=== PATIENT | male | born 1935 | race Caucasian/White ===

== ENCOUNTER → 2016-04-26 | Outpatient (CLI) | payer OTHER | LOC: BHFA 14:00 | PROVIDERS: ATTEND Internal Medicine Cardiovascular Disease | DX: I48.91 Unspecified atrial fibrillation (principal) ==

== ENCOUNTER → 2016-05-03 | Outpatient (CLI) | payer OTHER | LOC: FIMAGING 10:16 | PROVIDERS: ATTEND Physical Medicine & Rehabilitation | DX: G91.9 Hydrocephalus, unspecified (principal) | CPT/HCPCS: 82607-90; 84481-90 ==

== ENCOUNTER → 2016-06-03 | Outpatient (CLI) | payer OTHER ==
[~2016-06-03] MED LIST: IOPAMIDOL (ISOVUE-M 300) 15 ML VIAL IV ONE; LIDOCAINE 1% 30 ML SDV ONE; NA BICARBONATE 50 MEQ/50 ML VIAL ONE
== END ==
LOC: FIMAGING 08:18
PROVIDERS: ATTEND Neurological Surgery
PROC: 3E0R3KZ Introduction of Other Diagnostic Substance into Spinal Canal, Percutaneous Approach (ICD-10-PCS; principal; 2016-06-03)
DX: R26.81 Unsteadiness on feet (principal); G31.9 Degenerative disease of nervous system, unspecified
CPT/HCPCS: 62270; 78630; A9548; Q9967

== ENCOUNTER → 2016-08-12 | Outpatient (CLI) | payer OTHER | LOC: BHFA 15:30 | PROVIDERS: ATTEND Internal Medicine Interventional Cardiology | DX: I65.23 Occlusion and stenosis of bilateral carotid arteries (principal); I48.91 Unspecified atrial fibrillation; I35.2 Nonrheumatic aortic (valve) stenosis with insufficiency ==

== ENCOUNTER → 2017-01-03 | Outpatient (CLI) | payer OTHER ==
[~2017-01-03] MED LIST changes: +IOPAMIDOL (ISOVUE-M 200) 20 ML VIAL ONE; -IOPAMIDOL (ISOVUE-M 300) 15 ML VIAL IV ONE; -LIDOCAINE 1% 30 ML SDV ONE; +LIDOCAINE 1% 300 MG/30 ML SDV ONE; -NA BICARBONATE 50 MEQ/50 ML VIAL ONE
== END ==
LOC: FIMAGING 08:52
PROVIDERS: ATTEND Radiology Diagnostic Radiology
PROC: BR291ZZ Computerized Tomography (CT Scan) of Lumbar Spine using Low Osmolar Contrast (ICD-10-PCS; principal; 2017-01-03)
PROC: B01B1ZZ Fluoroscopy of Spinal Cord using Low Osmolar Contrast (ICD-10-PCS; principal; 2017-01-03)
DX: M48.061 Spinal stenosis, lumbar region without neurogenic claudication (principal)
CPT/HCPCS: 62304; 72132; 72265; Q9966

== ENCOUNTER → 2017-03-04 | Outpatient (CLI) | payer OTHER ==
[~2017-03-04] MED LIST changes: +IOPAMIDOL (ISOVUE-300) 150 ML BTL ONE; -IOPAMIDOL (ISOVUE-M 200) 20 ML VIAL ONE; +IOPAMIDOL (ISOVUE-M 300) 15 ML VIAL ONE
== END ==
LOC: FIMAGING 08:41
PROVIDERS: ATTEND Physician Assistant
DX: M46.49 Discitis, unspecified, multiple sites in spine (principal); M89.39 Hypertrophy of bone, multiple sites; M48.54XA Collapsed vertebra, not elsewhere classified, thoracic region, initial encounter for fracture
CPT/HCPCS: 72126; 72129; 72270; Q9967

== ENCOUNTER → 2017-05-23 | Outpatient (CLI) | payer OTHER | LOC: BMCIMAGING 13:44 | PROVIDERS: ATTEND Physician Assistant | DX: M23.8X1 Other internal derangements of right knee (principal); M22.41 Chondromalacia patellae, right knee ==

== ENCOUNTER 2017-06-28 14:27 | Inpatient (IN) | payer OTHER ==
[2017-06-28] MEDS ORDERED: NS 250 ML IV ONE (14:31)
[2017-06-28 14:38] LABS: PLATELET COUNT 185 10^3/uL (150-400)
--- NOTE | 2017-06-28 14:39 | EDPHY ---
H & P Time Seen by Provider: 06/28/17 14:31 HPI/ROS: CHIEF COMPLAINT: Altered mental status HISTORY OF PRESENT ILLNESS: Patient is a 81-year-old male with a history of diabetes, chronic renal disease and atrial fibrillation who presents to the emergency department after being found slumped on a fence post. When EMS arrived the patient was a and O x2. Per report, his symptoms had slightly improved. He was noted to have a right upper extremity weakness and left lower extremity weakness. EMS reports that glucose was normal. In route, the patient 's symptoms improved. His weakness resolved. Patient has no complaints at this time. He does not recall what happened. He does not know why he was lying on the fence post. Patient has no headache or neck pain. No chest pain or shortness of breath. No abdominal pain. No nausea or vomiting. The patient does not feel weak or numb. He has no visual change. Patient states that the only thing bothering him is us. REVIEW OF SYSTEMS: My complete review of systems is negative except as mentioned in the HPI. Past Medical/Surgical History: Includes diabetes, chronic renal disease, skin cancer, AFib Past surgical history: Noncontributory Social history: The patient does not smoke. Smoking Status: Never smoked Physical Exam: Vitals noted. Afebrile at 38 GENERAL: Well-appearing, in no acute distress, alert. HEENT: Eyes normal to inspection, normal pharynx, no signs of dehydration. NECK: No thyromegaly, no lymphadenopathy, supple. RESPIRATORY: Clear to auscultation bilaterally, no rales, rhonchi or wheezing. CVS: Regular rate and rhythm, no rubs, murmurs, or gallops. ABDOMEN: Soft, nontender, nondistended, no organomegaly. BACK: Normal to inspection, no CVA tenderness. SKIN: Normal color, no rash, warm, dry. No pallor. EXTREMITIES: No pedal edema, no calf tenderness, no Homans sign or cords, no joint swelling. NEURO/PSYCH: Higher functions: Alert and Oriented x3. Normal speech and cognition. Normal mood and affect. Cranial nerves: Normal as tested. Cerebellar: Normal as tested. Good finger to nose. Peripheral exam: Normal motor exam. Normal sensation. NIHSS = 0 Constitutional: Initial Vital Signs Temperature (C) 38.4 C H 06/28/17 14:27 Heart Rate 70 04/28/18 14:27 Respiratory Rate 16 06/28/17 14:27 Blood Pressure 126/76 H 06/28/17 14:27 O2 Sat (%) 93 06/28/17 14:27 O2 Delivery Mode Room Air Allergies/Adverse Reactions: CHICKEN FEATHERS Allergy (Mild, Uncoded 12/31/16 10:26) TESTED POSITIVE DUST Allergy (Mild, Uncoded 12/31/16 10:26) TESTED POSITIVE Home Medications: Medication Instructions Recorded Herbals/Supplements -Info Only 1 each PO AD 05/08/13 Metoprolol Succinate Xr [Toprol Xl 25 mg PO DAILY 05/08/13 50 mg (RX)] Naproxen [Naprosyn] 500 mg PO BID PRN 05/08/13 Furosemide [Lasix 20 MG (RX)] 10 mg PO 12/09/13 Warfarin Sodium 2.5 mg PO 12/09/13 GABAPENTIN 600 mg PO BID 02/27/17 Metformin HCl 500 mg PO DAILY 02/27/17 Medical Decision Making - Diagnostics Imaging Results: Imaging Impressions Chest X-Ray 06/28/17 14:31 Impression: No evidence for acute cardiopulmonary abnormality. Stable cardiomegaly. Other chronic findings as above. Head CT 06/28/17 14:31 Impression: No evidence for acute intracranial abnormality. Mild periventricular and deep hemispheric white matter change that can be seen with small vessel ischemic disease. Mild generalized cerebral atrophy. Results called and discussed with Dr. Carolyn Ceja on June 28, 2017 at 1511 hours. ED Course/Re-evaluation: In the emergency department I met EMS on arrival. I took report from the group product manager. On the patient's arrival he had no complaints. He did not recall the event. Laboratory studies, EKG, head CT and chest x-ray were ordered. Because the patient was noted to have a fever, blood cultures were ordered. Reviewed the patient's laboratory studies. White count was elevated at 12. Chemistry panel is unremarkable. INR was 1.2. His troponin was negative. Lactic acid is pending. EKG: Atrial fib at 70. Ventricular paced rhythm Chest x-ray: No acute disease I rechecked the patient while here. He had no notable focal deficits on repeat exam. He did not recall the event against a fence post. I am still waiting urine. The consider lumbar puncture but at this time he has no headache, photophobia, neck stiffness or other signs of meningitis or encephalitis. I discussed the case with Dr. Jones. She will admit the patient. 1638: Repeat temperature was 37.4 degrees. Differential Diagnosis: My differential includes but not limited to ischemic CVA, hemorrhagic CVA, dissection, aneurysm, TIA, ACS, acute IN, electrolyte abnormality, sugar abnormality, bacteremia, sepsis, pneumonia, urinary tract infection, meningitis , encephalitis - Data Points Laboratory Results: Laboratory Results 06/28/17 14:35 06/28/17 14:35 06/28/17 06/28/17 06/28/17 15:40 14:35 14:35 WBC RBC Hgb Hct MCV MCH MCHC RDW Plt Count MPV Neut % (Auto) Lymph % (Auto) [place] % (Auto) Eos % (Auto) Baso % (Auto) Nucleat RBC Rel Count Absolute Neuts (auto) Absolute Lymphs (auto) Absolute Monos (auto) Absolute Eos (auto) Absolute Basos (auto) Absolute Nucleated RBC Immature Gran % Immature Gran # PT 15.4 SEC H SEC (12.0-15.0) INR 1.20 H (0.83-1.16) APTT 32.2 SEC SEC (23.0-38.0) VBG Lactic Acid 1.1 mmol/L mmol/L (0.7-2.1) Sodium 141 mEq/L mEq/L (135-145) Potassium 4.9 mEq/L mEq/L (3.5-5.2) Chloride 103 mEq/L mEq/L (97-110) Carbon Dioxide 24 mEq/l mEq/l (22-31) Anion Gap 14 mEq/L mEq/L (8-16) BUN 27 mg/dL H mg/dL (7-23) Creatinine 0.8 mg/dL mg/dL (0.7-1.3) Estimated GFR > 60 Glucose 110 mg/dL H mg/dL (70-100) Calcium 9.2 mg/dL mg/dL (8.5-10.4) Troponin I < 0.012 ng/mL ng/mL (0.000-0.034) 06/28/17 14:35 WBC 12.02 10^3/uL H 10^3/uL (3.80-9.50) RBC 4.94 10^6/uL 10^6/uL (4.40-6.38) Hgb 15.5 g/dL g/dL (13.7-17.5) Hct 43.5 % % (40.0-51.0) MCV 88.1 fL fL (81.5-99.8) MCH 31.4 pg pg (27.9-34.1) MCHC 35.6 g/dL g/dL (32.4-36.7) RDW 13.2 % % (11.5-15.2) Plt Count 185 10^3/uL 10^3/uL (150-400) MPV 10.8 fL fL (8.7-11.7) Neut % (Auto) 85.2 % H % (39.3-74.2) Lymph % (Auto) 7.3 % L % (15.0-45.0) [place] % (Auto) 6.7 % % (4.5-13.0) Eos % (Auto) 0.2 % L % (0.6-7.6) Baso % (Auto) 0.2 % L % (0.3-1.7) Nucleat RBC Rel Count 0.0 % % (0.0-0.2) Absolute Neuts (auto) 10.25 10^3/uL H 10^3/uL (1.70-6.50) Absolute Lymphs (auto) 0.88 10^3/uL L 10^3/uL (1.00-3.00) Absolute Monos (auto) 0.80 10^3/uL 10^3/uL (0.30-0.80) Absolute Eos (auto) 0.02 10^3/uL L 10^3/uL (0.03-0.40) Absolute Basos (auto) 0.02 10^3/uL 10^3/uL (0.02-0.10) Absolute Nucleated RBC 0.00 10^3/uL 10^3/uL (0-0.01) Immature Gran % 0.4 % % (0.0-1.1) Immature Gran # 0.05 10^3/uL 10^3/uL (0.00-0.10) PT INR APTT VBG Lactic Acid Sodium Potassium Chloride Carbon Dioxide Anion Gap BUN Creatinine Estimated GFR Glucose Calcium Troponin I Medications Given: Discontinued Medications Sodium Chloride (Ns) 250 mls @ 500 mls/hr IV EDNOW ONE PRN Reason: Protocol Stop: 06/28/17 15:00 Last Admin: 06/28/17 15:11 Dose: 250 mls Departure - Departure Disposition: [facility] Acute Clinical Impression: Altered mental status Qualifiers: Altered mental status type: unspecified Qualified Code(s): R41.82 - Altered mental status, unspecified Condition: Good
[2017-06-28 14:49] LABS: INR 1.2 (0.83-1.16); PROTIME(PATIENT) 15.4 SEC (12.0-15.0)
--- NOTE | 2017-06-28 14:53 | CPEKG ---
Heart Rate: 70 RR Interval: 857 QRSD Interval: 154 QT Interval: 436 QTC Interval: 471 QRS [place]: 262 T Wave [place]: 93 EKG Severity - ABNORMAL ECG - EKG Impression: AFIB/FLUTTER AND VENTRICULAR-PACED RHYTHM Electronically Signed By: Neal Abdi 28-Jun-2017 22:19:22
[2017-06-28] MEDS ORDERED: NS 1,000 ML IV SCH (17:00)
[2017-06-28] MEDS ORDERED: ONDANSETRON DISINTEGRATING 4 MG TAB PO PRN (17:00)
[2017-06-28] MEDS ORDERED: ONDANSETRON 4 MG/2 ML VIAL IVP PRN (17:00)
[2017-06-28] MEDS ORDERED: ACETAMINOPHEN 325 MG TAB PO PRN (17:00)
[2017-06-28] MEDS ORDERED: D50W 25 GM/50 ML SYR IVP PRN (17:17)
[2017-06-28] MEDS ORDERED: WARFARIN SODIUM 2.5 MG TAB PO ONE (17:45)
--- NOTE | 2017-06-28 18:04 | GHP ---
[f rep st] HISTORY AND PHYSICAL DATE OF ADMISSION: 06/28/2017 CHIEF COMPLAINT: Found down. HISTORY OF PRESENT ILLNESS: The patient is a 81-year-old male with a history of diabetes, chronic kidney disease, diastolic heart failure and atrial fibrillation who presented to the emergency department via EMS after he was found slumped against a fence. He actually has no recollection of the events that occurred today. Per chart review, he has a history of dementia and has had previous workups by both Neurosurgery and [facility] Neurology for possible normal-pressure hydrocephalus. Lumbar puncture and cisternogram performed last year were not suggestive of NPH. His neurology consult at [facility] felt his symptoms were consistent with dementia either from Alzheimer's or vascular etiology. He has had chronic ataxia and has been followed by the neurosurgery service and is noted to have degenerative disk disease and spinal stenosis. Upon arrival to the emergency department, he had a temperature of 38.4. He was otherwise hemodynamically stable. He was initially reported by EMS to have right upper extremity and left lower extremity weakness. However, he moved all 4 extremities with no focal neuro deficits in the ED. He is able to tell me that he lives alone. He denies chest pain, shortness of breath, cough, or heart palpitations. He also denies orthopnea or paroxysmal dyspnea. He does have a history of chronic lower extremity edema. I also note he recently had his pacemaker interrogated on June 16 of this month and there was no evidence of high ventricular rates. He does endorse dysuria and urinary frequency and urgency. He denies abdominal pain, nausea, or vomiting. He is not sure if he has had fever or chills, but as above, he is febrile upon presentation. Workup in the emergency department reveals a white blood cell count of 12,000, temperature of 38.4. There was suspicion for infection. Blood cultures were drawn. He is admitted to the hospital for further evaluation. PAST MEDICAL HISTORY: 1. Diabetes mellitus. 2. Chronic kidney disease. 3. History of skin cancer. 4. Chronic heart failure. The last echo in our system was in 2010 and showed evidence of diastolic dysfunction. 5. Chronic lower extremity edema. 6. Atrial fibrillation, status post ablation and subsequently required ARTHUR cardioversion. 7. Sick sinus syndrome, status post pacemaker, which was interrogated June, with no evidence of high ventricular rates. 8. Dementia. Per Neurology consultation at [facility] in April 2017, either Alzheimer's versus vascular etiology. 9. Coronary artery disease based on angiogram from 2009. MEDICATIONS: Please see [facility] for completed updated outpatient medication list. ALLERGIES: Chicken feathers and dust. FAMILY HISTORY: Reviewed and noncontributory. SOCIAL HISTORY: The patient lives alone independently. He has a significant other who is not present at the bedside. He denies tobacco and alcohol. REVIEW OF SYSTEMS: A 10-point review of systems was performed and is negative except as per HPI. OBJECTIVE: VITAL SIGNS: Temperature 38.4 on arrival, repeat is 37.4, current blood pressure 115/68, heart rate 71, respiratory rate 16. He is 92% on room air. GENERAL: The patient is awake, alert, oriented to person only. HEENT: Head is atraumatic, normocephalic. Pupils equal, round, and reactive to light. Extraocular muscles intact. Oropharynx is clear. Mucous membranes are dry. NECK: Supple. There is no JVD. HEART: Regular rate and rhythm. LUNGS: Clear to auscultation bilaterally. ABDOMEN: Soft, obese, nondistended, nontender with normoactive bowel tones. EXTREMITIES: 2+ bilateral pitting lower extremity edema. NEUROLOGIC: He has no facial asymmetry. Pronator drift is negative. No focal motor deficits. LABORATORY DATA: CBC reveals a white blood cell count of 12, with 85% neutrophils. INR is 1.2. Lactic acid 1.1. Basic metabolic panel is remarkable for BUN of 27. Troponin is negative. Procalcitonin is pending. Head CT performed in the emergency department shows no acute intracranial abnormality. White matter changes are noted, possibly related to small-vessel ischemic disease, as well as mild generalized cerebral atrophy. Chest x-ray from the emergency department, personally reviewed and interpreted. There is no acute cardiopulmonary process. He does have stable cardiomegaly and evidence of a cardiac pacemaker. EKG shows a ventricular paced rhythm with a rate of 70. ASSESSMENT/PLAN: The patient is a 81-year-old male with history of multiple medical problems including recently diagnosed dementia, who presented to the emergency department after being found unresponsive. Acute encephalopathy. I suspect an infectious etiology given his fever, elevated white count, and urinary symptoms. Chest x-ray is clear. Urinalysis is still pending. He will be bladder scanned now and straight cath if indicated. Blood cultures are pending. We will also send urine culture if indicated. I will check a procalcitonin and likely start him on ceftriaxone, but will await his UA results first. He has no septic physiology with a normal lactate. UTI. BCx's and UCx pending. Starting Ceftriaxone. Turns out he straight caths QID for urinary retention. Atrial fibrillation, status post pacemaker. He is currently rate controlled. It looks like he takes Coumadin, though his INR is subtherapeutic. Will ask pharmacy to dose Coumadin and likely continue his metoprolol in the morning if he remains normotensive. I reviewed his outpatient records. He just had his pacemaker interrogated last week, which showed no evidence of tachycardia, atrial fibrillation, or high ventricular rates. Diabetes mellitus type 2. His blood sugar on arrival was 110. Will hold his metformin and start sliding scale insulin. Send an A1c. Dementia. Recently evaluated by Neurology at [facility], thought to be either Alzheimer's or vascular in etiology. He has previously had evaluations for normal-pressure hydrocephalus, and per his recent neurology consult, he is not thought to have NPH. Chronic ataxia. He has been followed by Neurosurgery and has evidence of degenerative disk disease, as well as spinal and neuroforaminal stenosis. PT and OT evaluations are requested. Deep venous thrombosis prophylaxis. Will give prophylactic dose Lovenox given his subtherapeutic INR. This can be stopped once his INR is closer to therapeutic range. Code status. The patient is full code. Disposition. The patient is admitted to inpatient status. I anticipate greater than 48 hours hospitalization for ongoing evaluation and management of his acute encephalopathy and possibly associated infection, PT and OT evaluations are requested. He may warrant SNF rehab. /[id number]/MODL MTDD
[2017-06-28] MEDS: INSULIN LISPRO 100 UNIT/ML SC SCH (18:10)
--- NOTE | 2017-06-28 18:46 | PDMN ---
Medical Necessity Medical necessity: C/M review: est. > 2 MN LOS for eval and TX of acute encephalopathy, suspect infectious etiology given fever, elevated WBC And urinary symptoms, UA results pending, requiring IV fluids x 1 bag, ongoing IV Ceftriaxone, acute inpt PT/OT, comorbid patient found unresponsive just prior to this admission, atrial fibrillation S/P pacemaker, type 2 diabetes, dementia , chronic ataxia, history of chronic kidney disease, chronic heart failure, skin cancer, chronic lower extremity edema, CAD, sick sinus syndrome S/P pacemaker per H/P.
[2017-06-28] MEDS: METOPROLOL TARTRATE 50 MG TAB PO SCH (20:55)
[2017-06-28] MEDS: GABAPENTIN 300 MG CAP PO SCH (20:55)
[2017-06-29 05:14] LABS: PLATELET COUNT 158 10^3/uL (150-400)
[2017-06-29 05:22] LABS: INR 1.29 (0.83-1.16); PROTIME(PATIENT) 16.3 SEC (12.0-15.0)
[2017-06-29] MEDS: INSULIN LISPRO 100 UNIT/ML SC SCH ×3 (07:37→17:49)
[2017-06-29] MEDS: ENOXAPARIN 40 MG/0.4 ML SYR SC SCH (08:43)
[2017-06-29] MEDS: METOPROLOL TARTRATE 50 MG TAB PO SCH ×2 (08:44→22:02)
[2017-06-29] MEDS: GABAPENTIN 300 MG CAP PO SCH ×2 (08:44→22:02)
[2017-06-29] MEDS: FUROSEMIDE 20 MG TAB PO SCH (08:44)
--- NOTE | 2017-06-29 13:21 | HOSPPROG ---
Hospitalist Progress Note Assessment/Plan: Patient is a 81-year-old male with a history of diabetes, chronic kidney disease , diastolic heart failure and atrial fibrillation who presented the emergency department via EMS after he was found slumped against a fence. He had no recollection of the events that occurred. He has a history of dementia and has had workups by Neurosurgery and [facility] Neurology for possible normal pressure hydrocephalus. He had a consult at [facility] who felt his symptoms were consistent with dementia either from Alzheimer's or vascular etiology. Today is my 1st encounter with the patient. Chart reviewed. * acute encephalopathy -CT of the head shows no inter no acute intracranial abnormality. He has white matter changes -chest x-ray shows no acute cardiopulmonary process he does have stable cardiomegaly -EKG shows AV paced rhythm -suspect this is secondary from a urinary tract infection -procalcitonin is 0.12 * urinary tract infection -started on ceftriaxone-awaiting for urine culture and blood culture -patient self caths 4 x day -trial of flomax * atrial fibrillation status post pacemaker -metoprolol and Coumadin -INR is subtherapeutic, he sees Dr Wright in OP setting * diabetes type 2 -A1c is pending * dementia -he lives alone, concerned he doesn't have insight on his care * chronic ataxia -PT and OT to see *chronic lower extremity edema -patient said this has been ongoing for years, he doesn't know why *Plan: will ask PT, OT and ST to see, concerned he needs a higher level of care and will likely refuse. During my interview he is alert and oriented, but unclear how he got here and why he is here. Subjective: Jamey says he feels better today. No complaints. Objective: Vital Signs Temp Pulse Resp BP Pulse Ox 36.4 C 77 16 118/80 95 06/29/17 12:14 06/29/17 12:14 06/29/17 12:14 06/29/17 12:14 06/29/17 12:14 Laboratory Results 06/29/17 04:40 06/29/17 04:40 06/28/17 06/29/17 06/30/17 05:59 05:59 05:59 Intake Total 1250 Output Total 1025 600 Balance 225 -600 PT 16.3 SEC (12.0-15.0) H 06/29/17 04:40 INR 1.29 (0.83-1.16) H 06/29/17 04:40 - Physical Exam Constitutional: no apparent distress, appears nourished, not in pain Eyes: PERRL Ears, Nose, Mouth, Throat: hearing normal Cardiovascular: regular rate and rhythym Respiratory: no respiratory distress Gastrointestinal: normoactive bowel sounds, other (round abdomen) Skin: warm Neurologic: AAOx3 Psychiatric: thought process linear, poor insight, poor judgement, poor memory ICD10 Worksheet Patient Problems: Problems Problem Status Onset Altered mental status Acute Chest pain Acute
--- NOTE | 2017-06-29 15:04 | ASMTCMCOM ---
CM Note CM Note Notes: Patient found down with no recollection of what happened. In the ED, he was able to provide more history. He has a cardiac history and is seen by Dr Hopkins. He also has kidney disease and diabetes. Patient has a UTI. He tells me he straight catheterizes himself 2x day. I tried to explain to him that the medical team does not feel he's safe to return home. I explained that we could arrange home care or that he could go to a SNF. He displayed very little insight into his situation and the fact that he was found outside, passed out, with no knowlege of the precipitating event. He says he needs to pay his rent on 07/01. Per patient and demographics, he has a friend/girlfriend named Komal who drives him places since he recently lost his license (he says it was due to an address change). I suggested that she could bring him his checkbook if he is still here on 07/01. I encouraged patient to think about what he will agree to upon discharge since we will likely require that he either go to SNF or have home care. Case Management will follow. Date Signed: 06/29/2017 03:03 PM Electronically Signed By:Heather Gardner RN
[2017-06-29] MEDS ORDERED: WARFARIN SODIUM 2.5 MG TAB PO SCH (16:00)
[2017-06-30 05:36] LABS: INR 1.24 (0.83-1.16); PROTIME(PATIENT) 15.8 SEC (12.0-15.0)
[2017-06-30] MEDS: INSULIN LISPRO 100 UNIT/ML SC SCH ×4 (08:24→22:03)
[2017-06-30] MEDS: METOPROLOL TARTRATE 50 MG TAB PO SCH ×2 (08:27→21:47)
[2017-06-30] MEDS: ENOXAPARIN 40 MG/0.4 ML SYR SC SCH (08:27)
[2017-06-30] MEDS: GABAPENTIN 300 MG CAP PO SCH ×2 (08:27→21:47)
[2017-06-30] MEDS: FUROSEMIDE 20 MG TAB PO SCH (08:27)
[2017-06-30] MEDS ORDERED: FUROSEMIDE 20 MG/2 ML VIAL IVP ONE (09:40)
--- NOTE | 2017-06-30 09:40 | HOSPPROG ---
Hospitalist Progress Note Assessment/Plan: Patient is a 81-year-old male with a history of diabetes, chronic kidney disease , diastolic heart failure and atrial fibrillation who presented the emergency department via EMS after he was found slumped against a fence. He had no recollection of the events that occurred. He has a history of dementia and has had workups by Neurosurgery and [facility] Neurology for possible normal pressure hydrocephalus. He had a consult at [facility] who felt his symptoms were consistent with dementia either from Alzheimer's or vascular etiology. * acute encephalopathy -CT of the head shows no inter no acute intracranial abnormality. He has white matter changes -chest x-ray shows no acute cardiopulmonary process he does have stable cardiomegaly -EKG shows AV paced rhythm -suspect this is secondary from a urinary tract infection -procalcitonin is 0.12 -he is back to his baseline most likely, he is alert and oriented -blood cx show no growth * urinary tract infection -started on ceftriaxone-urine culture is lyon sensitive -patient self caths 4 x day (have asked nursing staff to monitor him when he self caths) -trial of flomax *Urinary retention * atrial fibrillation status post pacemaker -metoprolol and Coumadin -INR is subtherapeutic, he sees Dr Wright in OP setting * diabetes type 2 -A1c is 6.3 * dementia -he lives alone, concerned he doesn't have insight on his care -he is definitely clearer today and has an understanding of his PMH * chronic ataxia -PT and OT seeing -reviewed PT note and patient has a wide gait, at baseline uses a cane -recommendation is a SNF vs home care *chronic lower extremity edema -patient said this has been ongoing for years, he doesn't know why -bit worse today, will add one dose of iv lasix and compression hose *Plan: give a low dose of iv Lasix today. he refuses snf, he has improved during his stay, hopefully can dc soon Subjective: Jamey wants to go home. Objective: Vital Signs Temp Pulse Resp BP Pulse Ox 36.6 C 77 18 153/95 H 92 06/30/17 08:00 06/30/17 08:27 06/30/17 08:00 06/30/17 08:27 06/30/17 08:00 Microbiology 06/28/17 17:05 Urine Culture - Final Urine,Clean Catch Escherichia Coli Laboratory Results 06/29/17 04:40 06/29/17 04:40 06/29/17 06/30/17 07/01/17 05:59 05:59 05:59 Intake Total 1250 650 Output Total 1025 2024 200 Balance 225 -1375 -200 PT 15.8 SEC (12.0-15.0) H 06/30/17 05:10 INR 1.24 (0.83-1.16) H 06/30/17 05:10 - Physical Exam Constitutional: not in pain, chronically ill appearing Eyes: PERRL Ears, Nose, Mouth, Throat: hearing normal Cardiovascular: regular rate and rhythym, edema (2+ pitting edema in lower ext) Respiratory: no respiratory distress Gastrointestinal: normoactive bowel sounds Skin: warm, other (right great toe reddened, patient says he has chronic fungal infections) Neurologic: AAOx3 Psychiatric: interacting appropriately, not anxious, poor insight, poor memory ICD10 Worksheet Patient Problems: Problems Problem Status Onset Altered mental status Acute Chest pain Acute
[2017-06-30] MEDS ORDERED: FUROSEMIDE 20 MG/2 ML VIAL ONE (12:02)
[2017-06-30] MEDS ORDERED: WARFARIN SODIUM 5 MG TAB PO ONE (16:00)
--- NOTE | 2017-06-30 16:56 | ASMTCMCOM ---
CM Note CM Note Notes: PT/OT recommending SNF. Met w/pt to discuss and was open to idea of SNF. We talked about HHC too and he said he would prefer SNF rehab. Pt does have some dementia so I was hoping to meet w/girlfriend Komal also but was not at hospital; I did leave voicemail with her to discuss SNF choices. Sent referral to 2 SNF's in [place] since pt resides in [place], however, need to discuss w/Komal as I am not sure where she resides and she does seem to be quite involved as pt lives w/her part-time. CM will follow. Date Signed: 06/30/2017 04:56 PM Electronically Signed By:Serena Rodrigues RN
[2017-07-01 05:22] LABS: INR 1.22 (0.83-1.16); PROTIME(PATIENT) 15.6 SEC (12.0-15.0)
[2017-07-01] MEDS: ENOXAPARIN 40 MG/0.4 ML SYR SC SCH (09:07)
[2017-07-01] MEDS: GABAPENTIN 300 MG CAP PO SCH ×2 (09:08→21:30)
[2017-07-01] MEDS: metFORMIN HCL 500 MG TAB PO SCH (09:08)
[2017-07-01] MEDS: FUROSEMIDE 20 MG TAB PO SCH (09:08)
[2017-07-01] MEDS: METOPROLOL TARTRATE 50 MG TAB PO SCH ×2 (09:09→21:30)
[2017-07-01] MEDS: INSULIN LISPRO 100 UNIT/ML SC SCH ×3 (09:30→18:33)
[2017-07-01] MEDS ORDERED: WARFARIN SODIUM 5 MG TAB PO ONE (16:00)
--- NOTE | 2017-07-01 16:16 | ASMTCMCOM ---
CM Note CM Note Notes: Today pt and girlfriend Komal ([phone]) request SNF in [place], pt accepted at [facility]. Komal reports she will take pt to live w her after d/c from SNF, at least until the end of summer. Pt completed paperwork today naming Komal as MDPOA. D/c plan of care: [facility] when medically stable. Date Signed: 07/01/2017 04:16 PM Electronically Signed By:FATOU Chakraborty
--- NOTE | 2017-07-01 17:15 | HOSPPROG ---
Hospitalist Progress Note Assessment/Plan: Patient is a 81-year-old male with a history of diabetes, chronic kidney disease , diastolic heart failure and atrial fibrillation who presented the emergency department via EMS after he was found slumped against a fence. He had no recollection of the events that occurred. He has a history of dementia and has had workups by Neurosurgery and [facility] Neurology for possible normal pressure hydrocephalus. He had a consult at [facility] who felt his symptoms were consistent with dementia either from Alzheimer's or vascular etiology. * acute encephalopathy -CT of the head shows no inter no acute intracranial abnormality. He has white matter changes -chest x-ray shows no acute cardiopulmonary process he does have stable cardiomegaly -EKG shows AV paced rhythm -suspect this is secondary from a urinary tract infection -procalcitonin is 0.12 -he is back to his baseline most likely, he is alert and oriented -blood cx show no growth * urinary tract infection associated with slef cath 4 x day -started on ceftriaxone-urine culture is lyon sensitive -patient self caths 4 x day (have asked nursing staff to monitor him when he self caths) -trial of flomax *Urinary retention * atrial fibrillation status post pacemaker -metoprolol and Coumadin -INR is subtherapeutic, he sees Dr Wright in OP setting * diabetes type 2 -A1c is 6.3 * dementia -he lives alone, concerned he doesn't have insight on his care -he is definitely clearer today and has an understanding of his PMH * chronic ataxia -PT and OT seeing -reviewed PT note and patient has a wide gait, at baseline uses a cane -recommendation is a SNF vs home care *chronic lower extremity edema -patient said this has been ongoing for years, he doesn't know why -bit worse today, will add one dose of iv lasix and compression hose *Plan: Jamey is willing to go to rehab to strengthen, his friend Komal was at the bedside during my evaluation. She is concerned he had heat stroke. Was outside Friday all day with his jacket on, not eating or drinking much. He is not feeling well today and would like to stay another night. He is very tired. Have asked nursing staff not to do vital signs at night. Subjective: Jamey said he feels exhausted and wants to rest. Objective: Vital Signs Temp Pulse Resp BP Pulse Ox 36.6 C 71 16 115/71 90 L 07/01/17 15:41 07/01/17 15:41 07/01/17 15:41 07/01/17 15:41 07/01/17 15:41 Laboratory Results 06/29/17 04:40 07/01/17 04:36 06/30/17 07/01/17 07/02/17 05:59 05:59 05:59 Intake Total 650 450 500 Output Total 2024 310 650 Balance -1375 -2650 -150 PT 15.6 SEC (12.0-15.0) H 07/01/17 04:36 INR 1.22 (0.83-1.16) H 07/01/17 04:36 - Physical Exam Constitutional: appears nourished, not in pain, chronically ill appearing Eyes: PERRL Ears, Nose, Mouth, Throat: hearing normal Cardiovascular: regular rate and rhythym Respiratory: no respiratory distress Skin: warm Musculoskeletal: generalized weakness Neurologic: AAOx3 Psychiatric: interacting appropriately ICD10 Worksheet Patient Problems: Problems Problem Status Onset Altered mental status Acute Chest pain Acute
[2017-07-02 05:32] LABS: INR 1.4 (0.83-1.16); PROTIME(PATIENT) 17.3 SEC (12.0-15.0)
[2017-07-02] MEDS: METOPROLOL TARTRATE 50 MG TAB PO SCH (05:34)
[2017-07-02 08:09] VITALS: BP 144/89
[2017-07-02] MEDS: INSULIN LISPRO 100 UNIT/ML SC SCH ×2 (08:14→12:58)
--- NOTE | 2017-07-02 08:38 | HOSPPROG ---
Hospitalist Progress Note Assessment/Plan: Patient is a 81-year-old male with a history of diabetes, chronic kidney disease , diastolic heart failure and atrial fibrillation who presented the emergency department via EMS after he was found slumped against a fence. He had no recollection of the events that occurred. He has a history of dementia and has had workups by Neurosurgery and [facility] Neurology for possible normal pressure hydrocephalus. He had a consult at [facility] who felt his symptoms were consistent with dementia either from Alzheimer's or vascular etiology. * acute encephalopathy -CT of the head shows no inter no acute intracranial abnormality. He has white matter changes -chest x-ray shows no acute cardiopulmonary process he does have stable cardiomegaly -EKG shows AV paced rhythm -suspect this is secondary from a urinary tract infection -procalcitonin is 0.12 -he is back to his baseline most likely, he is alert and oriented -blood cx show no growth * urinary tract infection associated with self cath 4 x day -started on ceftriaxone-urine culture is lyon sensitive -patient self caths 4 x day (have asked nursing staff to monitor him when he self caths) -trial of flomax *Urinary retention -self caths * atrial fibrillation status post pacemaker -metoprolol and Coumadin -INR is subtherapeutic, he sees Dr Wright in OP setting * diabetes type 2 -A1c is 6.3 * dementia -he lives alone, concerned he doesn't have insight on his care -he is definitely clearer today and has an understanding of his PMH * chronic ataxia -PT and OT seeing -reviewed PT note and patient has a wide gait, at baseline uses a cane -recommendation is a SNF *chronic lower extremity edema -patient said this has been ongoing for years, he doesn't know why -bit worse today, will add one dose of iv lasix and compression hose *Plan: rehab today Subjective: Jamey has no complaints. Objective: Vital Signs Temp Pulse Resp BP Pulse Ox 36.5 C 77 17 144/89 H 94 07/02/17 08:09 07/02/17 08:09 07/02/17 08:09 07/02/17 08:09 07/02/17 08:09 Laboratory Results 06/29/17 04:40 07/01/17 04:36 05/01/18 05/02/18 05/03/18 05:59 05:59 05:59 Intake Total 450 800 Output Total 3100 1700 550 Balance -2650 -900 -550 PT 17.3 SEC (12.0-15.0) H 07/02/17 04:33 INR 1.40 (0.83-1.16) H 07/02/17 04:33 - Physical Exam Constitutional: no apparent distress, appears nourished, not in pain Eyes: PERRL Ears, Nose, Mouth, Throat: hearing normal Cardiovascular: regular rate and rhythym Respiratory: no respiratory distress Skin: warm Musculoskeletal: generalized weakness Psychiatric: interacting appropriately (patient has sig short term memory losses , doesn't remember me after caring for him for the last several days. ), poor memory ICD10 Worksheet Patient Problems: Problems Problem Status Onset Altered mental status Acute Chest pain Acute
--- NOTE | 2017-07-02 08:50 | PDIAF ---
- Diagnosis Diagnosis: acute on chronic encephalopathy,uti Code Status: Full Code - Medication Management Discharge Medications: Medications to Continue on Transfer Herbals/Supplements -Info Only 1 each PO AD 05/08/13 [Last Taken Unknown] Furosemide [Lasix 20 MG (*)] 10 mg PO DAILY 12/09/13 [Last Taken 06/28/17] Gabapentin [Neurontin 300 MG (*)] 600 mg PO BID 02/27/17 [Last Taken 06/28/17 08 :00] metFORMIN HCL [Metformin HCl] 500 mg PO DAILY 02/27/17 [Last Taken 06/28/17] Metoprolol Tartrate 50 mg PO BID 06/28/17 [Last Taken 06/28/17 08:00] Acetaminophen [Tylenol 325mg (*)] 650 mg PO Q4HRS PRN tab 07/02/17 [Last Taken Unknown] Tamsulosin HCl [Flomax 0.4 MG (*)] 0.4 mg PO DAILY #10 cap 07/02/17 [Last Taken Unknown] Warfarin Sodium 5 mg PO DAILY #30 tablet 07/02/17 [Last Taken Unknown] Discharge Medications: Refer to the Discharge Home Medication list for PRN reason. - Orders Services needed: Physical Therapy, Occupational Therapy, Speech Language Pathologist Diet Recommendation: no restrictions on diet Diet Texture: Regular Texture Diet Additional Instructions: INR has been subtherapeutic, goal is 2-3 patient needs to f/u with Dr Hopkins he has chronic urinary retention, self caths 4 x a day; monitor in rehab to be sure he does this w sterile technique FLOMAX is a new medication for him - Labs/Radiology PT/INR Date: 07/04/16 (q 3 days till stable) - Follow Up Care Current Providers and Referrals: Patient,NotPresent [Unknown] - As per Instructions Urban Hopkins MD [Medical Doctor] -
[2017-07-02] MEDS ORDERED: TAMSULOSIN HCL 0.4 MG CAP PO SCH (09:00)
[2017-07-02] MEDS: ENOXAPARIN 40 MG/0.4 ML SYR SC SCH (10:23)
[2017-07-02] MEDS: metFORMIN HCL 500 MG TAB PO SCH (10:23)
[2017-07-02] MEDS: GABAPENTIN 300 MG CAP PO SCH (10:23)
[2017-07-02] MEDS: FUROSEMIDE 20 MG TAB PO SCH (10:24)
--- NOTE | 2017-07-02 10:35 | GDS ---
[f rep st] DISCHARGE SUMMARY DISCHARGE DIAGNOSES: 1. Acute encephalopathy on chronic mild dementia. 2. Urinary tract infection associated with self cathing 4 times a day. 3. Urinary retention. 4. Atrial fibrillation status post pacemaker. 5. Diabetes type 2. 6. Dementia. 7. Chronic ataxia. 8. Chronic lower extremity edema. HISTORY OF PRESENT ILLNESS: Briefly, the patient is a 82-year-old male with a history of diabetes, chronic kidney disease, diastolic heart failure, and atrial fibrillation who presented in the emergency department via EMS after he was found slumped against a fence. He had no recollection of the events that occurred. Per his friend, he had been working outside all day. It was hot. He had not been eating and drinking. She was worried that he had had heat stroke. He had a CT of his head that showed no acute abnormality. He improved with hydration. HOSPITAL COURSE BY PROBLEM: 1. Acute encephalopathy. There was no clear-cut evidence of why he was so confused except that he had a urinary tract infection and was likely dehydrated. He was treated for the urinary tract infection. He is alert and oriented to himself. He has short term memory losses. 2. Urinary tract infection associated with self cathing himself 4 times a day. His urine culture was pansensitive. He was treated with ceftriaxone. 3. Urinary retention. Will order Flomax to see if this helps. 4. Atrial fibrillation. He is status post pacemaker. He is on metoprolol and on Coumadin. INR has been subtherapeutic. This will be monitored at the rehab facility. 5. Diabetes type 2. His A1c is 6.3. 6. Dementia. I am very concerned that he lives alone and he does not have insight on its care. He improved during his stay with hydration. He will go to rehab and have Speech Therapy work with him. 7. Chronic ataxia. He has had an ongoing wide gait. Recommendation is care home facility. 8. Chronic lower extremity edema. He is on oral Lasix. He received a dose of IV Lasix with improvement. DISCHARGE CONDITION: Stable. Blood pressure is 144/89, heart rate is 77, respiratory rate of 17, O2 sats on room air 94%, temperature is 36.5 Celsius. MEDICATIONS AT DISCHARGE: Please see the EMR. Only new medication is Flomax. DISCHARGE INSTRUCTIONS: 1. INR with a goal of 2 to 3. 2. Follow up with Dr. Hopkins. 3. He has chronic urinary retention. I have asked for the rehab facility to make sure he is able to self cath with sterile technique. Greater than 30 minutes discharging and coordinating care. /[id number]/MODL MTDD
--- NOTE | 2017-07-02 14:36 | ASDISCHSUM ---
Discharge Information Plan Status:SNF Medically Cleared to Leave: Discharge Date: D/C Disposition: ADT D/C Disposition:Assisted Facility Projected Discharge Date:07/02/2017 11:00 AM Transportation at D/C: Discharge Delay Reason: Follow-Up Date:07/02/2017 11:00 AM Discharge Slot: Final Diagnosis: Placement Information Referral Type:*Group Home/SNF Referral ID:[id number] Provider Name:[facility] Address 1:[address] Address 2: City:[place] Selection Factors: State:[place] Patient Contact Information Contact Name:YANIRA Relationship:Friend Address: Work Phone: [facility]:[place] Alternate Phone: [facility]/Zip Code:[place] [address] Email: Financial Information Financial Class:Medicare Primary Plan Desc:MEDICARE INPATIENT Primary Plan Number:[id number] Secondary Plan Desc:[employer] Secondary Plan Number:[id number] Assessment Information [facility] CM Progress Note CM Note CM Note Notes: Patient found down with no recollection of what happened. In the ED, he was able to provide more history. He has a cardiac history and is seen by Dr Hopkins. He also has kidney disease and diabetes. Patient has a UTI. He tells me he straight catheterizes himself 2x day. I tried to explain to him that the medical team does not feel he's safe to return home. I explained that we could arrange home care or that he could go to a SNF. He displayed very little insight into his situation and the fact that he was found outside, passed out, with no knowlege of the precipitating event. He says he needs to pay his rent on 07/01. Per patient and demographics, he has a friend/girlfriend named Komal who drives him places since he recently lost his license (he says it was due to an address change). I suggested that she could bring him his checkbook if he is still here on 07/01. I encouraged patient to think about what he will agree to upon discharge since we will likely require that he either go to SNF or have home care. Case Management will follow. Date Signed: 06/29/2017 03:03 PM Electronically Signed By:Heather Gardner RN LACE LACE Length of stay for Answers: 3 days current admission Acuity / Level of Answers: Yes Care: Did the patient have an inpatient admission? Comorbidities - select Answers: Congestive heart failure all that apply Coronary Artery Disease Dementia Diabetes (uncontrolled or controlled) Mild liver or renal disease # of Emergency department Answers: 1-2 visits in the last 6 months Score: 17 Date Signed: 07/02/2017 02:34 PM Electronically Signed By:Tyra Barth LCSW [facility] Progress Note CM Note CM Note Notes: PT/OT recommending SNF. Met w/pt to discuss and was open to idea of SNF. We talked about HHC too and he said he would prefer SNF rehab. Pt does have some dementia so I was hoping to meet w/girlfriend Komal also but was not at hospital; I did leave voicemail with her to discuss SNF choices. Sent referral to 2 SNF's in [place] since pt resides in [place], however, need to discuss w/Komal as I am not sure where she resides and she does seem to be quite involved as pt lives w/her part-time. CM will follow. Date Signed: 06/30/2017 04:56 PM Electronically Signed By:Serena Rodrigues RN [facility] CM Progress Note CM Note CM Note Notes: Today pt and girlfrienirene Sauceda ([phone]) request SNF in [place], pt accepted at [facility]. Komal reports she will take pt to live w her after d/c from [facility], at least until the end of summer. Pt completed paperwork today naming Komal as MDPOA. D/c plan of care: [facility] when medically stable. Date Signed: 07/01/2017 04:16 PM Electronically Signed By:FATOU Chakraborty [facility] CM Progress Note CM Note CM Note Notes: Pt to DC to [facility] today. arranged transport for 2:30. Final orders faxed. Date Signed: 07/02/2017 02:33 PM Electronically Signed By:Tyra Barth LCSW Intervention Information Intervention Type:*IM-Signed Date of Service:07/02/2017 10:35 AM Patient Type:Inpatient Staff Member:Trice Chan Hours: Discipline: Severity: Comment:
== END 2017-07-02 14:30 | DRG 698 ==
LOC: EDUNIT# → OBSVTOIN 16:10 → F3N 17:34 → F1N 07-01 18:38
PROVIDERS: ADMIT Hospitalist; ATTEND Hospitalist
DX: T83.598A Infection and inflammatory reaction due to other prosthetic device, implant and graft in urinary system, initial encounter (principal); G93.49 Other encephalopathy; I50.30 Unspecified diastolic (congestive) heart failure; E86.0 Dehydration; R33.9 Retention of urine, unspecified; F03.90 Unspecified dementia, unspecified severity, without behavioral disturbance, psychotic disturbance, mood disturbance, and anxiety; I48.91 Unspecified atrial fibrillation; E11.9 Type 2 diabetes mellitus without complications; R27.0 Ataxia, unspecified; N18.9 Chronic kidney disease, unspecified; Z95.0 Presence of cardiac pacemaker; Z79.01 Long term (current) use of anticoagulants; Z79.84 Long term (current) use of oral hypoglycemic drugs
CPT/HCPCS: 92523-GN; 97110-GP; 97116-GP; 97162-GP; 97165-GO; 97530-GO; 97530-GP; 97535-GO; G8978-GP-CJ; G8979-GP-CI; G8987-GO-CJ; G8988-GO-CI; G8989-GO-CJ; G9168-GN-CJ; G9169-GN-CI; J0696; J1650; J1815; J1940

== ENCOUNTER → 2017-07-24 | Outpatient (CLI) | payer OTHER | LOC: BHFA 14:45 | PROVIDERS: ATTEND Internal Medicine Cardiovascular Disease | DX: I48.91 Unspecified atrial fibrillation (principal) ==

== ENCOUNTER 2017-11-25 20:33 | Inpatient (IN) | payer OTHER ==
--- NOTE | 2017-11-25 20:35 | EDPHY ---
H & P Time Seen by Provider: 11/25/17 20:35 HPI/ROS: HPI CHIEF COMPLAINT: Possible TIA. HISTORY OF PRESENT ILLNESS: This is 82-year-old male, has a history of hypertension, diabetes, [place] had a brief period of him unable to answer questions. This was approximately 20-30 minutes. His became concerned called 911. EMS arrived , they tried to take a blood sugar but could not get the glucometer to work so they did give him oral glucose. He was not diaphoretic. EMS reports that he had a left-sided facial droop and that he was slow to answer questions during transport but this is all since resolved. Patient arrives to the emergency room with normal neurological exam. Patient denies any chest pain or shortness of breath, denies headache, denies focal weakness, denies numbness or tingling. Answers my questions appropriately and there is no evidence of facial droop on exam. EMS reports during the 40 min transport time he improved. Past Medical History: Hypertension, diabetes Past Surgical History: No recent surgery Social History: He denies drugs alcohol tobacco Family History: Noncontributory ROS REVIEW OF SYSTEMS: 10 Systems were reviewed and negative with the exception of the elements mentioned in the history of present illness. Exam Constitutional appears well nontoxic triage nursing summary reviewed, vital signs reviewed, awake/alert. Eyes normal conjunctivae and sclera, EOMI, PERRLA. HENT normal inspection, atraumatic, moist mucus membranes, no epistaxis, neck supple/ no meningismus, no raccoon eyes. Respiratory clear to auscultation bilaterally, normal breath sounds, no respiratory distress, no wheezing. Cardiovascular rate normal, regular rhythm, no murmur, no edema, distal pulses normal. Gastrointestinal soft, non-tender, no rebound, no guarding, normal bowel sounds, no distension, no pulsatile mass. Genitourinary no CVA tenderness. Musculoskeletal no midline vertebral tenderness, full range of motion, no calf swelling, no tenderness of extremities, no meningismus, good pulses, neurovascularly intact. Skin pink, warm, & dry, no rash, skin atraumatic. Neurologic normal neurological exam, no focal neuro deficit, awake, alert and oriented x 3, AAOx3, moves all 4 extremities equally, motor intact, sensory intact, CN II-XII intact, normal cerebellar, normal vision, normal speech. Psychiatric normal mood/affect. Heme/Lymph/Immune no lymphadenopathy. Differential Diagnosis: Includes but is not limited to in a particular order TIA, CVA, hypoglycemia, electrolyte disturbance, dehydration Medical Decision Making: Plan for this patient CT scan head without contrast, blood work. Re-evaluate. Re-evaluation: EKG interpretation by me on record in [employer] system. Impression time of EKG 2045, this is a ventricularly paced rhythm. No signs of acute ischemia. No ST elevation or ST depression. Is unchanged from his previous EKG dated 06/28. CT scan head without contrast negative for acute stroke or bleed called to me by Dr. Costa. ED x-ray chest one view pacemaker in place. Cardiomegaly. No failure. Given the patient's neurological symptoms before presentation is concerning for TIA. The patient is back to his normal neurological state. Patient need to be admitted observed overnight for further TIA evaluation. Patient's neurological status at this time is unremarkable without any cranial nerve deficit and is speaking coherently with me answer my questions appropriately. Unclear etiology of what happened him earlier today. Patient will be admitted to the hospital for TIA rule out and observation. I spoke with the hospitalist service Dr. Jones agrees to admit. Source: Patient, EMS - Personal History Tetanus Vaccine Date: WITHIN 10 YRS - Medical/Surgical History Hx Asthma: Yes Hx Chronic Respiratory Disease: No Hx Diabetes: No Hx Cardiac Disease: Yes Hx Renal Disease: No Hx Cirrhosis: No Hx Alcoholism: No Hx HIV/AIDS: No Hx Splenectomy or Spleen Trauma: No Other PMH: HTN, MIx1, angiogram,Pacer, cardiac cath, hernia repair, bladder complications w/ qid cath, fx uti's, atrial fibrillation, neuropathy, 'mild' diabetes - Social History Smoking Status: Never smoked Constitutional: Initial Vital Signs Heart Rate 70 11/25/17 20:35 Respiratory Rate 16 11/25/17 20:35 Blood Pressure 151/78 H 11/25/17 20:35 O2 Sat (%) 95 11/25/17 20:35 O2 Delivery Mode Room Air O2 (L/minute) 37.1 Allergies/Adverse Reactions: CHICKEN FEATHERS Allergy (Mild, Uncoded 11/25/17 20:46) TESTED POSITIVE DUST Allergy (Mild, Uncoded 11/25/17 20:46) TESTED POSITIVE Home Medications: Medication Instructions Recorded Furosemide [Lasix 20 MG (*)] 10 mg PO DAILY 12/09/13 Gabapentin [Neurontin 300 MG (*)] 600 mg PO BID 02/27/17 metFORMIN HCL [Metformin HCl] 500 mg PO DAILY 02/27/17 Metoprolol Tartrate 50 mg PO BID 06/28/17 Warfarin Sodium [Coumadin 3MG (*)] 4.5 mg PO TU@89911/25/17 Warfarin Sodium [Warfarin Sodium] 3 mg PO SUMOWETHFRSA@89911/25/17 Medical Decision Making - Data Points Laboratory Results: Laboratory Results 11/25/17 20:45 11/25/17 20:45 Microbiology Results: MICROBIOLOGY 11/25/17 21:40 Urine,Clean Catch Urine Culture - Preliminary Medications Given: Atorvastatin Calcium (Lipitor) 20 mg PO DAILY [facility] Stop: 05/25/18 11:44 Last Admin: 11/26/17 15:39 Dose: Not Given Furosemide (Lasix) 10 mg PO DAILY [facility] Stop: 05/25/18 08:59 Last Admin: 11/26/17 08:24 Dose: 10 mg Gabapentin (Neurontin) 600 mg PO BID [facility] Stop: 05/25/18 08:59 Last Admin: 11/26/17 08:23 Dose: 600 mg Metformin HCl (Glucophage) 500 mg PO DAILY [facility] Stop: 05/25/18 08:59 Last Admin: 11/26/17 08:23 Dose: 500 mg Metoprolol Tartrate (Lopressor) 50 mg PO BID [facility] Stop: 05/25/18 08:59 Last Admin: 11/26/17 08:24 Dose: 50 mg Senna/Docusate Sodium (Senokot-S) 1 - 2 tab PO BID [facility] PRN Reason: Protocol Stop: 05/25/18 08:59 Last Admin: 11/26/17 08:24 Dose: 2 tab Warfarin Sodium (Coumadin) 3 mg PO SUMOWETHFRSA@899 [facility] Stop: 05/25/18 08:59 Last Admin: 11/26/17 08:24 Dose: 3 mg Discontinued Medications Furosemide (Lasix Injection) 20 mg IVP ONCE ONE Stop: 11/26/17 12:41 Last Admin: 11/26/17 13:02 Dose: 20 mg Furosemide (Lasix Injection) 20 mg IVP ONCE ONE Stop: 11/26/17 15:01 Last Admin: 11/26/17 15:31 Dose: 20 mg Sodium Chloride (Ns) 500 mls @ 1,000 mls/hr IV EDNOW ONE PRN Reason: Protocol Stop: 11/25/17 21:10 Last Admin: 11/25/17 20:45 Dose: 500 mls Ceftriaxone Sodium/Dextrose (Rocephin 1 Gm (Premix)) 50 mls @ 100 mls/hr IV EDNOW ONE PRN Reason: Protocol Stop: 11/25/17 22:37 Last Admin: 11/25/17 22:17 Dose: 50 mls Perflutren Lipid Microsphere (Definity) 1.1 mg IV ONCE ONE Stop: 11/26/17 10:46 Last Admin: 11/26/17 12:07 Dose: Not Given Point of Care Test Results: Chemistry 11/25/17 20:49 POC Troponin I 0.01 ng/mL ng/mL (0.00-0.08) Departure - Departure Disposition: [facility] Inpatient Acute Clinical Impression: TIA (transient ischemic attack) UTI (urinary tract infection) Qualifiers: Urinary tract infection type: acute cystitis Hematuria presence: with hematuria Qualified Code(s): N30.01 - Acute cystitis with hematuria Condition: Fair
[2017-11-25] MEDS ORDERED: NS 500 ML IV ONE (20:41)
[2017-11-25 20:50] LABS: PLATELET COUNT 201 10^3/uL (150-400)
[2017-11-25 20:59] LABS: INR 2.24 (0.83-1.16); PROTIME(PATIENT) 24.8 SEC (12.0-15.0)
--- NOTE | 2017-11-25 22:35 | CPEKG ---
Test Reason : OPEN Blood Pressure : / mmHG Vent. Rate : 075 BPM Atrial Rate : 000 BPM P-R Int : 050 ms QRS Dur : 159 ms QT Int : 434 ms P-R-T Axes : 000 -89 092 degrees QTc Int : 485 ms Ventricular-paced complexes Confirmed by Last Gracia ([id number]) on 11/25/2017 10:34:24 PM Referred By: Confirmed By:Last Garcia
[2017-11-25] MEDS ORDERED: LABETALOL HCL 5 MG/ML 20 ML MDV IVP PRN (23:56)
[2017-11-26] MEDS ORDERED: ACETAMINOPHEN 650 MG SUPP PR PRN
[2017-11-26] MEDS ORDERED: ACETAMINOPHEN 325 MG TAB PO PRN
[2017-11-26] MEDS ORDERED: ONDANSETRON 4 MG/2 ML VIAL IVP PRN
[2017-11-26] MEDS ORDERED: POLYETHYLENE GLYCOL 3350 17 GM PKT PO PRN (01:49)
[2017-11-26] MEDS ORDERED: LACTULOSE 20 GM/30 ML UDCUP PO PRN (01:49)
[2017-11-26] MEDS ORDERED: MAGNESIUM HYDROXIDE 30 ML UDCUP PO PRN (01:49)
[2017-11-26] MEDS ORDERED: BISACODYL 10 MG SUPP PR PRN (01:49)
--- NOTE | 2017-11-26 02:50 | GHP ---
DATE OF ADMISSION: 11/25/2017 PRIMARY CARE PHYSICIAN: Listed previously Suzanna Harvey. SOURCE: Patient is able to provide some of the history. Does have a history of dementia and his sig nificant other has left for the evening. EMR was reviewed and case discussed with accepting hospital ist. CHIEF COMPLAINT: Aphasia and facial droop. HISTORY OF PRESENT ILLNESS: This is a pleasant 82-year-old gentleman with past medical history signi ficant for atrial fibrillation, sick sinus syndrome status post pacer on chronic anticoagulation with Coumadin, chronic ataxia, diastolic CHF with chronic lower extremity edema, HTN, DM2 with neuropathy , history of CAD and [place] x1, urinary retention with frequent UTIs, who [facility] via EMS following onset of aphasia and apparent left facial drooping. Patient's significant ot her called 911. EMS noted patient to have a left lower facial droop and some word-finding difficulti es and slow response time. They attempted to check his blood glucose, but had some technical difficu lties with the machine. They gave the patient a tab of glucose. The patient at no point complained of chest pain, shortness of breath, or acute numbness, tingling. He does have chronic neuropathy mos tly in his hands greater than his feet at this time. He denies any focal deficits. The patient's sy mptoms did resolve after 20-30 minutes of onset. The patient was transported approximately 40 minute s from the [facility] via EMS for ED evaluation. At time of my interview, patient is seen on the [facility] floor. He is complaining of shivering and feeling cold. He does not believe he has had any feve rs. He reports that he has a small area of redness that has been improving with improvement in his l ower extremity edema. He does note an abrasion on his right thigh. He does not believe that he has been scratching, although the rash is in the shape of fingernails. He denies any cough, shortness of breath, rhinorrhea. No sore throat. He reports constipation. No diarrhea. No abdominal pain. He does report history of persistent urinary retention for which he does self cath at home. Per chart, the patient has had some difficulties with sterile technique and self caths, increasing his number o f UTIs. REVIEW OF SYSTEMS: Negative except as noted above. NEURO: Patient does report he has developed a l ittle bit of a diffuse mild headache. Denies any changes in vision, persistent cnaa-vs-fawq type pat tern, numbness, tingling reported currently in his hands, more so than his feet. 10-point review of systems negative except as noted above. ALLERGIES: To chicken feathers and dust. No known drug allergies. HOME MEDICATIONS: As per EMR, metformin, Lasix, gabapentin, Coumadin, metoprolol. Metformin 500 mg p.o. daily, Lasix 10 mg p.o. daily, metoprolol tartrate 50 mg p.o. twice daily, and Coumadin 3 mg p.o. Friday, Friday, Friday, , Friday, Friday and 4.5 mg on Friday. 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 Remote history of skin cancer, diastolic CHF. PAST SURGICAL HISTORY: Pacer, cardiac cath, hernia repair, ablation and ARTHUR cardioversion. FAMILY HISTORY: Negative for CAD or CVA per the patient. SOCIAL HISTORY: Patient lives with his significant other and they live independently at [facility]. He does not smoke, drink, or utilize any drugs per his report. CODE STATUS: At this time will be full. The patient is unsure if he has any advance directives, but he would want his partner to act as proxy if needed if he does not have the advanced directives in [facility] already. PHYSICAL EXAMINATION: VITAL SIGNS: Upon arrival to the ED, blood pressure 151/78, heart rate 70, re spiratory rate 16, O2 saturation 95% with a temperature 37.1 on room air. Vitals currently available : Blood pressure 146/91, heart rate 71, respiratory rate 16, O2 saturation 91% on room air, with tem perature 36.9. GENERAL: No acute distress. Pleasant elderly gentleman is lying quietly in bed asle ep. Does appear fatigued. He has some difficulty keeping his eyes open, but in no acute distress. Pleasant and attempts to be cooperative. HEAD: Normocephalic, atraumatic. EYES: Extraocular muscl es are grossly intact. Pupils equal, round, react to light bilaterally and symmetric. No scleral ic terus, conjunctival injection. The patient does have a little bit of lid lag, but cranial nerve test ing is intact when activated. The patient is lying with his head kind of leaning toward the left and again the lid lag improves when patient is more alert and awake. No lower facial drooping. No flat tening of nasolabial fold. ENT: Mucous membranes appear slightly dry. No nasal discharge. Dentiti on in fair condition. NECK: Supple. Trachea midline. CV: Patient with regular rate and rhythm. Occasional irregular beat. Left-sided pacer noted. No murmurs, rubs, or gallops appreciated. RESPI RATORY: Decreased inspiratory effort. No wheezes, rales, or rhonchi appreciated. Diminished bibasi larly. ABDOMEN: Soft but full. Positive bowel sounds. No rebound, guarding, or masses appreciated . No tenderness to palpation. : No suprapubic tenderness to palpation. No increased bladder dis tention. No Goodwin catheter in place. EXTREMITIES: The patient with some excoriations on the anteri or right thigh. He also has 2+ pitting edema bilateral lower legs from mid lower leg down to his fee t. He has 1+ pedal pulses bilaterally and symmetric, slightly diminished due to pitting edema. On t he left distal lower leg, there is an area of some erythema, but there is no induration or fluctuance . No tenderness. Blanchable. NEURO: While asleep left lid lag as noted above. The patient's NIH score is 0. He does have some decreased sensitivity to his bilateral feet, but strength overall gene ralized weakness and deconditioning. Strength is 4 out of 5 in upper and lower extremities bilateral ly and symmetric. PSYCH: Patient is awake, alert, and oriented to person and place. Date was not s pecifically asked at this time. The patient's affect is slightly flat, but he is pleasant and lima ative otherwise. The patient is not agitated. Some memory deficits. The patient is quite fatigued but cooperative. LABORATORY STUDIES: WBC 11.74, H and H are 15.1, 43.4, MCV of 90.6, platelet count is 201, neutrophi l percent 86.5, no bands. PT is 24.8, INR is 2.24, PTT is 38.8. Sodium 139, potassium 4.6, chloride is 101, CO2 29, anion gap of 1, BUN 25, creatinine 0.7. GFR greater than 60, glucose 142, calcium 9 .7, magnesium 2.1, total bilirubin 0.9, ALT is 24, AST 23, alk phos is 101. Troponin point of care 0 .01. BTNP is 2110. Albumin 4.2, protein is 7.0. UA specific gravity 1.012, with pH of 5.0, 2+ bloo d, 1+ leukocyte esterase, 3-5 RBCs, 15-25 WBCs, trace epithelials and mucus. Negative glucose. Nega tive otherwise. Chest x-ray image report reviewed myself. Minimal bibasilar atelectasis. CHF without pulmonary portia a. Cardiomegaly. Pacer in place. Left hemidiaphragm elevation. CT head: Elderly brain with atrophy, probable white matter, small-vessel disease. Nothing acute jonatan ntified. EKG reviewed myself showing atrial fibrillation, V paced complexes in the 70s. ASSESSMENT AND PLAN: Pleasant 82-year-old gentleman with a history of hypertension, diabetes mellitu s type 2, atrial fibrillation and sick sinus syndrome status post pacer on chronic Coumadin, coronary artery disease, urinary retention requiring catheterization, dementia, and diastolic congestive hear t failure, presents to the emergency room following an episode of aphasia and left lower facial droop . 1. Transient ischemic attack with resolved symptoms of left lower facial drooping and aphasia. The patient's NIH score upon arrival to the emergency department was 0. He does have a little bit of lid lag and drooping, but he is also asleep and leaning towards left side which does resolve once patien t is awoken entirely and with cranial nerve testing. He does have some diminished sensation related to neuropathy in his hands and feet. Patient reports this is baseline. CT head was negative. He is not a candidate for MRI in the morning due to his history of pacer. Will plan to obtain carotid dup ingris as well as echocardiogram for further workup. PT, OT and speech therapy will be consulted. The patient passes swallow eval, has been advanced to an ADA diet. Blood sugars are acceptable. No evid ence of focal findings at this time. Continue with neuro checks per protocol. The patient is not a candidate for tPA as his symptoms resolved rapidly. In addition, he is chronically on Coumadin and t herapeutic. 2. Pyuria with history urinary retention, frequent urinary tract infections. The patient has a urin e culture pending. He has been started on Rocephin in the emergency department which we will plan to continue. 3. Headache, acute onset since arrival to the emergency department. Mild without visual changes. T ylenol p.r.n. Monitor closely. CT was negative as noted above. 4. Constipation. Bowel program will be ordered. 5. Chronic medical issues: a. Diastolic congestive heart failure. Patient is reported to be at his baseline with persistent lo wer extremity edema he reports is improved. Will plan to continue his Lasix. Consider increasing th is dose slightly. Low-salt diet. No IV fluids. b. History of atrial fibrillation with sick sinus syndrome status post pacer. Continue metoprolol a nd Coumadin for anticoagulation. c. Chronic lower extremity edema, likely related to congestive heart failure as well as venous insuf ficiency. No evidence of cellulitis at this time. There is some distal lower extremity redness, but it is blanchable, has improved. There is no induration or fluctuance appreciated. Likely related t o patient's edema. Will monitor this closely. d. Benign essential hypertension. Blood pressures at this time are acceptable in this elderly gentl eman. Continue with metoprolol and Lasix in the morning as noted above. e. Diabetes type 2. Continue patient's metformin. ADA diet has been ordered. f. Coronary artery disease. The patient is on beta yoni and diuretic. He is not on aspirin as h e is already on Coumadin. Continue metoprolol and Lasix. The patient is no longer on an Jimy, ARB or statin. g. History of urinary retention. Straight cath four times daily and p.r.n. Patient did void 200 mL since arrival to the floor. Continue his Lasix as noted above and straight cath urine. h. Constipation. Bowel program has been ordered. i. Dementia. Patient with some memory deficits during the interview, but is able to contribute a fa ir amount to the history. He is not agitated at this time. Bed alarm will be ordered. j. History of chronic kidney disease noted on chart. Patient's creatinine appears to be at baseline and within normal limits. Continue monitoring basic metabolic panel and continue diuresis. 6. Fluid, electrolyte, nutrition. Saline lock IV. Electrolytes adequate at this time. Did not req uire replacement. ADA diet after patient has passed a swallow study. Low-salt. Fluid restriction. 7. Code status. Full at this time. Will need to further clarify with patient's designated proxy, h is partner and significant other with whom he lives. Will defer this to day team and will still requ chichi an order. 8. Disposition. Patient admitted to observation status on the neuro meds floor for close neurologic monitoring overnight. Anticipate less than 2 midnight stay pending results of patient's laboratorie s and studies as noted above. /[id number]/MODL
[2017-11-26 05:02] LABS: PLATELET COUNT 163 10^3/uL (150-400)
[2017-11-26 06:22] LABS: INR 2.16 (0.83-1.16); PROTIME(PATIENT) 24.1 SEC (12.0-15.0)
[2017-11-26] MEDS: metFORMIN HCL 500 MG TAB PO SCH (08:23)
[2017-11-26] MEDS: GABAPENTIN 300 MG CAP PO SCH ×2 (08:23→23:51)
[2017-11-26] MEDS: SENNOSIDES/DOCUSATE SODIUM TAB PO SCH ×2 (08:24→23:52)
[2017-11-26] MEDS: METOPROLOL TARTRATE 50 MG TAB PO SCH ×2 (08:24→23:51)
[2017-11-26] MEDS: FUROSEMIDE 20 MG TAB PO SCH (08:24)
[2017-11-26] MEDS: WARFARIN SODIUM 3 MG TAB PO SCH (08:24)
--- NOTE | 2017-11-26 10:03 | ASMTCMCOM ---
CM Note CM Note Notes: Pt is a 82 y/o man admitted for aphasia and facial droop. Pt has a hx of dementia, afib, sick sinus syndrome status post pacer on chronic anticoagulation with coumadin, chronic ataxia, diastolic CHF w/ chronic lower extremity edema, HTN, DM2 w/ neuropathy, hx of CAD and [place] x1 and urinary retention with frequent UTIs. [place] and therapies have been ordered and awaiting recommendations. Needs are TBD at this time. CM to follow. Plan: TBD Date Signed: 11/26/2017 10:01 AM Electronically Signed By:KATJA Hernandez
[2017-11-26] MEDS ORDERED: PERFLUTREN LIPID MICROSPHERES 1.1 MG/ML VIAL IV ONE (10:45)
--- NOTE | 2017-11-26 11:41 | HOSPPROG ---
Hospitalist Progress Note Assessment/Plan: #Acute Encephalopathy -Etiology is likely multifactorial #Facial Droop, Aphasia, and concern for possible TIA -initial sx's reported on admission but then cleared shortly thereafter -no issues with aphasia a this time but he is acutely confused -MRI is not an option given his hx of PPM -CT head and carotid doppler are unremarkable -Lipid panel c/w HLD, will start a statin -DM mgmt at goal -BP mgmt -already on Coumadin with adequate INR #Afib with Chronic AC #Hx of Diastolic CHF with increased work of breathing -still on RA but reports not feeling well -CXR initially with mild pulm edema -will obtain another now -I suspect that he needs increased Lasix -No e/o pneumonia noted on CXR #HTN, well controlled #UTI: cont Rocephin, Await cultures #Hx of urinary retention #DM -cont insulin regimen -no hypoglycemia note Plan: The pt's encephalopathy etiology is unclear. He is altered and currently not the best historian. I do not suspect that he is having an ischemic neurological event. Although his Neuro exam is difficult to perform, it is symmetrical and CN are intact, coordination is intact Suspect encephalopathy may be metabolic. Will obtain a CXR, likely will need diuretic Check an ABG check bladder scan, insert Goodwin if needed cont abx cont coumadin change to inpatient Subjective: no cp. feels some sob. confused. Objective: Vital Signs Temp Pulse Resp BP Pulse Ox 37.0 C 73 14 126/71 H 92 11/26/17 07:43 11/26/17 08:24 11/26/17 07:43 11/26/17 08:24 11/26/17 07:43 Laboratory Results 11/26/17 04:50 11/26/17 04:50 11/25/17 11/26/17 11/27/17 05:59 05:59 05:59 Intake Total 450 Output Total 1080 150 Balance -630 -150 PT 24.1 SEC (12.0-15.0) H 11/26/17 04:50 INR 2.16 (0.83-1.16) H 11/26/17 04:50 - Physical Exam Constitutional: no apparent distress Eyes: PERRL Ears, Nose, Mouth, Throat: moist mucous membranes Cardiovascular: regular rate and rhythym, edema Respiratory: no respiratory distress, other (increased work of breathing), No clear to auscultation Gastrointestinal: normoactive bowel sounds Skin: warm Neurologic: CN II-XII Intact, No AAOx3 Psychiatric: encephalopathic Lymph, Heme, Immunologic: No petechiae ICD10 Worksheet Patient Problems: Problems Problem Status Onset TIA (transient ischemic attack) Acute UTI (urinary tract infection) Acute Altered mental status Acute Chest pain Acute
[2017-11-26] MEDS ORDERED: FUROSEMIDE 20 MG/2 ML VIAL IVP ONE ×2 (12:40→15:00)
--- NOTE | 2017-11-26 14:01 | ASMTCMCOM ---
CM Note CM Note Notes: CM left a msg for pts Komal GAVIN and requested a call back. PT is recommending SNF. CM reviewed pts chart and pt discharged to [facility] during his admission at [facility] in June. Referral made to [facility]. CM completed non triggering pasrr. CM to follow. Plan: Possibly [facility]/SNF Date Signed: 11/26/2017 02:00 PM Electronically Signed By:KATJA Hernandez
[2017-11-26] MEDS: ATORVASTATIN CALCIUM 20 MG TAB PO SCH (15:39)
--- NOTE | 2017-11-26 15:50 | ECHO ---
[email or web address] [address] [address] Main: [phone] Fax: Transthoracic Echocardiogram Name: RAMON CASTILLO MR#: [id number] Study Date: 11/26/2017 Study Time: 10:17 AM Date of : 1935 Age: 82 year(s) Height: 182.9 cm (72 in.) Weight: 90.72 kg (200 lb.) BSA: 2.13 m2 Gender: Male Examination: Echo with Definity Indication: Ischemic Stroke Image Quality: Technically Difficult Contrast: 0.165 mg I.V. dose of Definity was administered to improve endocardial border definition. Requested by: Esthela Bowman BP: 126 mmHg/71 mmHg Heart Rate: Rhythm: Indication: Ischemic Stroke Procedure Staff Beauty Therapist: Payton Warner RDCS Reading Physician: Kirk Taylor MD Requesting Provider: Conclusions: Normal size left ventricle. Borderline concentric LV hypertrophy. Technically difficult study. LVEF appears to be grossly normal with dyskinetic septal motion due to paced rhythm. Mild mitral valve regurgitation is present. Aortic sclerosis is present. Mild aortic valve regurgitation is present. Mild to moderate tricuspid valve regurgitation. Right ventricular systolic pressure measures 41mmHg. Trivial pericardial effusion. Measurements: Chambers Valvular Assessment AV/MV Valvular Assessment TV/PV Normal Normal Normal Name Value Range Name Value Range Name Value Range Ao Flower (2D): 3.3 cm (1.4 cm-2.6 AV Vmax: 1.60 m/s (1 m/s-1.7 TR Vmax: 2.99 mm/s ( - ) cm) m/s) TR PGmax: 36 mmHg ( - ) IVSd (2D): 1.1 cm (0.6 cm-1.1 AV maxP mmHg ( - ) syst. PAP: 41 mmHg ( - ) cm) AV meanP mmHg ( - ) PV Vmax: 0.87 m/s (0.6 m/s-0.9 LVDd (2D): 5.5 cm (4.2 cm-5.9 MOON (VTI): 1.2 cm ( - ) m/s) cm) MV E Vmax: 0.82 m/s ( - ) PV PGmax: 3 mmHg ( - ) LVDs (2D): 3.5 cm (2.1 cm-4 MV PHT: 0.044 s ( - ) cm) MVA (PHT): 5.0 s ( - ) LVPWd (2D): 1.1 cm (0.6 cm-1 cm) LVOTd 2.0 cm 2.0 cm mm RVDd(2D): 4.4 cm (1.9 cm-3.8 cmmm) Patient: RAMON CASTILLO Study Date: 11/26/2017 Page 1 of 2 10:17 AM Continued Measurements: Chambers Valvular Assessment AV/MV Valvular Assessment TV/PV Name Value Name Value Name Value LADs: 4.5 cm MV DecTime: 151 m/s CVP (est.): 5 mmHg LADs Lon.2 cm MV E' Septal: 0.08 m/s LA Area: 31.0 cm2 MV E/E' Septal: 10.10 RA Area: 37.4 cm2 MV E/E' Lateral: 7.80 Additional Vessels Name Value Ao Ascendin.5 cm Inferior Vena Cava: 2.4 cm Findings: Left Ventricle: Normal size left ventricle. Borderline concentric LV hypertrophy. There is paradoxic septal motion suggestive of bundle branch block, paced cardiac rhythm, or prior cardiac surgery. EF difficult to assess due to dyssynchrony. Definity used to assess left ventricular function. Unable to assess diastolic function due to arrhythmia. Right Ventricle: Dilated right ventricle with reduced function. Left Atrium: Left atrial enlargement. There was a negative bubble study performed by ARTHUR on 06/29/13. Right Atrium: The right atrium is severely dilated. Mitral Valve: The mitral valve is normal in appearance and function. Mild mitral valve regurgitation is present. No mitral stenosis is present. Aortic Valve: The aortic valve is tri-leaflet. Aortic sclerosis is present. Mild aortic valve regurgitation is present. No aortic valve stenosis is present. Tricuspid Valve: The tricuspid valve is normal in appearance and function. Mild to moderate tricuspid valve regurgitation. The pulmonary artery pressure is mildly increased. Right ventricular systolic pressure measures 41mmHg. Pulmonic Valve: The pulmonic valve is normal in appearance and function. Aorta: The aorta is normal. Normal size aortic root measuring 3.3 cm. Normal size ascending aorta measuring 3.5 cm. IVC: The IVC is dilated. Pericardium: Trivial pericardial effusion. No pleural effusion. (No Signature Object) Patient: RAMON CASTILLO Study Date: 11/26/2017 Page 2 of 2 10:17 AM [id number]
[2017-11-26] MEDS ORDERED: NS W/ 20 KCl/L 1,000 ML IV SCH (17:30)
[2017-11-27 05:30] LABS: INR 1.51 (0.83-1.16); PROTIME(PATIENT) 18.4 SEC (12.0-15.0)
--- NOTE | 2017-11-27 08:03 | PDMN ---
Medical Necessity Medical necessity: Change to IP, as of 11/26/17, per MD & MCG M-190; los >2 mn for ongoing management of acute CHF exacerbation w/worsening hypoxemia, tachypnea (RR 35), acute encephalopathy, as well as UTI & worsening facial droop w/aphasia, r/o stroke; requiring further workup/monitoring, Neuro consult , IV Lasix, IV abx, respiratory supportive care & therapies; comorbid advanced age, AFIB on AC, HTN & diabetes
--- NOTE | 2017-11-27 08:42 | GCON ---
NEUROLOGIC CONSULTATION. REFERRING PHYSICIAN: Phillip Chakraborty HISTORY: The patient is an 82-year-old gentleman who I am asked to see in neurologic consultation re garding recurrent episode of facial droop. I had seen him several years ago in the office with perip heral neuropathy and some mild cognitive problems. He also saw Dr. Puga in the office in 2017 for th e same related issues, but particularly looking for cognitive changes and found suspicion for mild co gnitive impairment at least. 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 He was referred to [facility] for cognitive ass essment, and they also felt he had mild cognitive impairment or early dementia. It was thought to be either related to early Alzheimer's or perhaps vascular disease. He has had a relatively stable cou rse since that time, although he is now in the hospital because of acute changes that were related to problems with some facial droop on the left and word-finding difficulties and slow response time. H is had contacted the emergency department via EMS, and he subsequently has been evaluated but raya d NIH Stroke Scale of 0 when he was in the ER originally and after going to the floor. Yesterday, he had some increasing facial droop and repeat head CT was obtained that did show anything acute, and I was asked to get involved. The patient says that he was feeling a little bit slow cognitively, but definitely feels better today . He has had no specific complaint of focal numbness or weakness, but he has the numbness in his fee t. He is denying any prominent pain at this point. PAST MEDICAL HISTORY: Notable for ataxia, peripheral neuropathy for many years, atrial fibrillation with sick sinus syndrome and a pacemaker and treated with anticoagulation. Hypertension, diabetes, c oronary disease with myocardial infarction on 1 occasion. He has had urinary tract infections on a r ecurrent basis. He has had an ablation and ARTHUR with cardioversion previously, pacemaker, cardiac cat heterization. SOCIAL HISTORY: He lives with his significant other. He does not smoke or drink or have any other d rug use. 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 He has been retired for many years as well. REVIEW OF SYSTEMS: A 10-point review of systems completed, unremarkable except for that noted above. ALLERGIES: No drug allergies. MEDICATIONS: Currently on ceftriaxone, Lasix, gabapentin, labetalol, metformin, Coumadin. PHYSICAL EXAM: VITAL SIGNS: Blood pressure is 116/73, pulse 82, respirations 15, temperature 36. GE NERAL: Well-developed, no acute distress. NECK: Supple with no bruits or masses. CARDIAC: Regula r rate and rhythm. No murmur. NEUROLOGIC: He has an NIH stroke scale of 0. He is awake, alert, an d oriented and able to follow commands, although he could not remember the precise city. Pupils 3 mm and reactive. Extraocular movements are intact. Normal facial sensation and strength and movement. Palate elevates symmetrically. Tongue protrudes midline. Motor exam: Normal muscle, bulk, and to ne with mild generalized weakness in the 4/5 range proximally. Sensation is decreased distally in th e lower extremities. Reflexes are absent. Mild postural and action tremor on [id number] is pres ent. He answers questions slowly and may take several seconds to answer some questions and usually g ets them correct, but his speed of processing is diminished and his recent memory is reduced as well. He has INR that has been therapeutic at 2 or greater. This morning is 1.5. Head CT does not show an y evidence of acute pathology. Carotid ultrasound does not show significant stenoses. IMPRESSION: Total unit time of 55 minutes. The patient has experienced episodes consistent with tra nsient ischemic attack likely due to some small-vessel disease versus differential consideration of m ild worsening of some neurologic deficits in the setting of urinary tract infection, which has now be en identified and is being treated. The slowness of processing is consistent with an encephalopathy on top of a baseline cognitive impairment, which is probably at the level of a mild dementia. Jc morales he is being followed at the [facility] for this. Because he is doing better today w ith the treatment for infection, and we do not find any large vessel stenoses, and he is already full y anticoagulated, I do not think additional diagnostic studies are needed. There is not more medical therapy to pursue at this point. We will monitor his clinical course with anticipation of gradual i mprovement back to his baseline. He is certainly free to follow up with us in the office if he choos es or at the [facility] Neurology Department if that is their preference. /[id number]/MODL
--- NOTE | 2017-11-27 10:00 | ASMTCMCOM ---
CM Note CM Note Notes: Met with patient and his ROMAINE Sauceda. They agree with discharge to [facility]. In the meantime, they are in process of moving patient to [facility] living. Case Management will follow. Date Signed: 11/27/2017 09:59 AM Electronically Signed By:Heather Gardner RN
[2017-11-27] MEDS ORDERED: WARFARIN SODIUM 3 MG TAB PO ONE (10:15)
[2017-11-27] MEDS: ATORVASTATIN CALCIUM 20 MG TAB PO SCH (10:23)
[2017-11-27] MEDS: GABAPENTIN 300 MG CAP PO SCH ×2 (10:30→22:53)
[2017-11-27] MEDS: metFORMIN HCL 500 MG TAB PO SCH (10:31)
[2017-11-27] MEDS: METOPROLOL TARTRATE 50 MG TAB PO SCH ×2 (10:32→22:53)
[2017-11-27] MEDS: SENNOSIDES/DOCUSATE SODIUM TAB PO SCH ×3 (10:33→23:00)
[2017-11-27] MEDS: FUROSEMIDE 20 MG TAB PO SCH (10:39)
[2017-11-27] MEDS: WARFARIN SODIUM 3 MG TAB PO SCH (10:47)
--- NOTE | 2017-11-27 16:21 | HOSPPROG ---
Hospitalist Progress Note Assessment/Plan: 82 yo M facial droop Acute Encephalopathy Etiology is likely multifactorial today- alert w some memory impairment Facial Droop, Aphasia, and concern for possible TIA initial sx's reported on admission but then cleared shortly thereafter no issues with aphasia a MRI is not an option given his hx of PPM CT head and carotid doppler are unremarkable Lipid panel c/w HLD, will start a statin DM mgmt at goal BP mgmt already on Coumadin with adequate INR neurology recommends no further imaging Afib with Chronic AC Hx of Diastolic CHF with increased work of breathing still on RA but reports not feeling well appears euvolemic HTN, well controlled UTI: cont Rocephin, Await cultures Hx of urinary retention w laws DM cont insulin regimen no hypoglycemia note dispo: PT/OT rec snf Subjective: case d/w dr robles Objective: Vital Signs Temp Pulse Resp BP Pulse Ox 36.3 C 71 16 112/72 97 11/27/17 16:00 11/27/17 16:00 11/27/17 16:00 11/27/17 16:00 11/27/17 16:00 11/26/17 11/27/17 11/28/17 05:59 05:59 05:59 Intake Total 1000 500 Output Total 3550 650 Balance -2550 -150 PT 18.4 SEC (12.0-15.0) H 11/27/17 05:14 INR 1.51 (0.83-1.16) H 11/27/17 05:14 - Physical Exam Constitutional: no apparent distress, appears nourished Eyes: PERRL, anicteric sclera Ears, Nose, Mouth, Throat: moist mucous membranes, hearing normal Cardiovascular: regular rate and rhythym, no murmur, rub, or gallop Respiratory: no respiratory distress, no rales or rhonchi Gastrointestinal: normoactive bowel sounds, soft, non-tender abdomen Genitourinary: No laws in urethra Skin: warm, normal color Musculoskeletal: full muscle strength, no muscle tenderness Neurologic: No AAOx3 ICD10 Worksheet Patient Problems: Problems Problem Status Onset TIA (transient ischemic attack) Acute UTI (urinary tract infection) Acute Altered mental status Acute Chest pain Acute
[2017-11-28 05:12] LABS: INR 1.48 (0.83-1.16); PROTIME(PATIENT) 18.1 SEC (12.0-15.0)
--- NOTE | 2017-11-28 07:44 | NEUROPROG ---
Assessment: Total unit time of 15 min. The patient is stable and ready for discharge from a neurologic standpoint. Either TIA was the mechanism or neurologic dysfunction related to urinary tract infection. Subjective: The patient reports that he is feeling back to his baseline essentially with no recurrence of the facial droop for slurred speech over the last 24 hr. He has baseline peripheral neuropathy as well as concerns about some mild cognitive impairment. Objective: Vital Signs Temp Pulse Resp BP Pulse Ox 36.6 C 60 16 126/75 H 97 11/27/17 23:58 11/27/17 23:58 11/27/17 23:58 11/27/17 23:58 11/27/17 23:58 Laboratory Results 11/28/17 04:43 11/27/17 11/28/17 11/29/17 05:59 05:59 05:59 Intake Total 1000 1040 Output Total 3550 1700 Balance -2550 -660 PT 18.1 SEC (12.0-15.0) H 11/28/17 04:43 INR 1.48 (0.83-1.16) H 11/28/17 04:43 He is alert and attentive and oriented. He is able to follow instructions. There is mild facial asymmetry with relative droop on the right but this is probably his baseline I do not see significant weakness when he moves his face. Allergies/Adverse Reactions: CHICKEN FEATHERS Allergy (Mild, Uncoded 11/25/17 20:46) TESTED POSITIVE DUST Allergy (Mild, Uncoded 11/25/17 20:46) TESTED POSITIVE
[2017-11-28] MEDS: GABAPENTIN 300 MG CAP PO SCH ×2 (09:34→21:14)
[2017-11-28] MEDS: METOPROLOL TARTRATE 50 MG TAB PO SCH ×2 (09:34→21:14)
[2017-11-28] MEDS: metFORMIN HCL 500 MG TAB PO SCH (09:34)
[2017-11-28] MEDS: FUROSEMIDE 20 MG TAB PO SCH (09:35)
[2017-11-28] MEDS: ATORVASTATIN CALCIUM 20 MG TAB PO SCH ×2 (09:35→09:44)
[2017-11-28] MEDS: SENNOSIDES/DOCUSATE SODIUM TAB PO SCH ×2 (09:36→21:14)
--- NOTE | 2017-11-28 15:06 | ASMTCMCOM ---
CM Note CM Note Notes: Plan remains d/c to [facility] tomorrow. Date Signed: 11/28/2017 03:02 PM Electronically Signed By:FATOU Chakraborty
[2017-11-28] MEDS ORDERED: WARFARIN SODIUM 3 MG TAB PO ONE (16:00)
--- NOTE | 2017-11-28 16:12 | HOSPPROG ---
Hospitalist Progress Note Assessment/Plan: 82 yo M facial droop Acute Encephalopathy Etiology is likely multifactorial today- alert w some memory impairment 11/28- continues to improved Facial Droop, Aphasia, and concern for possible TIA initial sx's reported on admission but then cleared shortly thereafter no issues with aphasia a MRI is not an option given his hx of PPM CT head and carotid doppler are unremarkable Lipid panel c/w HLD, will start a statin DM mgmt at goal BP mgmt already on Coumadin with adequate INR neurology recommends no further imaging Afib with Chronic AC Hx of Diastolic CHF with increased work of breathing still on RA but reports not feeling well appears euvolemic HTN, well controlled UTI: staph haemolyticus change to cefazolin Hx of urinary retention w laws laws removed 11/28 DM cont insulin regimen no hypoglycemia note dispo: PT/OT rec snf Subjective: droop resolved. labs stable. pt/ot rec snf Objective: Vital Signs Temp Pulse Resp BP Pulse Ox 36.4 C 75 16 120/76 93 11/28/17 15:40 11/28/17 15:40 11/28/17 15:40 11/28/17 15:40 11/28/17 15:40 Laboratory Results 11/28/17 04:43 11/27/17 11/28/17 11/29/17 05:59 05:59 05:59 Intake Total 1000 1040 Output Total 3550 1700 1025 Balance -2550 -660 -1025 PT 18.1 SEC (12.0-15.0) H 11/28/17 04:43 INR 1.48 (0.83-1.16) H 11/28/17 04:43 - Physical Exam Constitutional: no apparent distress, appears nourished Eyes: PERRL, anicteric sclera Ears, Nose, Mouth, Throat: moist mucous membranes, hearing normal Cardiovascular: regular rate and rhythym, no murmur, rub, or gallop Respiratory: no respiratory distress, no rales or rhonchi Gastrointestinal: normoactive bowel sounds, no palpable masses Genitourinary: no bladder fullness, No laws in urethra Skin: warm Musculoskeletal: full muscle strength ICD10 Worksheet Patient Problems: Problems Problem Status Onset TIA (transient ischemic attack) Acute UTI (urinary tract infection) Acute Altered mental status Acute Chest pain Acute
[2017-11-29 06:38] LABS: INR 1.57 (0.83-1.16); PROTIME(PATIENT) 18.9 SEC (12.0-15.0)
[2017-11-29 07:41] VITALS: BP 134/80
[2017-11-29] MEDS: GABAPENTIN 300 MG CAP PO SCH (08:27)
[2017-11-29] MEDS: METOPROLOL TARTRATE 50 MG TAB PO SCH (08:27)
[2017-11-29] MEDS: metFORMIN HCL 500 MG TAB PO SCH (08:27)
[2017-11-29] MEDS: FUROSEMIDE 20 MG TAB PO SCH (08:27)
[2017-11-29] MEDS: SENNOSIDES/DOCUSATE SODIUM TAB PO SCH (08:28)
[2017-11-29] MEDS: ATORVASTATIN CALCIUM 20 MG TAB PO SCH (08:28)
--- NOTE | 2017-11-29 11:01 | HOSPPROG ---
Hospitalist Progress Note Assessment/Plan: 82 yo M facial droop Acute Encephalopathy Etiology is likely multifactorial today- alert w some memory impairment 11/28- continues to improved Facial Droop, Aphasia, and concern for possible TIA initial sx's reported on admission but then cleared shortly thereafter no issues with aphasia a MRI is not an option given his hx of PPM CT head and carotid doppler are unremarkable Lipid panel c/w HLD, will start a statin DM mgmt at goal BP mgmt already on Coumadin with adequate INR neurology recommends no further imaging Afib with Chronic AC Hx of Diastolic CHF with increased work of breathing still on RA but reports not feeling well appears euvolemic HTN, well controlled UTI: staph haemolyticus change to cefazolin keflex on dc; 5 add'l days therapy Hx of urinary retention w laws laws removed 11/28 DM cont insulin regimen no hypoglycemia note dispo: to snf > 30 minutes Subjective: amenable to dc to snf Objective: Vital Signs Temp Pulse Resp BP Pulse Ox 36.5 C 74 16 134/80 H 92 11/29/17 07:37 11/29/17 08:27 11/29/17 07:37 11/29/17 08:27 11/29/17 07:37 Laboratory Results 11/28/17 04:43 11/28/17 11/29/17 11/30/17 05:59 05:59 05:59 Intake Total 1040 100 780 Output Total 1700 1025 Balance -660 -925 780 PT 18.9 SEC (12.0-15.0) H 11/29/17 04:42 INR 1.57 (0.83-1.16) H 11/29/17 04:42 - Physical Exam Constitutional: no apparent distress, appears nourished Eyes: PERRL, anicteric sclera Ears, Nose, Mouth, Throat: moist mucous membranes, hearing normal Cardiovascular: regular rate and rhythym, no murmur, rub, or gallop Respiratory: no respiratory distress, no rales or rhonchi Gastrointestinal: normoactive bowel sounds, soft, non-tender abdomen Genitourinary: no bladder fullness, No laws in urethra Skin: warm, normal color Musculoskeletal: No full muscle strength ICD10 Worksheet Patient Problems: Problems Problem Status Onset TIA (transient ischemic attack) Acute UTI (urinary tract infection) Acute Altered mental status Acute Chest pain Acute
--- NOTE | 2017-11-29 11:03 | PDIAF ---
- Diagnosis Diagnosis: weakness - Medication Management Discharge Medications: Medications to Continue on Transfer Furosemide [Lasix 20 MG (*)] 10 mg PO DAILY 12/09/13 [Last Taken 11/25/17] Gabapentin [Neurontin 300 MG (*)] 600 mg PO BID 02/27/17 [Last Taken 11/25/17 08 :00] metFORMIN HCL [Metformin HCl] 500 mg PO DAILY 02/27/17 [Last Taken 11/25/17] Metoprolol Tartrate 50 mg PO BID 06/28/17 [Last Taken 06/28/17 08:00] Warfarin Sodium 3 mg PO SUMOWETHFRSA@89911/25/17 [Last Taken 11/23/17] Warfarin Sodium [Coumadin 3MG (*)] 4.5 mg PO TU@89911/25/17 [Last Taken ] Atorvastatin Calcium [Lipitor 20 mg (*)] 20 mg PO DAILY tab 11/29/17 [Last Taken Unknown] Cephalexin [Keflex (*)] 500 mg PO Q6HRS cap 11/29/17 [Last Taken Unknown] Polyethylene Glycol 3350 [Miralax 17 gm (*)] 17 gm PO DAILY PRN pkt 11/29/17 [ Last Taken Unknown] Blood Bank Attendant Antibiotics: keflex as written through 12/04/17 Discharge Medications: Refer to the Discharge Home Medication list for PRN reason. - Orders Services needed: Registered Nurse, Certified Spine Supervisor, Physical Therapy, Occupational Therapy, Speech Language Pathologist - Follow Up Care Current Providers and Referrals: Patient,NotPresent [Unknown] - As per Instructions
--- NOTE | 2017-11-29 11:28 | GDS ---
DISCHARGE DIAGNOSES: 1. Diabetes. 2. Atrial fibrillation. 3. Pacemaker. 4. Anticoagulation. 5. Generalized weakness. 6. Facial droop with aphasia. 7. Urinary tract infection secondary to self-catheterization. 8. Urinary retention with intermittent self-catheterization. 9. Dementia. 10. Likely transient ischemic attack. CONSULT THIS ADMISSION: Neurology. Please see admission History and Physical by Dr. Esthela Bowman. The patient presented in the evening of the with a facial droop and aphasia. Initial head CT wa s negative for bleed showing only atrophy. A followup CT a couple days later similarly showed no baldemar dence of bleed. He had a stroke workup with a carotid Doppler showing no significant vascular diseas e with widely patent carotid articles. There is a minimal right carotid plaque with less than 20% st enosis. An echocardiogram that was unremarkable showing intact LVEF, moderately elevated pulmonary p ressures. Seen by Neurology, who felt that this was possibly a TIA, but it may have also been on enc ephalopathy secondary to a UTI, which was diagnosed and grew out Staph haemolyticus. Initially was t reated with ceftriaxone. This was transitioned to cefazolin. He needs to complete an additional 5 d ays of oral Keflex. The patient was unable to get an MRI given his history of pacemaker placement. Ultimately, the patie nt is on statin and warfarin. Further imaging is unlikely to really fundamentally warp changer. He was persistently weak, and he is discharged to [facility] for some rehabilitation. Notably, the patient was transitioning from living independently to going to [facility]. /[id number]/MODL
[2017-11-29] MEDS ORDERED: CEPHALEXIN 500 MG CAP PO SCH (12:00)
--- NOTE | 2017-11-29 12:34 | ASMTLACE ---
LACE Length of stay for Answers: 2 days current admission Comorbidities - select Answers: Coronary Artery Disease all that apply Diabetes (uncontrolled or controlled) Previous myocardial infarction Other Notes: HTN; AFib # of Emergency department Answers: 1-2 visits in the last 6 months Score: 8 Date Signed: 11/29/2017 12:33 PM Electronically Signed By:Bessy Stoll RN
--- NOTE | 2017-11-29 12:35 | ASMTCMCOM ---
CM Note CM Note Notes: Medically cleared for dc to [facility]. Final orders and dc summary sent via allscripts. Awaiting transport time. CM available should other needs arise. Plan: to [facility] via wheelchair transfer. Date Signed: 11/29/2017 12:35 PM Electronically Signed By:Bessy Stoll RN
[2017-11-29] MEDS ORDERED: WARFARIN SODIUM 3 MG TAB PO SCH (16:00)
[2017-12-02] MEDS ORDERED: WARFARIN SODIUM 3 MG TAB PO SCH (09:00)
== END 2017-11-29 17:01 | DRG 698 ==
LOC: EDUNIT# → F3N 23:43 → OBSVTOIN 11-26 14:08
PROVIDERS: ADMIT Family Medicine; ATTEND Family Medicine
DX: T83.518A Infection and inflammatory reaction due to other urinary catheter, initial encounter (principal); G45.9 Transient cerebral ischemic attack, unspecified; G93.40 Encephalopathy, unspecified; G31.84 Mild cognitive impairment of uncertain or unknown etiology; F03.90 Unspecified dementia, unspecified severity, without behavioral disturbance, psychotic disturbance, mood disturbance, and anxiety; R33.9 Retention of urine, unspecified; B95.7 Other staphylococcus as the cause of diseases classified elsewhere; I11.0 Hypertensive heart disease with heart failure; I50.31 Acute diastolic (congestive) heart failure; E11.40 Type 2 diabetes mellitus with diabetic neuropathy, unspecified; I49.5 Sick sinus syndrome; I48.91 Unspecified atrial fibrillation; I25.10 Atherosclerotic heart disease of native coronary artery without angina pectoris; I25.2 Old myocardial infarction; Z95.0 Presence of cardiac pacemaker; Z79.01 Long term (current) use of anticoagulants; Z87.440 Personal history of urinary (tract) infections
CPT/HCPCS: 84484-PO; 92507-GN; 92523-GN; 96365; 97110-GP; 97116-GP; 97162-GP; 97166-GO; 97530-GO; 97530-GP; 97535-GO; G8978-GP-CK; G8979-GP-CI; G8980-GP-CI; G8987-GO-CK; G8988-GO-CJ; G9168-GN-CM; G9169-GN-CL; J0690; J0696; J1940; Q9957

== ENCOUNTER 2017-12-17 20:06 | Inpatient (IN) | payer OTHER ==
[2017-12-17 20:21] LABS: PLATELET COUNT 203 10^3/uL (150-400)
[2017-12-17 20:33] LABS: INR 2.12 (0.83-1.16); PROTIME(PATIENT) 23.8 SEC (12.0-15.0)
--- NOTE | 2017-12-17 20:38 | EDPHY ---
H & P Time Seen by Provider: 12/17/17 20:06 HPI/ROS: HPI More confused, shaky. 82-year-old male by ambulance from [facility]. The half-way staff felt that the patient Clayton confused and shaky than usual. They thought he might be having a stroke. They called EMS. On EMS evaluation, the EMS crew did not feel that he was having a CVA but felt he was febrile and may be septic. On initial evaluation of the patient here he does not display a focal neurologic deficit. He has a history of dementia and it is difficult to get a history from the patient. His temperature here is 36.6. This was measured twice. ROS: Constitutional: No fever, no chills. No weakness. Eyes: No discharge. No changes in vision. ENT: No sore throat. No nasal congestion or rhinorrhea. Respiratory: No cough. No shortness of breath. Cardiac: No chest pain, no palpitations. Gastrointestinal: No abdominal pain, no vomiting, no diarrhea. Genitourinary: No hematuria. No dysuria or increased frequency with urination. Musculoskeletal: No back pain. No neck pain. No myalgias or arthralgias. Skin: No rashes. Neurological: No headache. No focal weakness or altered sensation. The patient answers no to all questions. Accuracy doubtful. 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 Social history: Nonsmoker. Here by himself. No alcohol. Full code. Physical Exam: General Appearance: Alert, he does not appear to be in distress. He is grabbing his genitalia repeatedly. He denies any pain to this area. This patient appears well-hydrated and well-nourished. Eyes: Pupils equal and round no pallor or injection. No lid edema, erythema or injection. ENT, Mouth: Mucous membranes are moist. The pharyngeal tissues are unremarkable. No edema or swelling. No asymmetry suggestive of abscess. No erythema or exudates. Respiratory: There are no retractions, lungs are clear to auscultation anteriorly with good air movement bilaterally. Cardiovascular: Regular rate and rhythm. No murmur appreciated. Gastrointestinal: Abdomen is soft and nontender, no masses, bowel sounds normal. No focal tenderness at McBurney's point. No Rojas sign. Neurological: Motor sensory function is grossly intact. Cranial nerves are normal. Gait is normal. Skin: Warm and dry, no rashes. Musculoskeletal: Neck is supple and nontender. Extremities are symmetrical. All joints range without pain or impingement. Psychiatric: Mild agitation. No depression. Database: EKG: Imaging: CT head without contrast: Negative. Results were discussed with staff radiologist Dr. Sahil Jett. Chest x-ray PA and lateral: The cardiac mediastinal silhouette is unremarkable. Left basilar atelectasis versus infiltrate. No pneumothorax. Interpreted by me. Procedures: Emergency department course: Cath urine specimen obtained. It is cloudy and malodorous. Triage vital signs reviewed. He is moderately hypertensive. Vital signs are otherwise normal. He is afebrile. IV was placed. He was started on IV normal saline with 500 cc to 1 L to be given over the next hour. Septic workup to be obtained. 9:00 p.m., patient is venous lactate is within normal limits at 1.8. Urinalysis indicates infection. Urine culture sent. Blood cultures obtained. The patient will be given 2 g of IV Rocephin in 500 mg of IV azithromycin for treatment of of definite urinary tract infection and possible pneumonia. Plan will be to admit this patient to the hospitalist service for IV antibiotics and observation. 9:20 p.m., spoke with hospitalist, Dr. Hartman. Case discussed in detail with her. She accepts this patient for admission. The patient's remaining emergency department course under my care has been uneventful. The patient was admitted to the hospitalist service in stable condition. Differential Diagnosis: The differential diagnosis on this patient includes but is not limited to urinary tract infection, pneumonia. The CVA unlikely. This represents a partial list of diagnoses considered. These considerations are based on history , physical exam, past history, reassessment and diagnostic testing. Smoking Status: Never smoked Constitutional: Initial Vital Signs Temperature (C) 36.6 C 12/17/17 20:11 Heart Rate 71 12/17/17 20:11 Respiratory Rate 18 12/17/17 20:11 Blood Pressure 144/86 H 12/17/17 20:11 O2 Sat (%) 94 12/17/17 20:11 O2 Delivery Mode Room Air Allergies/Adverse Reactions: CHICKEN FEATHERS Allergy (Mild, Uncoded 11/25/17 20:46) TESTED POSITIVE DUST Allergy (Mild, Uncoded 11/25/17 20:46) TESTED POSITIVE Home Medications: Medication Instructions Recorded Furosemide [Lasix 20 MG (*)] 10 mg PO DAILY 12/09/13 Gabapentin [Neurontin 300 MG (*)] 600 mg PO BID 02/27/17 metFORMIN HCL [Metformin HCl] 500 mg PO DAILY 02/27/17 Metoprolol Tartrate 50 mg PO BID 06/28/17 Warfarin Sodium 3 mg PO SUMOWETHFRSA@89911/25/17 Warfarin Sodium [Coumadin 3MG (*)] 4.5 mg PO TU@89911/25/17 Atorvastatin Calcium [Lipitor 20 20 mg PO DAILY tab 11/29/17 mg (*)] Cephalexin [Keflex (*)] 500 mg PO Q6HRS cap 11/29/17 Polyethylene Glycol 3350 [Miralax 17 gm PO DAILY PRN pkt 11/29/17 17 gm (*)] Medical Decision Making - Diagnostics Imaging Results: Imaging Impressions Chest X-Ray 12/17/17 20:09 Impression: Left basilar pneumonia versus atelectasis. - Data Points Laboratory Results: Laboratory Results 12/17/17 20:10 12/17/17 20:10 12/17/17 12/17/17 12/17/17 20:35 20:35 20:10 WBC RBC Hgb Hct MCV MCH MCHC RDW Plt Count MPV Neut % (Auto) Lymph % (Auto) [place] % (Auto) Eos % (Auto) Baso % (Auto) Nucleat RBC Rel Count Absolute Neuts (auto) Absolute Lymphs (auto) Absolute Monos (auto) Absolute Eos (auto) Absolute Basos (auto) Absolute Nucleated RBC Immature Gran % Immature Gran # PT 23.8 SEC H SEC (12.0-15.0) INR 2.12 H (0.83-1.16) APTT 37.7 SEC SEC (23.0-38.0) VBG Lactic Acid 1.8 mmol/L mmol/L (0.7-2.1) Sodium Potassium Chloride Carbon Dioxide Anion Gap BUN Creatinine Estimated GFR Glucose Calcium Total Bilirubin Urine Color YELLOW Urine Appearance TURBID Urine pH 6.0 (5.0-7.5) Ur Specific [place] 1.013 (1.002-1.030) Urine Protein 1+ H (NEGATIVE) Urine Ketones NEGATIVE (NEGATIVE) Urine Blood 2+ H (NEGATIVE) Urine Nitrate POSITIVE H (NEGATIVE) Urine Bilirubin NEGATIVE (NEGATIVE) Urine Urobilinogen 2.0 EU H EU (0.2-1.0) Ur Leukocyte Esterase 3+ H (NEGATIVE) Urine RBC 15-25 /hpf H /hpf (0-3) Urine WBC 50-182 /hpf H /hpf (0-3) Ur Epithelial Cells TRACE /lpf /lpf (NONE-1+) Urine Bacteria 1+ /hpf H /hpf (NONE SEEN) Urine Glucose NEGATIVE (NEGATIVE) 12/17/17 12/17/17 20:10 20:10 WBC 15.07 10^3/uL H 10^3/uL (3.80-9.50) RBC 4.95 10^6/uL 10^6/uL (4.40-6.38) Hgb 15.5 g/dL g/dL (13.7-17.5) Hct 45.3 % % (40.0-51.0) MCV 91.5 fL fL (81.5-99.8) MCH 31.3 pg pg (27.9-34.1) MCHC 34.2 g/dL g/dL (32.4-36.7) RDW 14.0 % % (11.5-15.2) Plt Count 203 10^3/uL 10^3/uL (150-400) MPV 10.8 fL fL (8.7-11.7) Neut % (Auto) 86.1 % H % (39.3-74.2) Lymph % (Auto) 6.4 % L % (15.0-45.0) [place] % (Auto) 6.4 % % (4.5-13.0) Eos % (Auto) 0.6 % % (0.6-7.6) Baso % (Auto) 0.2 % L % (0.3-1.7) Nucleat RBC Rel Count 0.0 % % (0.0-0.2) Absolute Neuts (auto) 12.98 10^3/uL H 10^3/uL (1.70-6.50) Absolute Lymphs (auto) 0.97 10^3/uL L 10^3/uL (1.00-3.00) Absolute Monos (auto) 0.96 10^3/uL H 10^3/uL (0.30-0.80) Absolute Eos (auto) 0.09 10^3/uL 10^3/uL (0.03-0.40) Absolute Basos (auto) 0.03 10^3/uL 10^3/uL (0.02-0.10) Absolute Nucleated RBC 0.00 10^3/uL 10^3/uL (0-0.01) Immature Gran % 0.3 % % (0.0-1.1) Immature Gran # 0.04 10^3/uL 10^3/uL (0.00-0.10) PT INR APTT VBG Lactic Acid Sodium 133 mEq/L L mEq/L (135-145) Potassium 5.1 mEq/L H mEq/L (3.3-5.0) Chloride 95 mEq/L L mEq/L (97-110) Carbon Dioxide 31 mEq/l mEq/l (22-31) Anion Gap 7 mEq/L mEq/L (6-14) BUN 26 mg/dL H mg/dL (7-23) Creatinine 0.9 mg/dL mg/dL (0.7-1.3) Estimated GFR > 60 Glucose 167 mg/dL H mg/dL (70-100) Calcium 9.7 mg/dL mg/dL (8.5-10.4) Total Bilirubin 0.8 mg/dL mg/dL (0.1-1.4) Urine Color Urine Appearance Urine pH Ur Specific [place] Urine Protein Urine Ketones Urine Blood Urine Nitrate Urine Bilirubin Urine Urobilinogen Ur Leukocyte Esterase Urine RBC Urine WBC Ur Epithelial Cells Urine Bacteria Urine Glucose Medications Given: Discontinued Medications Ceftriaxone Sodium 2 gm/ (Sodium Chloride) 50 mls @ 100 mls/hr IV EDNOW ONE PRN Reason: Protocol Stop: 12/17/17 21:29 Last Admin: 12/17/17 21:14 Dose: 50 mls Departure - Departure Disposition: [facility] Inpatient Acute Clinical Impression: Altered mental status, Urinary tract infection, Possible pneumonia Referrals: [facility] [Other] - As per Instructions
[2017-12-17] MEDS ORDERED: cefTRIAXone 1 GM/DEXTROSE 1 GM/50 ML BAG IV ONE (21:09)
[2017-12-17] MEDS ORDERED: NS 1,000 ML IV ONE (21:15)
[2017-12-17] MEDS ORDERED: AZITHROMYCIN IV 500 MG in D5W 250 ML IV ONE (21:27)
[2017-12-17] MEDS ORDERED: ONDANSETRON DISINTEGRATING 4 MG TAB PO PRN (22:52)
[2017-12-17] MEDS ORDERED: ONDANSETRON 4 MG/2 ML VIAL IVP PRN (22:52)
--- NOTE | 2017-12-17 22:54 | CPEKG ---
Test Reason : OPEN Blood Pressure : / mmHG Vent. Rate : 075 BPM Atrial Rate : 076 BPM P-R Int : 190 ms QRS Dur : 156 ms QT Int : 428 ms P-R-T Axes : 000 270 095 degrees QTc Int : 479 ms A-flutter/fibrillation w/ complete AV block Right bundle branch block Confirmed by Andreia Rios ([id number]) on 12/17/2017 10:53:42 PM Referred By: Confirmed By:Andreia Rios
[2017-12-17] MEDS ORDERED: D50W 25 GM/50 ML SYR IVP PRN (22:56)
[2017-12-17] MEDS ORDERED: NS 1,000 ML IV SCH (23:00)
--- NOTE | 2017-12-18 00:11 | PDGENHP ---
History and Physical - Chief Complaint Fever - History of Present Illness 82 yo M w/ hx of dementia, AF, and DM presents from living facility with a fever. The patient has advanced dementia and is unable to provide additional history. He is able to tell me he feels "lousy". He will not elaborate on what he means by this. He denies pain. His alert but only oriented to name at this time. In the ED evaluation was notable for likely UTI. He does seem to have some urgency by observation. CXR revealed LLL atelectasis vs. pneumonia but patient is breathing comfortable and stable on room air. Case discussed with Dr. Pozo; records reviewed in EMR. History Information - Allergies/Home Medication List Allergies/Adverse Reactions: CHICKEN FEATHERS Allergy (Mild, Uncoded 11/25/17 20:46) TESTED POSITIVE DUST Allergy (Mild, Uncoded 11/25/17 20:46) TESTED POSITIVE Home Medications: Furosemide [Lasix 20 MG (*)] 10 mg PO DAILY 12/09/13 [Last Taken 12/17/17] metFORMIN HCL [Metformin HCl] 500 mg PO DAILY 02/27/17 [Last Taken 12/17/17] Metoprolol Tartrate 50 mg PO BID 06/28/17 [Last Taken 12/17/17 09:00] Warfarin Sodium 3 mg PO HS 11/25/17 [Last Taken 12/16/17] Polyethylene Glycol 3350 [Miralax 17 gm (*)] 17 gm PO DAILY 12/17/17 [Last Taken 12/17/17] I have personally reviewed and updated: family history, medical history - Past Medical History atrial fibrillation, coronary artery disease, dementia, diabetes type 2 Additional medical history: Urinary retention with intermittent straight cathing - Surgical History Reports: hernia repair, pacemaker/AICD - Family History Additional family history: Asked, unable to provide - Social History Smoking Status: Never smoked Review of Systems Review of Systems: ROS: 10pt was reviewed & negative except for what was stated in HPI & below Physical Exam Physical Exam: Temp Pulse Resp BP Pulse Ox 36.7 C 78 24 H 120/74 93 12/17/17 23:05 12/17/17 23:05 12/17/17 23:05 12/17/17 23:05 12/17/17 23:05 Constitutional: no apparent distress, not in pain Eyes: PERRL, anicteric sclera Ears, Nose, Mouth, Throat: moist mucous membranes, no oral mucosal ulcers Cardiovascular: regular rate and rhythym, systolic murmur Respiratory: no respiratory distress, clear to auscultation Gastrointestinal: normoactive bowel sounds, soft, non-tender abdomen Skin: warm, normal color Neurologic: other (A&Ox1), No facial droop Psychiatric: interacting appropriately, poor insight, poor memory Lab Data & Imaging Review 12/17/17 20:10 12/17/17 20:10 WBC 15.07 10^3/uL (3.80-9.50) H 12/17/17 20:10 RBC 4.95 10^6/uL (4.40-6.38) 12/17/17 20:10 Hgb 15.5 g/dL (13.7-17.5) 12/17/17 20:10 Hct 45.3 % (40.0-51.0) 12/17/17 20:10 MCV 91.5 fL (81.5-99.8) 12/17/17 20:10 MCH 31.3 pg (27.9-34.1) 12/17/17 20:10 MCHC 34.2 g/dL (32.4-36.7) 12/17/17 20:10 RDW 14.0 % (11.5-15.2) 12/17/17 20:10 Plt Count 203 10^3/uL (150-400) 12/17/17 20:10 MPV 10.8 fL (8.7-11.7) 12/17/17 20:10 Neut % (Auto) 86.1 % (39.3-74.2) H 12/17/17 20:10 Lymph % (Auto) 6.4 % (15.0-45.0) L 12/17/17 20:10 [place] % (Auto) 6.4 % (4.5-13.0) 12/17/17 20:10 Eos % (Auto) 0.6 % (0.6-7.6) 12/17/17 20:10 Baso % (Auto) 0.2 % (0.3-1.7) L 12/17/17 20:10 Nucleat RBC Rel Count 0.0 % (0.0-0.2) 12/17/17 20:10 Absolute Neuts (auto) 12.98 10^3/uL (1.70-6.50) H 12/17/17 20:10 Absolute Lymphs (auto) 0.97 10^3/uL (1.00-3.00) L 12/17/17 20:10 Absolute Monos (auto) 0.96 10^3/uL (0.30-0.80) H 12/17/17 20:10 Absolute Eos (auto) 0.09 10^3/uL (0.03-0.40) 12/17/17 20:10 Absolute Basos (auto) 0.03 10^3/uL (0.02-0.10) 12/17/17 20:10 Absolute Nucleated RBC 0.00 10^3/uL (0-0.01) 12/17/17 20:10 Immature Gran % 0.3 % (0.0-1.1) 12/17/17 20:10 Immature Gran # 0.04 10^3/uL (0.00-0.10) 12/17/17 20:10 PT 23.8 SEC (12.0-15.0) H 12/17/17 20:10 INR 2.12 (0.83-1.16) H 12/17/17 20:10 APTT 37.7 SEC (23.0-38.0) 12/17/17 20:10 VBG Lactic Acid 1.8 mmol/L (0.7-2.1) 12/17/17 20:35 Sodium 133 mEq/L (135-145) L 12/17/17 20:10 Potassium 5.1 mEq/L (3.3-5.0) H 12/17/17 20:10 Chloride 95 mEq/L (97-110) L 12/17/17 20:10 Carbon Dioxide 31 mEq/l (22-31) 12/17/17 20:10 Anion Gap 7 mEq/L (6-14) 12/17/17 20:10 BUN 26 mg/dL (7-23) H 12/17/17 20:10 Creatinine 0.9 mg/dL (0.7-1.3) 12/17/17 20:10 Estimated GFR > 60 12/17/17 20:10 Glucose 167 mg/dL (70-100) H 12/17/17 20:10 Calcium 9.7 mg/dL (8.5-10.4) 12/17/17 20:10 Total Bilirubin 0.8 mg/dL (0.1-1.4) 12/17/17 20:10 Urine Color YELLOW 12/17/17 20:35 Urine Appearance TURBID 12/17/17 20:35 Urine pH 6.0 (5.0-7.5) 12/17/17 20:35 Ur Specific [place] 1.013 (1.002-1.030) 12/17/17 20:35 Urine Protein 1+ (NEGATIVE) H 12/17/17 20:35 Urine Ketones NEGATIVE (NEGATIVE) 12/17/17 20:35 Urine Blood 2+ (NEGATIVE) H 12/17/17 20:35 Urine Nitrate POSITIVE (NEGATIVE) H 12/17/17 20:35 Urine Bilirubin NEGATIVE (NEGATIVE) 12/17/17 20:35 Urine Urobilinogen 2.0 EU (0.2-1.0) H 12/17/17 20:35 Ur Leukocyte Esterase 3+ (NEGATIVE) H 12/17/17 20:35 Urine RBC 15-25 /hpf (0-3) H 12/17/17 20:35 Urine WBC 50-182 /hpf (0-3) H 12/17/17 20:35 Ur Epithelial Cells TRACE /lpf (NONE-1+) 12/17/17 20:35 Urine Bacteria 1+ /hpf (NONE SEEN) H 12/17/17 20:35 Urine Glucose NEGATIVE (NEGATIVE) 12/17/17 20:35 Imaging Review: Imaging Impressions Chest X-Ray 12/17/17 20:09 Impression: Left basilar pneumonia versus atelectasis. Head CT 12/17/17 20:19 Impression: Negative. No acute intracranial hemorrhage or subdural hematoma. Findings discussed with Emergency Department physician, Andreia Rios MD at 12/17/2017 21:32. Assessment & Plan Assessment: 82 yo M w/ hx of dementia, AF, and DM presents with UTI. Plan: 1. UTI - Patient has history of recurrent UTI's in the setting of urinary retention and need for intermittent catheterization. His last urine cultures revealed lyon-sensitive Staph and E. Coli. He presents today after fever at his facility (none here), and leukocytosis. He has dysuria and frequency after arriving on the floor. - CTX 1 g qD - Urine culture pending 2. AF - On warfarin and metoprolol as an outpatient. - Continue home medications - Monitor daily INR 3. DM - Continue metformin - Monitor BG ACHS - D50 IV PRN for hypoglycemia 4. Hx of urinary retention - Straight cath PRN 5. Acute on chronic encephalopathy - A&Ox1 on my evaluation with minimal contribution to history; review of previous records reveals he is usually more contributory to history. This is likely related to acute infection. - Treat infection as above - Avoid centrally acting medications Diet - Regular Code - Full Ppx - warfarin Dispo - Admit under observation status
[2017-12-18] MEDS ORDERED: MELATONIN 3 MG TAB PO PRN (02:28)
[2017-12-18] MEDS ORDERED: LIDOCAINE 2% JELLY 20 ML (UROJECT) UR ONE (03:00)
[2017-12-18] MEDS ORDERED: LIDOCAINE 2% JELLY 20 ML (UROJECT) ONE (03:04)
[2017-12-18 05:09] LABS: PLATELET COUNT 162 10^3/uL (150-400)
[2017-12-18 05:19] LABS: INR 2.25 (0.83-1.16); PROTIME(PATIENT) 24.9 SEC (12.0-15.0)
[2017-12-18] MEDS: ACETAMINOPHEN 325 MG TAB PO PRN ×3 (06:29→22:26)
[2017-12-18] MEDS ORDERED: ENOXAPARIN 40 MG/0.4 ML SYR SC SCH (09:00)
[2017-12-18] MEDS ORDERED: PHENAZOPYRIDINE HCL 100 MG TAB PO ONE (09:20)
[2017-12-18] MEDS: metFORMIN HCL 500 MG TAB PO SCH (09:44)
[2017-12-18] MEDS: METOPROLOL TARTRATE 50 MG TAB PO SCH ×2 (09:44→22:19)
--- NOTE | 2017-12-18 11:02 | HOSPPROG ---
Hospitalist Progress Note Assessment/Plan: 82 yo M w/ hx of dementia, AF, and DM presents with UTI. * UTI - has dysuria and frequency - tells me he gets frequent UTI's and self catheters - dc Ceftriaxone, his previous cx grew out Staph Haemolyticus and ecoli both sensitive to Cefazolin - Urine culture pending *leukocytosis -repeat labs in a.m. * AF -OAC + beta yoni -INR stable *DM - Continue metformin - Monitor BG ACHS * Hx of urinary retention - Straight cath PRN * Acute on chronic encephalopathy -was alert and oriented x one last night -oriented to person, place, time and situation today -per nursing staff was pulling iv out and confused last night -he shares he lives on his own but spoke w CM and he lives at [facility] *dementia -appears to be at his baseline *Plan: Jamey will need another midnight to evaluate urine cx, to be sure his wbc count is improving. Subjective: Jamey said he is feeling much better today. Objective: Vital Signs Temp Pulse Resp BP Pulse Ox 98.2 C H 71 18 152/100 H 93 12/18/17 08:00 12/18/17 08:00 12/18/17 08:00 12/18/17 08:00 12/18/17 08:00 Laboratory Results 12/18/17 04:18 12/18/17 04:18 12/17/17 12/18/17 12/19/17 05:59 05:59 05:59 Intake Total 1000 Output Total 50 510 Balance 950 -510 PT 24.9 SEC (12.0-15.0) H 12/18/17 04:18 INR 2.25 (0.83-1.16) H 12/18/17 04:18 - Physical Exam Constitutional: no apparent distress, appears nourished, not in pain Eyes: PERRL Ears, Nose, Mouth, Throat: hearing normal Cardiovascular: regular rate and rhythym, systolic murmur Respiratory: no respiratory distress Skin: warm Musculoskeletal: generalized weakness Neurologic: AAOx3 Psychiatric: interacting appropriately, poor memory ICD10 Worksheet Patient Problems: Problems Problem Status Onset Altered mental status Acute UTI (urinary tract infection) Acute Chest pain Acute TIA (transient ischemic attack) Acute
--- NOTE | 2017-12-18 14:11 | ASMTCMCOM ---
CM Note CM Note Notes: Spoke with pt's RN. Pt is a resident at [facility], admitted for UTI after presenting with fever and altered mental status. PT has history of dementia, A fib, diabetes, and pacer. Pt was still a 1:1 with an RN this morning but has been able to graduate to decreased supervision in the last hour. Referral sent to [facility] and call placed to Admissions there. Pt will return to [facility] on discharge. D/C Plan: [facility] Date Signed: 12/18/2017 02:10 PM Electronically Signed By:Cheyanne Henson
[2017-12-18] MEDS: PHENAZOPYRIDINE HCL 100 MG TAB PO SCH ×2 (15:04→18:40)
[2017-12-18] MEDS: POLYETHYLENE GLYCOL 3350 17 GM PKT PO SCH (15:05)
--- NOTE | 2017-12-18 15:56 | PDMN ---
Medical Necessity Medical necessity: Change to IP, as of 12/18/17, per & MCG M-300; los >2 mn for ongoing management of UTI w/acute on chronic encephalopathy; urine cx pending; requiring further monitoring, IV abx, follow-up labs & therapies; comorbid advanced age, frequent UTIs, urine retention-straight caths PRN, dementia, AFIB, CAD, diabetes
[2017-12-18] MEDS: WARFARIN SODIUM 3 MG TAB PO SCH (22:19)
[2017-12-19 05:14] LABS: PLATELET COUNT 152 10^3/uL (150-400)
[2017-12-19] MEDS ORDERED: FUROSEMIDE 20 MG TAB PO SCH (09:00)
[2017-12-19] MEDS: PHENAZOPYRIDINE HCL 100 MG TAB PO SCH ×3 (10:14→21:23)
[2017-12-19] MEDS: METOPROLOL TARTRATE 50 MG TAB PO SCH ×2 (10:15→21:23)
[2017-12-19] MEDS: metFORMIN HCL 500 MG TAB PO SCH (10:15)
[2017-12-19] MEDS: POLYETHYLENE GLYCOL 3350 17 GM PKT PO SCH (10:24)
--- NOTE | 2017-12-19 11:26 | HOSPPROG ---
Hospitalist Progress Note Assessment/Plan: 82 yo M w/ hx of dementia, AF, and DM presents with UTI. * UTI - has dysuria and frequency - tells me he gets frequent UTI's and self catheters - urine cx shows Citrobacter -seen with indwelling catheters and in the elderly , concerned he is introducing infections when he self cath - sensitive to Levaquin *urinary retention -ongoing and patient has been able to self catheterize *leukocytosis -better * AF -OAC + beta yoni -INR stable *DM - Continue metformin - Monitor BG ACHS * Hx of urinary retention - Straight cath PRN * Acute metabolic encephalopathy -secondary to uti -worse today, and is very confused. Hopefully, being on the Levaquin will help him improve. *dementia -appreciate ST seeing him, he scored 22/30 on the SLUMS. He has word finding difficulty and often isn't aware and is impulsive *Plan: will gently hydrate him with 500 ml of saline, his mucus membranes are dry, change abx to Levaquin. He lives at [facility], checking into seeing if they can straight cath him several times a day. Check INR in the a.m. Subjective: Jamey says he has no pain. Objective: Vital Signs Temp Pulse Resp BP Pulse Ox 36.3 C 70 16 142/74 H 92 12/19/17 07:02 12/19/17 10:15 12/19/17 07:02 12/19/17 10:15 12/19/17 07:02 Laboratory Results 12/19/17 04:14 12/18/17 12/19/17 12/20/17 05:59 05:59 05:59 Intake Total 919 Output Total 2125 400 Balance -1206 -400 PT 24.9 SEC (12.0-15.0) H 12/18/17 04:18 INR 2.25 (0.83-1.16) H 12/18/17 04:18 - Physical Exam Constitutional: uncomfortable Eyes: PERRL Ears, Nose, Mouth, Throat: hearing normal, dry mucous membranes Cardiovascular: regular rate and rhythym Respiratory: no respiratory distress Skin: warm Psychiatric: encephalopathic, other (oriented to self, not sure where he is or why he is here) ICD10 Worksheet Patient Problems: Problems Problem Status Onset Altered mental status Acute UTI (urinary tract infection) Acute Chest pain Acute TIA (transient ischemic attack) Acute
[2017-12-19] MEDS ORDERED: NS 500 ML IV SCH (14:15)
[2017-12-19] MEDS ORDERED: OLANZapine DISINTEGR 5 MG TAB PO ONE (14:59)
[2017-12-19] MEDS ORDERED: OLANZapine 10 MG/2 ML VIAL IM ONE (15:07)
[2017-12-19] MEDS ORDERED: LORazepam 2 MG/ML INJ IVP ONE (15:58)
[2017-12-19] MEDS ORDERED: OLANZapine 2.5 MG TAB PO PRN (17:29)
[2017-12-19] MEDS: HALOPERIDOL LACT 5 MG/ML INJ IVP PRN (19:10)
[2017-12-19] MEDS: DOXYCYCLINE INJ 100 MG in NS 250 ML IV SCH (20:07)
[2017-12-19] MEDS: NS 1,000 ML IV SCH (20:07)
[2017-12-19] MEDS: WARFARIN SODIUM 3 MG TAB PO SCH (21:23)
[2017-12-19 21:27] LABS: PLATELET COUNT 140 10^3/uL (150-400)
--- NOTE | 2017-12-20 00:31 | HOSPPROG ---
Hospitalist Progress Note Assessment/Plan: Contacted by RN at 6:30 p.m. to emergently evaluate patient's agitation and acute encephalopathy: - initially d/w Mayra Tang on day-shift, received sign-out; reviewed chart notes prior to seeing patient - patient transferred to ICU by Mayra Tang for acute toxic encephalopathy 2 /2 suspected fluoroquinalone effect, with resultant agitation, non-directibility , and inability to follow commands, all of which is an acute change from his cognitive baseline prior to receiving Rx - physical exam demonstrates AAOx1 (location only), inability to consistently follow commands or engage, tachycardic, regular HR, lungs clear but unable to deeply inspire, abd soft, hands in mitts, trace bilat LE edema, condom cath removed by patient - d/w executive staff assistant no appreciable response to zyprexa and their concern that he would not swallow PO - we administered haldol 2.5mg IV, kept on mitt restraints - placed on supplemental o2 given anticipation of hypoventilation w/ sedation - cont on IVF o/n, given inability to safely take PO - given hx of urinary retention, placed laws cath to alleviate additional patient anxiety/agitation of urinary retention - re-evaluated patient twice during Swing shift, both times he was resting comfortably - RN reported he received PRN melatonin and zyprexa 2.5 safely after his agitation calmed s/p haldol - restraints adjusted accordingly 30 minutes of critical care time spent specifically addressing his acute toxic encephalopathy at bedside, requiring ICU level care for high-risk of worsening morbidity/mortality from severe agitation; patient remains critically ill Objective: Vital Signs Temp Pulse Resp BP Pulse Ox 37.1 C 70 28 H 101/58 L 95 12/20/17 00:00 12/20/17 00:00 12/20/17 00:00 12/20/17 00:00 12/20/17 00:00 Laboratory Results 12/19/17 21:15 12/19/17 21:15 12/18/17 12/19/17 12/20/17 05:59 05:59 05:59 Intake Total 919 Output Total 2125 800 Balance -1206 -800 PT 24.9 SEC (12.0-15.0) H 12/18/17 04:18 INR 2.25 (0.83-1.16) H 12/18/17 04:18 ICD10 Worksheet Patient Problems: Problems Problem Status Onset Chest pain Acute Altered mental status Acute TIA (transient ischemic attack) Acute UTI (urinary tract infection) Acute
[2017-12-20] MEDS: HALOPERIDOL LACT 5 MG/ML INJ IVP PRN (02:25)
[2017-12-20 05:06] LABS: PLATELET COUNT 141 10^3/uL (150-400)
[2017-12-20 05:16] LABS: INR 1.71 (0.83-1.16); PROTIME(PATIENT) 20.2 SEC (12.0-15.0)
[2017-12-20] MEDS: NS 1,000 ML IV SCH (05:52)
[2017-12-20] MEDS ORDERED: DOXYCYCLINE HYCLATE 100 MG CAP/TAB PO SCH (09:00)
[2017-12-20] MEDS: DOXYCYCLINE INJ 100 MG in NS 250 ML IV SCH ×2 (09:22→21:00)
--- NOTE | 2017-12-20 10:09 | HOSPPROG ---
Hospitalist Progress Note Assessment/Plan: # acute on chronic encephalopathy, reported underlying dementia - previously lived independently, now at [facility], clearly not at baseline - currently sleeping and unarousable, likely d/t haldol and zyrexa last night - also very agitated yesterday after receiving levaquin - continue close monitoring # UTI, citrobacter - currently getting doxy # urinary retention - laws in place # a-fib - cont warfarin + BB - INR slightly low, recheck tomorrow # DM - cont metformin # recent TIA - cont warfarin, not on statin Subjective: very agitated yesterday, now sleeping soundly difficult to awake Objective: Vital Signs Temp Pulse Resp BP Pulse Ox 36.4 C 79 26 H 124/89 H 97 12/20/17 04:00 12/20/17 09:18 12/20/17 09:18 12/20/17 09:18 12/20/17 09:18 Laboratory Results 12/20/17 04:55 12/20/17 04:55 12/19/17 12/20/17 12/21/17 05:59 05:59 05:59 Intake Total 919 1640 Output Total 2127 1900 Balance -1206 -260 PT 20.2 SEC (12.0-15.0) H 12/20/17 04:55 INR 1.71 (0.83-1.16) H 12/20/17 04:55 chart reviewed CXR personally reviewed - Physical Exam Constitutional: other (sleeping, unarousable) Cardiovascular: regular rate and rhythym, no murmur, rub, or gallop Respiratory: no respiratory distress, no rales or rhonchi Gastrointestinal: soft, non-tender abdomen, No guarding, No rebound, No distension ICD10 Worksheet Patient Problems: Problems Problem Status Onset Chest pain Acute Altered mental status Acute TIA (transient ischemic attack) Acute UTI (urinary tract infection) Acute
[2017-12-20] MEDS: PHENAZOPYRIDINE HCL 100 MG TAB PO SCH ×3 (11:46→18:06)
[2017-12-20] MEDS: METOPROLOL TARTRATE 50 MG TAB PO SCH ×2 (11:46→21:00)
[2017-12-20] MEDS: POLYETHYLENE GLYCOL 3350 17 GM PKT PO SCH (11:47)
[2017-12-20] MEDS: metFORMIN HCL 500 MG TAB PO SCH (12:47)
[2017-12-20] MEDS: ALBUTEROL 3 ML DEYVIAL IH PRN (13:00)
[2017-12-20] MEDS: AMPICILLIN/SULBACTAM 3 GM in NS 100 ML IV SCH ×2 (17:40→17:41)
[2017-12-20] MEDS: WARFARIN SODIUM 3 MG TAB PO SCH (21:00)
[2017-12-21] MEDS: AMPICILLIN/SULBACTAM 3 GM in NS 100 ML IV SCH ×5 (01:13→23:36)
[2017-12-21 05:01] LABS: INR 1.73 (0.83-1.16); PROTIME(PATIENT) 20.4 SEC (12.0-15.0)
[2017-12-21 06:35] LABS: PLATELET COUNT 129 10^3/uL (150-400)
[2017-12-21] MEDS: NS 1,000 ML IV SCH (07:54)
[2017-12-21] MEDS: DOXYCYCLINE INJ 100 MG in NS 250 ML IV SCH (08:50)
--- NOTE | 2017-12-21 10:00 | ASMTCMCOM ---
CM Note CM Note Notes: Patient not at her baseline as yet. Was agitated then lethargic. Working on getting her back to baseline and back to [facility] where she resides. Date Signed: 12/21/2017 09:59 AM Electronically Signed By:Peggy Jensen LCSW
[2017-12-21] MEDS: PHENAZOPYRIDINE HCL 100 MG TAB PO SCH ×3 (10:48→18:53)
[2017-12-21] MEDS: METOPROLOL TARTRATE 50 MG TAB PO SCH ×2 (10:48→21:06)
[2017-12-21] MEDS: SULFAMETHOX/TMP 800/160 MG 1 TAB PO SCH ×2 (10:48→21:06)
--- NOTE | 2017-12-21 10:57 | HOSPPROG ---
Hospitalist Progress Note Assessment/Plan: # acute on chronic encephalopathy, reported underlying dementia - most c/w delirium - currently reversed sleep-wake cycle; will attempt to keep awake today - previously lived independently, recent dc to [facility] after TIA # UTI, citrobacter - abx changed to bactrim # aspiration pna - unasyn started # urinary retention - laws in place # a-fib - cont warfarin + BB - INR slightly low, recheck tomorrow # DM - cont metformin # recent TIA - cont warfarin, not on statin Subjective: did not sleep last night; now sleeping very soundly Objective: Vital Signs Temp Pulse Resp BP Pulse Ox 38.2 C 70 29 H 123/68 H 97 12/20/17 20:00 12/21/17 07:58 12/21/17 07:58 12/21/17 07:58 12/21/17 07:58 Laboratory Results 12/21/17 06:15 12/21/17 06:15 12/20/17 12/21/17 12/22/17 05:59 05:59 05:59 Intake Total 1640 2501 Output Total 1900 1400 Balance -260 1101 PT 20.4 SEC (12.0-15.0) H 12/21/17 04:35 INR 1.73 (0.83-1.16) H 12/21/17 04:35 CXR personally reviewed discussed with Dr Iqbal - Physical Exam Constitutional: other (sleeping, unable to awake) Cardiovascular: regular rate and rhythym, no murmur, rub, or gallop Respiratory: no respiratory distress, no rales or rhonchi, clear to auscultation Gastrointestinal: soft, non-tender abdomen, no palpable masses, No rebound ICD10 Worksheet Patient Problems: Problems Problem Status Onset Chest pain Acute Altered mental status Acute TIA (transient ischemic attack) Acute UTI (urinary tract infection) Acute
[2017-12-21] MEDS: POLYETHYLENE GLYCOL 3350 17 GM PKT PO SCH (10:59)
[2017-12-21] MEDS: metFORMIN HCL 500 MG TAB PO SCH (11:44)
[2017-12-21] MEDS: ACETAMINOPHEN 325 MG TAB PO PRN (16:31)
[2017-12-21] MEDS ORDERED: WARFARIN SODIUM 5 MG TAB PO ONE (21:00)
[2017-12-22] MEDS: NS 1,000 ML IV SCH (05:07)
[2017-12-22] MEDS: AMPICILLIN/SULBACTAM 3 GM in NS 100 ML IV SCH ×3 (05:13→18:09)
[2017-12-22 05:22] LABS: PLATELET COUNT 138 10^3/uL (150-400)
[2017-12-22 05:25] LABS: INR 2.26 (0.83-1.16)
[2017-12-22] MEDS: METOPROLOL TARTRATE 50 MG TAB PO SCH ×2 (08:17→21:10)
[2017-12-22] MEDS: PHENAZOPYRIDINE HCL 100 MG TAB PO SCH ×2 (08:18→13:23)
[2017-12-22] MEDS: SULFAMETHOX/TMP 800/160 MG 1 TAB PO SCH ×2 (08:18→21:11)
[2017-12-22] MEDS: metFORMIN HCL 500 MG TAB PO SCH (08:18)
[2017-12-22] MEDS: POLYETHYLENE GLYCOL 3350 17 GM PKT PO SCH (08:18)
--- NOTE | 2017-12-22 09:29 | HOSPPROG ---
Hospitalist Progress Note Assessment/Plan: # acute on chronic encephalopathy, reported underlying dementia - occurred after levaquin; also likely component of hospital delirium - much better today; # UTI, citrobacter - abx changed to bactrim # aspiration pna - cont unasyn, plan 5 day course # urinary retention - laws in place # a-fib/ppm - cont warfarin + BB - INR slightly low, recheck tomorrow # DM - cont metformin # recent TIA - cont warfarin, not on statin # dispo - med surg Subjective: conversant today; AOx3 Objective: Vital Signs Temp Pulse Resp BP Pulse Ox 37.2 C 80 22 H 105/62 93 12/22/17 07:52 12/22/17 07:52 12/22/17 07:52 12/22/17 07:52 12/22/17 07:52 Laboratory Results 12/22/17 05:05 12/22/17 05:05 12/21/17 12/22/17 12/23/17 05:59 05:59 05:59 Intake Total 2501 2834 Output Total 1400 1475 Balance 1101 1359 PT 25.0 SEC (12.0-15.0) H 12/22/17 05:05 INR 2.26 (0.83-1.16) H 12/22/17 05:05 high risk with ongoing confusion - Physical Exam Constitutional: chronically ill appearing Cardiovascular: regular rate and rhythym, no murmur, rub, or gallop Respiratory: no respiratory distress, clear to auscultation, expiratory wheeze ( mild), No reduced air movement Gastrointestinal: soft, non-tender abdomen, No guarding, No rebound, No distension ICD10 Worksheet Patient Problems: Problems Problem Status Onset Chest pain Acute Altered mental status Acute TIA (transient ischemic attack) Acute UTI (urinary tract infection) Acute
[2017-12-22] MEDS: ALBUTEROL 3 ML DEYVIAL IH PRN (10:24)
[2017-12-22] MEDS: ACETAMINOPHEN 325 MG TAB PO PRN (10:50)
--- NOTE | 2017-12-22 14:21 | ASMTCMCOM ---
CM Note CM Note Notes: Wrote a letter for Komal Croft, patient's MPOA. She is helping him move from [place] to [facility]. Patient clearer today, mild confusion. Date Signed: 12/22/2017 02:20 PM Electronically Signed By:Peggy Jensen LCSW
[2017-12-22] MEDS ORDERED: WARFARIN SODIUM 3 MG TAB PO SCH (21:00)
[2017-12-23 05:18] LABS: PLATELET COUNT 134 10^3/uL (150-400)
[2017-12-23 05:31] LABS: INR 3.17 (0.83-1.16); PROTIME(PATIENT) 32.3 SEC (12.0-15.0)
[2017-12-23] MEDS: AMPICILLIN/SULBACTAM 3 GM in NS 100 ML IV SCH ×5 (05:39→23:22)
--- NOTE | 2017-12-23 09:18 | HOSPPROG ---
Hospitalist Progress Note Assessment/Plan: 82 yo M w/ hx of dementia, AF, and DM presents with UTI. # acute on chronic encephalopathy, reported underlying dementia - occurred after levaquin; also likely component of hospital delirium - much better today # UTI, Citrobacter - abx changed to bactrim # aspiration pna - cont unasyn, day #4, plan 5 day course # urinary retention - laws in place # a-fib/ppm - cont warfarin + BB - INR at 3.17, will hold warfarin, will recheck INR in the a.m. # DM - cont metformin # recent TIA - cont warfarin, not on statin # right knee pain- get an xray #plan: dc to rehab in the next day or so, Coumadin on hold, recheck INR in the a.m., Levaquin now listed as an allergy, patient had an adverse reaction to it * Subjective: Jamey is c/o right knee pain, and worried his legs have some swelling. Objective: Vital Signs Temp Pulse Resp BP Pulse Ox 36.5 C 71 18 123/70 H 98 12/23/17 07:52 12/23/17 07:52 12/23/17 07:52 12/23/17 07:52 12/23/17 07:52 Laboratory Results 12/23/17 04:19 12/23/17 04:19 12/22/17 12/23/17 12/24/17 05:59 05:59 05:59 Intake Total 2834 2050 Output Total 1122 743 7473 Balance 1359 1350 -1000 PT 32.3 SEC (12.0-15.0) H 12/23/17 04:19 INR 3.17 (0.83-1.16) H 12/23/17 04:19 - Physical Exam Constitutional: no apparent distress, appears nourished Eyes: PERRL Ears, Nose, Mouth, Throat: hearing normal Cardiovascular: regular rate and rhythym Respiratory: no respiratory distress, rhonchi (few scattered) Gastrointestinal: normoactive bowel sounds Genitourinary: laws in urethra Skin: warm Musculoskeletal: generalized weakness Psychiatric: interacting appropriately, poor memory (recognized me but couldn't remember how) ICD10 Worksheet Patient Problems: Problems Problem Status Onset Altered mental status Acute UTI (urinary tract infection) Acute Chest pain Acute TIA (transient ischemic attack) Acute
[2017-12-23] MEDS: METOPROLOL TARTRATE 50 MG TAB PO SCH ×3 (09:33→23:14)
[2017-12-23] MEDS: POLYETHYLENE GLYCOL 3350 17 GM PKT PO SCH ×2 (09:33→09:38)
[2017-12-23] MEDS: metFORMIN HCL 500 MG TAB PO SCH (09:34)
[2017-12-23] MEDS: ACETAMINOPHEN 325 MG TAB PO PRN (11:55)
[2017-12-23] MEDS: SULFAMETHOX/TMP 800/160 MG 1 TAB PO SCH ×2 (11:56→22:19)
[2017-12-23] MEDS: ALBUTEROL 3 ML DEYVIAL IH PRN ×2 (14:09→23:35)
[2017-12-24] MEDS: AMPICILLIN/SULBACTAM 3 GM in NS 100 ML IV SCH ×2 (05:04→13:42)
[2017-12-24 05:13] LABS: INR 3.62 (0.83-1.16); PROTIME(PATIENT) 35.8 SEC (12.0-15.0)
[2017-12-24 07:34] VITALS: BP 148/92
[2017-12-24] MEDS: ACETAMINOPHEN 325 MG TAB PO PRN (08:19)
[2017-12-24] MEDS: SULFAMETHOX/TMP 800/160 MG 1 TAB PO SCH (08:19)
[2017-12-24] MEDS: METOPROLOL TARTRATE 50 MG TAB PO SCH (08:19)
[2017-12-24] MEDS: POLYETHYLENE GLYCOL 3350 17 GM PKT PO SCH (08:20)
[2017-12-24] MEDS: metFORMIN HCL 500 MG TAB PO SCH (08:20)
--- NOTE | 2017-12-24 11:36 | PDIAF ---
- Diagnosis Diagnosis: cysitits Code Status: Full Code - Medication Management Discharge Medications: Medications to Continue on Transfer Furosemide [Lasix 20 MG (*)] 10 mg PO DAILY 12/09/13 [Last Taken 12/17/17] metFORMIN HCL [Metformin HCl] 500 mg PO DAILY 02/27/17 [Last Taken 12/17/17] Metoprolol Tartrate 50 mg PO BID 06/28/17 [Last Taken 12/17/17 09:00] Warfarin Sodium 3 mg PO HS 11/25/17 [Last Taken 12/16/17] Polyethylene Glycol 3350 [Miralax 17 gm (*)] 17 gm PO DAILY 12/17/17 [Last Taken 12/17/17] Acetaminophen [Tylenol 325mg (*)] 650 mg PO Q4HRS PRN tab 12/24/17 [Last Taken Unknown] Albuterol [Proventil Neb] 3 ml IH Q6H PRN deyvial 12/24/17 [Last Taken Unknown] Melatonin [Melatonin 3 MG (*)] 3 - 6 mg PO HS PRN tab 12/24/17 [Last Taken Unknown] OLANZapine [ZyPREXA 2.5 mg (*)] 2.5 mg PO HS PRN tab 12/24/17 [Last Taken Unknown] Polyethylene Glycol 3350 [Miralax 17 gm (*)] 17 gm PO DAILY pkt 12/24/17 [Last Taken Unknown] Sulfamethox/Tmp 800/160 mg [Bactrim DS] 1 ea PO BID tab 12/24/17 [Last Taken Unknown] Discharge Medications: Refer to the Discharge Home Medication list for PRN reason. PICC Care - Routine: N/A - Orders Services needed: Registered Nurse, Physical Therapy, Occupational Therapy Diet Recommendation: ADA 2000 consistent carb Diet Texture: Regular Texture Diet, Thin Liquids, Meds Whole w/Liquids - Follow Up Care Current Providers and Referrals: COURT SMITH [Other] - As per Instructions
--- NOTE | 2017-12-24 12:19 | ASMTLACE ---
LACE Length of stay for Answers: 7-13 days current admission Acuity / Level of Answers: Yes Care: Did the patient have an inpatient admission? Comorbidities - select Answers: Coronary Artery Disease all that apply Dementia Diabetes (uncontrolled or controlled) Previous myocardial infarction Other Notes: HTN; AFib # of Emergency department Answers: 3-4 visits in the last 6 months Score: 19 Date Signed: 12/24/2017 12:18 PM Electronically Signed By:Ella Morfin RN
--- NOTE | 2017-12-24 14:39 | ASMTDCNOTE ---
Case Management Discharge Discharge Order Complete? Answers: Yes Patient to Obtain Answers: Other Notes: [facility] Medications Transportation Arranged Answers: [facility] Stretcher Case Management Transport Answers: Yes Form Complete Faxed Final Orders Answers: Yes Agency/Facility Transfer Answers: Yes Report Printed & Faxed to Receiving Agency Discharge Comments Notes: 12/24/2017 Case Management Note Pt to return to [facility]. Faxed final discharge orders. Requested stretcher transport per RN. RN states pt is unable to safely sit in a wheelchair d/t trunk instability, proprioception challenges and INR of 3.6 making pt high risk for complications if there is a fall. [facility] to arrange transport. Sent MDPOA paperwork and MOST to [facility]. RN to call report. Case Management d/c: [facility] Date Signed: 12/24/2017 02:38 PM Electronically Signed By:FATOU Chakraborty
--- NOTE | 2017-12-24 14:40 | ASDISCHSUM ---
Discharge Information Plan Status:SNF Medically Cleared to Leave: Discharge Date:12/24/2017 02:14 PM CM D/C Disposition:Longterm Facility ADT D/C Disposition:Longterm Facility Projected Discharge Date:12/20/2017 11:00 AM Transportation at D/C:ALS/BLS Discharge Delay Reason: Follow-Up Date:12/20/2017 11:00 AM Discharge Slot: Final Diagnosis: Placement Information Referral Type:*Senior Care/SNF Referral ID:[id number] Provider Name:[facility] Address 1:[address] Address 2: City:[place] Selection Factors: State:[place] Patient Contact Information Contact Name:YANIRA Relationship:Friend Address: Work Phone: [facility]:[place] Alternate Phone: [facility]/Zip Code:[place] [address] Email: Financial Information Financial Class:Medicare Primary Plan Desc:MEDICARE INPATIENT Primary Plan Number:[id number] Secondary Plan Desc:[facility] INSURANCE Secondary Plan Number:[id number] Assessment Information LACE LACE Length of stay for Answers: 7-13 days current admission Acuity / Level of Answers: Yes Care: Did the patient have an inpatient admission? Comorbidities - select Answers: Coronary Artery Disease all that apply Dementia Diabetes (uncontrolled or controlled) Previous myocardial infarction Other Notes: HTN; AFib # of Emergency department Answers: 3-4 visits in the last 6 months Score: 19 Date Signed: 12/24/2017 12:18 PM Electronically Signed By:Ella Morfin RN [facility] CM Progress Note CM Note CM Note Notes: Spoke with pt's RN. Pt is a resident at [facility], admitted for UTI after presenting with fever and altered mental status. PT has history of dementia, A fib, diabetes, and pacer. Pt was still a 1:1 with an RN this morning but has been able to graduate to decreased supervision in the last hour. Referral sent to [facility] and call placed to Admissions there. Pt will return to [facility] on discharge. D/C Plan: [facility] Date Signed: 12/18/2017 02:10 PM Electronically Signed By:Cheyanne Henson [facility] CM Progress Note CM Note CM Note Notes: Patient not at her baseline as yet. Was agitated then lethargic. Working on getting her back to baseline and back to [facility] where she resides. Date Signed: 12/21/2017 09:59 AM Electronically Signed By:Peggy Jensen LCSW [facility] CM Progress Note CM Note CM Note Notes: Wrote a letter for Komal Croft, patient's MPOA. She is helping him move from [place] to [facility]. Patient clearer today, mild confusion. Date Signed: 12/22/2017 02:20 PM Electronically Signed By:Peggy Jensen LCSW Case Management Discharge Plan Note Case Management Discharge Discharge Order Complete? Answers: Yes Patient to Obtain Answers: Other Notes: [facility] Medications Transportation Arranged Answers: [facility] Case Management Transport Answers: Yes Form Complete Faxed Final Orders Answers: Yes Agency/Facility Transfer Answers: Yes Report Printed & Faxed to Receiving Agency Discharge Comments Notes: 12/24/2017 Case Management Note Pt to return to [facility]. Faxed final discharge orders. Requested stretcher transport per RN. RN states pt is unable to safely sit in a wheelchair d/t trunk instability, proprioception challenges and INR of 3.6 making pt high risk for complications if there is a fall. [facility] to arrange transport. [facility] and MOST to [facility]. RN to call report. Case Management d/c: [facility] Date Signed: 12/24/2017 02:38 PM Electronically Signed By:FATOU Chakraborty Intervention Information Intervention Type:*GERMAIN-Signed Date of Service:12/18/2017 10:58 AM Patient Type:Observation Staff Member:Trice Chan Hours: Discipline: Severity: Comment:
--- NOTE | 2017-12-25 14:58 | GDS ---
DISCHARGE DIAGNOSES: 1. Acute on chronic encephalopathy. 2. Urinary tract infection. 3. Aspiration pneumonia. 4. Urinary retention. 5. Atrial fibrillation. 6. Diabetes mellitus. 7. Recent transient ischemic attack. PHYSICAL EXAM: GENERAL: The patient is alert. VITAL SIGNS: Afebrile at 36.9, pulse 81, respirator y rate 16. Blood pressure is 140/92. He is saturating 88% on room air. I have seen and evaluated t he patient on the day of discharge. HOSPITAL COURSE: The patient is an 82-year-old male, presents with confusion. He was evaluated and diagnosed with: 1. Acute on chronic encephalopathy. The patient does have underlying dementia; however, this was ex acerbated after taking Levaquin. His mentation has significantly improved during this hospitalizatio n. 2. Urinary tract infection. Antibiotics are being given, has been adjusted to Bactrim. He is mariposa ating this well. 3. Aspiration pneumonia. The patient has been treated with 5 days of Unasyn and appears to be stabl e. 4. Urinary retention. A Goodwin catheter has been placed, and this should be evaluated with a voiding trial in the future. 5. History of atrial fibrillation with a permanent pacemaker. He is on warfarin, as well as beta bl ocker. His INR was elevated during this hospitalization, and his Coumadin is being held and should b e evaluated in the outpatient setting. 6. Diabetes mellitus. Continue his metformin. DISPOSITION: The [facility] for [facility] a nd management. There are no pending studies. DISCHARGE MEDICATIONS: Please refer to EMR form. The patient's Coumadin will be continued, and his INR should be evaluated in 1-2 days. FOLLOWUP: Followup will be with his primary care physician. I have spent greater than 35 minutes in the care, coordination, and management of the patient's dispo sition. /[id number]/MODL
== END 2017-12-24 14:14 | DRG 689 ==
LOC: EDUNIT# → F3E 23:13 → OBSVTOIN 12-18 15:30 → F2N 12-19 17:24 → F3N 12-22 17:56
PROVIDERS: ADMIT Internal Medicine; ATTEND Internal Medicine
DX: N39.0 Urinary tract infection, site not specified (principal); G92 Toxic encephalopathy; J69.8 Pneumonitis due to inhalation of other solids and liquids; E86.9 Volume depletion, unspecified; T36.8X5A Adverse effect of other systemic antibiotics, initial encounter; R33.9 Retention of urine, unspecified; I48.91 Unspecified atrial fibrillation; E11.9 Type 2 diabetes mellitus without complications; F03.90 Unspecified dementia, unspecified severity, without behavioral disturbance, psychotic disturbance, mood disturbance, and anxiety; Z86.73 Personal history of transient ischemic attack (TIA), and cerebral infarction without residual deficits; Z95.0 Presence of cardiac pacemaker; Z79.01 Long term (current) use of anticoagulants; Z79.84 Long term (current) use of oral hypoglycemic drugs
CPT/HCPCS: 92507-GN; 92523-GN; 92610-GN; 96365; 97116-GP; 97162-GP; 97164-GP; 97166-GO; 97530-GO; 97530-GP; 97535-GO; G0378; G8978-GP-CL; G8979-GP-CI; G8987-GO-CI; G8988-GO-CI; G8996-GN-CI; G8997-GN-CI; G8998-GN-CI; G9168-GN-CK; G9169-GN-CJ; J0295; J0456; J0690; J0696; J1630; J2060; J2270; J7613

== ENCOUNTER 2018-02-02 21:27 | Emergency (ER) | payer OTHER ==
--- NOTE | 2018-02-02 22:15 | EDPHY ---
H & P Stated Complaint: possible urinary retention, had laws put in 3 days ago, says no op 2.5 hr Time Seen by Provider: 02/02/18 21:59 HPI/ROS: HPI The patient presents with urinary catheter problems. The patient has had a Laws catheter with leg bag in place for the last 3 days. He is being treated for urinary tract infection. He took a shower earlier today and disconnected the leg bag from the catheter. When he went to reattached a leg bag he noticed for about 1 hr there was minimal urine output. This was concerning to him and so he comes into the emergency department. He denies any hematuria. He does feel some suprapubic pressure in his abdomen. He has not had a fever or chills.. REVIEW OF SYSTEMS 10 systems were reviewed and negative with the exception of the elements mentioned in the history of present illness. PMHx: Currently being treated for urinary tract infection, history of frequent UTIs, diabetes, hypertension, atrial fibrillation Soc Hx: Here with his PHYSICAL General Appearance: Alert, no distress Eyes: Pupils equal and round no pallor or injection ENT, Mouth: Mucous membranes moist Respiratory: There are no retractions, lungs are clear to auscultation Cardiovascular: Regular rate and rhythm Gastrointestinal: Abdomen is soft and non-tender, no masses, bowel sounds normal Neurological: A&O, moves all extremities Skin: Warm and dry, no rashes Musculoskeletal: Neck is supple non tender Extremities: symmetrical, full range of motion Psychiatric: Patient is oriented X 3, there is no agitation Source: Patient Exam Limitations: No limitations - Personal History Tetanus Vaccine Date: WITHIN 10 YRS - Medical/Surgical History Hx Asthma: Yes Hx Chronic Respiratory Disease: No Hx Diabetes: No Hx Cardiac Disease: Yes Hx Renal Disease: No Hx Cirrhosis: No Hx Alcoholism: No Hx HIV/AIDS: No Hx Splenectomy or Spleen Trauma: No Other PMH: HTN, MIx1, angiogram,Pacer, cardiac cath, hernia repair, bladder complications w/ qid cath, fx uti's, atrial fibrillation, neuropathy, 'mild' diabetes, dementia - Social History Smoking Status: Never smoked Constitutional: Initial Vital Signs Temperature (C) 36.5 C 02/02/18 21:33 Heart Rate 77 02/02/18 21:33 Respiratory Rate 18 02/02/18 21:33 Blood Pressure 137/84 H 02/02/18 21:33 O2 Sat (%) 94 02/02/18 21:33 O2 Delivery Mode Room Air Allergies/Adverse Reactions: levofloxacin [From Levaquin] Allergy (Severe, Verified 02/02/18 21:39) DELIRIUM [employer]ATHERS Allergy (Mild, Uncoded 11/25/17 20:46) TESTED POSITIVE DUST Allergy (Mild, Uncoded 11/25/17 20:46) TESTED POSITIVE Home Medications: Medication Instructions Recorded Furosemide [Lasix 20 MG (*)] 10 mg PO DAILY 12/09/13 metFORMIN HCL [Metformin HCl] 500 mg PO DAILY 02/27/17 Metoprolol Tartrate 50 mg PO BID 06/28/17 Warfarin Sodium 3 mg PO HS 11/25/17 Polyethylene Glycol 3350 [Miralax 17 gm PO DAILY 12/17/17 17 gm (*)] Acetaminophen [Tylenol 325mg (*)] 650 mg PO Q4HRS PRN tab 12/24/17 Albuterol [Proventil Neb] 3 ml IH Q6H PRN deyvial 12/24/17 Melatonin [Melatonin 3 MG (*)] 3 - 6 mg PO HS PRN tab 12/24/17 OLANZapine [ZyPREXA 2.5 mg (*)] 2.5 mg PO HS PRN tab 12/24/17 Polyethylene Glycol 3350 [Miralax 17 gm PO DAILY pkt 12/24/17 17 gm (*)] Sulfamethox/Tmp 800/160 mg 1 ea PO BID tab 12/24/17 [Bactrim DS] Medical Decision Making Differential Diagnosis: 82-year-old male, here with his with Laws catheter in place for the last 3 days, being treated for urinary tract infection, presents with decreased urine output over the last several hours into his catheter bag. He disconnected his leg bag from his catheter while taking a shower. When he reattached it, there was very minimal urine out, maybe about 5 mL over approximately 1 hr. He was concerned that he had not reattached the bag properly or there was some problem with the catheter. Urine that is draining appears clear. Bladder scan was performed showing 81 mL of urine within his bladder. We were able to flush his catheter without difficulty. It is now draining normally. Patient will be discharged from the emergency department. Departure - Departure Disposition: Home, Routine, Self-Care Clinical Impression: Laws catheter problem Qualifiers: Encounter type: initial encounter Qualified Code(s): T83.9XXA - Unspecified complication of genitourinary prosthetic device, implant and graft, initial encounter UTI (urinary tract infection) Qualifiers: Urinary tract infection type: site unspecified Hematuria presence: without hematuria Qualified Code(s): N39.0 - Urinary tract infection, site not specified Condition: Good Instructions: Laws Catheter Placement and Care (ED) Additional Instructions: Please keep the catheter and leg bag in place at all times. Referrals: Clair Adams MD [Medical Doctor] - As per Instructions
[2018-02-02 22:49] VITALS: BP 130/79
== END 2018-02-02 22:48 | disposition home or self-care (01) ==
PROC: 4A0D7LZ Measurement of Urinary Volume, Via Natural or Artificial Opening (ICD-10-PCS; principal; 2018-02-02)
DX: T83.9XXA Unspecified complication of genitourinary prosthetic device, implant and graft, initial encounter (principal); N39.0 Urinary tract infection, site not specified; R33.9 Retention of urine, unspecified; E11.42 Type 2 diabetes mellitus with diabetic polyneuropathy; I10 Essential (primary) hypertension; I48.91 Unspecified atrial fibrillation; I25.2 Old myocardial infarction; Z79.01 Long term (current) use of anticoagulants; Z87.440 Personal history of urinary (tract) infections

== ENCOUNTER 2018-03-29 13:04 | Inpatient (IN) | payer OTHER ==
[2018-03-29 13:23] LABS: PLATELET COUNT 197 10^3/uL (150-400)
--- NOTE | 2018-03-29 13:27 | EDPHY ---
H & P Stated Complaint: per ems pt standing in foyer at [facility] with bag of urine , poss alt ms Time Seen by Provider: 03/29/18 13:09 HPI/ROS: CHIEF COMPLAINT: Found in [facility]. Confused. HISTORY OF PRESENT ILLNESS: The patient is brought into the emergency department from an assisted living facility after he was found on the floor of [facility]. The patient has a history of dementia and is a terrible historian. The patient does have a chronic indwelling Goodwin catheter and leg bag which appears to have disconnected. The patient denies any acute complaints of pain. He does not recall the events surrounding his transport to the emergency department earlier today. According to the assisted living facility the patient lives independently. He is usually ambulatory, alert and conversant however does have symptoms of mild dementia. REVIEW OF SYSTEMS: A comprehensive 10 point review of systems is unobtainable secondary to the patient's baseline altered mental status. Source: Patient Exam Limitations: Physical impairment - Personal History Tetanus Vaccine Date: WITHIN 10 YRS - Medical/Surgical History Hx Asthma: Yes Hx Chronic Respiratory Disease: No Hx Diabetes: No Hx Cardiac Disease: Yes Hx Renal Disease: No Hx Cirrhosis: No Hx Alcoholism: No Hx HIV/AIDS: No Hx Splenectomy or Spleen Trauma: No Other PMH: HTN, MIx1, angiogram,Pacer, cardiac cath, hernia repair, bladder complications w/ qid cath, fx uti's, atrial fibrillation, neuropathy, 'mild' diabetes, dementia - Social History Smoking Status: Never smoked - Physical Exam Exam: General Appearance: Alert, no distress Eyes: Pupils equal and round no pallor or injection ENT, Mouth: Mucous membranes moist Respiratory: There are no retractions, lungs are clear to auscultation Cardiovascular: Regular rate and rhythm Gastrointestinal: Abdomen is soft and nontender, no masses, bowel sounds normal Neurological: 5/5 strength noted all 4 extremities, alert and oriented timesx2 (likely baseline) Skin: Warm and dry, no rashes Musculoskeletal: Neck is supple nontender Extremities: symmetrical, full range of motion Constitutional: Initial Vital Signs Temperature (C) 37.2 C 03/29/18 13:13 Heart Rate 70 03/29/18 13:13 Respiratory Rate 16 03/29/18 13:13 Blood Pressure 108/62 03/29/18 13:13 O2 Sat (%) 94 03/29/18 13:13 O2 Delivery Mode Room Air Allergies/Adverse Reactions: levofloxacin [From Levaquin] Allergy (Severe, Verified 02/02/18 21:39) DELIRIUM CHICKEN FEATHERS Allergy (Mild, Uncoded 11/25/17 20:46) TESTED POSITIVE DUST Allergy (Mild, Uncoded 11/25/17 20:46) TESTED POSITIVE Home Medications: Medication Instructions Recorded Furosemide [Lasix 20 MG (*)] 10 mg PO DAILY 12/09/13 metFORMIN HCL [Metformin HCl] 500 mg PO DAILY 02/27/17 Metoprolol Tartrate 50 mg PO BID 06/28/17 Warfarin Sodium 3 mg PO HS 11/25/17 Polyethylene Glycol 3350 [Miralax 17 gm PO DAILY 12/17/17 17 gm (*)] Acetaminophen [Tylenol 325mg (*)] 650 mg PO Q4HRS PRN tab 12/24/17 Albuterol [Proventil Neb] 3 ml IH Q6H PRN deyvial 12/24/17 Melatonin [Melatonin 3 MG (*)] 3 - 6 mg PO HS PRN tab 12/24/17 OLANZapine [ZyPREXA 2.5 mg (*)] 2.5 mg PO HS PRN tab 12/24/17 Gabapentin 03/29/18 Medical Decision Making - Diagnostics Imaging Results: Imaging Impressions Head CT 03/29/18 14:54 Impression: 1. Diffuse atrophy and probable white matter small vessel disease. 2. Nothing acute is identified. Results called and discussed with Jose Pedersen on 03/29/2018 15:59. ED Course/Re-evaluation: The patient is nontoxic and well-appearing. He is afebrile. He has no leukocytosis. The patient has no acute complaints. 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 The patient was observed in the emergency department. There is no evidence of an obvious traumatic injury. The patient was taken for a CT scan of his head given his history of being found down. It shows no evidence of an intracranial hemorrhage but does show fairly significant atrophy. The patient did receive IV fluids in the emergency department. He is noted to have pyuria and bacteriuria in his urine. Given his acute confusion he will be treated presumptively for UTI. He received a g of ceftriaxone. The patient is noted to have evidence of dehydration clinically and serologically with an elevated BUN of 28. The patient had serial examinations in the ED. While he is able to ambulate with assistance I am concerned about his safety being discharged back to an independent living facility. I feel he needs to be admitted to the hospital for fluid IV rehydration, case management and safety evaluation. Consultation was made with Dr. Pooja Pozo. Differential Diagnosis: Differential diagnosis considered includes dehydration, metabolic abnormality, urinary tract infection - Data Points Laboratory Results: Laboratory Results 03/29/18 13:08 03/29/18 13:08 03/29/18 03/29/18 03/29/18 15:00 13:08 13:08 WBC RBC Hgb Hct MCV MCH MCHC RDW Plt Count MPV Neut % (Auto) Lymph % (Auto) [place] % (Auto) Eos % (Auto) Baso % (Auto) Nucleat RBC Rel Count Absolute Neuts (auto) Absolute Lymphs (auto) Absolute Monos (auto) Absolute Eos (auto) Absolute Basos (auto) Absolute Nucleated RBC Immature Gran % Seg Neutrophils % Band Neutrophils % Lymphocytes % Monocytes % Eosinophils % Basophils % Metamyelocytes % Myelocytes % Promyelocytes % Blast Cells % Immature Gran # Absolute Seg Neuts Absolute Band Neuts Absolute Lymphocytes Absolute Monocytes Absolute Eosinophils Absolute Basophils Absolute Metamyelocyte Absolute Myelocytes Absolute Promyelocytes Absolute Plasma Cells Nucleated RBCs Absolute Blast Cells Plasma Cells % Platelet Estimate Sodium 136 mEq/L mEq/L (135-145) Potassium 4.5 mEq/L mEq/L (3.5-5.2) Chloride 105 mEq/L mEq/L (97-110) Carbon Dioxide 25 mEq/l mEq/l (22-31) Anion Gap 6 mEq/L mEq/L (6-14) BUN 28 mg/dL H mg/dL (7-23) Creatinine 0.7 mg/dL mg/dL (0.7-1.3) Estimated GFR > 60 Glucose 137 mg/dL H mg/dL (70-100) Calcium 9.2 mg/dL mg/dL (8.5-10.4) Creatine Kinase 41 IU/L IU/L (0-224) Urine Color YELLOW Urine Appearance HAZY Urine pH 6.0 (5.0-7.5) Ur Specific [place] 1.021 (1.002-1.030) Urine Protein 2+ H (NEGATIVE) Urine Ketones NEGATIVE (NEGATIVE) Urine Blood 2+ H (NEGATIVE) Urine Nitrate NEGATIVE (NEGATIVE) Urine Bilirubin NEGATIVE (NEGATIVE) Urine Urobilinogen NEGATIVE EU EU (0.2-1.0) Ur Leukocyte Esterase TRACE H (NEGATIVE) Urine RBC 50-182 /hpf H /hpf (0-3) Urine WBC 15-25 /hpf H /hpf (0-3) Ur Epithelial Cells NONE SEEN /lpf /lpf (NONE-1+) Urine Bacteria 4+ /hpf H /hpf (NONE SEEN) Urine Mucus TRACE /lpf /lpf (NONE-1+) Urine Glucose NEGATIVE (NEGATIVE) 03/29/18 13:08 WBC 9.02 10^3/uL 10^3/uL (3.80-9.50) RBC 4.59 10^6/uL 10^6/uL (4.40-6.38) Hgb 14.4 g/dL g/dL (13.7-17.5) Hct 41.6 % % (40.0-51.0) MCV 90.6 fL fL (81.5-99.8) MCH 31.4 pg pg (27.9-34.1) MCHC 34.6 g/dL g/dL (32.4-36.7) RDW 13.6 % % (11.5-15.2) Plt Count 197 10^3/uL 10^3/uL (150-400) MPV 10.5 fL fL (8.7-11.7) Neut % (Auto) 90.2 % H % (39.3-74.2) Lymph % (Auto) 4.2 % L % (15.0-45.0) [place] % (Auto) 5.3 % % (4.5-13.0) Eos % (Auto) 0.0 % L % (0.6-7.6) Baso % (Auto) 0.1 % L % (0.3-1.7) Nucleat RBC Rel Count 0.0 % % (0.0-0.2) Absolute Neuts (auto) 8.13 10^3/uL H 10^3/uL (1.70-6.50) Absolute Lymphs (auto) 0.38 10^3/uL L 10^3/uL (1.00-3.00) Absolute Monos (auto) 0.48 10^3/uL 10^3/uL (0.30-0.80) Absolute Eos (auto) 0.00 10^3/uL L 10^3/uL (0.03-0.40) Absolute Basos (auto) 0.01 10^3/uL L 10^3/uL (0.02-0.10) Absolute Nucleated RBC 0.00 10^3/uL 10^3/uL (0-0.01) Immature Gran % 0.2 % % (0.0-1.1) Seg Neutrophils % 93.0 % % Band Neutrophils % 0.0 % % Lymphocytes % 3.0 % % Monocytes % 4.0 % % Eosinophils % 0.0 % % Basophils % 0.0 % % Metamyelocytes % 0.0 % % Myelocytes % 0.0 % % Promyelocytes % 0.0 % % Blast Cells % 0.0 % % Immature Gran # 0.02 10^3/uL 10^3/uL (0.00-0.10) Absolute Seg Neuts 8.39 10^3/uL H 10^3/uL (1.70-6.50) Absolute Band Neuts 0.00 10^3/uL 10^3/uL (0.00-0.70) Absolute Lymphocytes 0.27 10^3/uL L 10^3/uL (1.00-3.00) Absolute Monocytes 0.36 10^3/uL 10^3/uL (0.30-0.80) Absolute Eosinophils 0.00 10^3/uL L 10^3/uL (0.03-0.40) Absolute Basophils 0.00 10^3/uL L 10^3/uL (0.02-0.10) Absolute Metamyelocyte 0.00 10^3/mL 10^3/mL (0.00-0.00) Absolute Myelocytes 0.00 10^3/mL 10^3/mL (0.00-0.00) Absolute Promyelocytes 0.00 10^3/uL 10^3/uL (0.00-0.00) Absolute Plasma Cells 0.00 10^3/uL 10^3/uL (0.00-0.00) Nucleated RBCs 0 /100 WBC /100 WBC (0-0) Absolute Blast Cells 0.00 10^3/uL 10^3/uL (0.00-0.00) Plasma Cells % 0.0 % % Platelet Estimate ADEQUATE (ADEQ) Sodium Potassium Chloride Carbon Dioxide Anion Gap BUN Creatinine Estimated GFR Glucose Calcium Creatine Kinase Urine Color Urine Appearance Urine pH Ur Specific [place] Urine Protein Urine Ketones Urine Blood Urine Nitrate Urine Bilirubin Urine Urobilinogen Ur Leukocyte Esterase Urine RBC Urine WBC Ur Epithelial Cells Urine Bacteria Urine Mucus Urine Glucose Medications Given: Ceftriaxone Sodium/Dextrose (Rocephin 1 Gm (Premix)) 50 mls @ 100 mls/hr IV EDNOW ONE PRN Reason: Protocol Stop: 03/29/18 16:25 Last Admin: 03/29/18 15:59 Dose: 50 mls Departure - Departure Disposition: [facility] Inpatient Acute Clinical Impression: Dementia, Urinary tract infection, Dehydration
[2018-03-29 15:13] LABS: CREATINE KINASE 41 IU/L (0-224)
[2018-03-29] MEDS ORDERED: ONDANSETRON DISINTEGRATING 4 MG TAB PO PRN (17:16)
[2018-03-29] MEDS ORDERED: ONDANSETRON 4 MG/2 ML VIAL IVP PRN (17:16)
[2018-03-29] MEDS ORDERED: oxyCODONE IR 5 MG TAB PO PRN (17:16)
[2018-03-29] MEDS ORDERED: ACETAMINOPHEN 325 MG TAB PO PRN (17:16)
[2018-03-29] MEDS ORDERED: PROMETHAZINE HCL 25 MG/ML INJ IVP PRN (17:16)
[2018-03-29] MEDS ORDERED: HYDROCODONE/APAP 5/325 TAB PO PRN (17:16)
--- NOTE | 2018-03-29 17:46 | PDGENHP ---
History and Physical - Chief Complaint confusion - History of Present Illness 82 yo M with PMH of dementia, frequent UTIs, CAD, DM2 residing at [facility] presenting from his facility with concerns that he was wandering the halls confused, there is a report that he may have been found on the floor. Patient remains quite confused at the time of my evaluation and therefore the majority of the history is obtained per chart review, report from his close friend present at bedside and per ER report. Friend notes that she had last spoken to him last night when he seemed to be in his usual state of health and not confused that she could tell. He did acknowledge that he had fallen out of bed however earlier that night. She was unable to reach him today and therefore called the facility and was told that he had been wandering the halls confused and as such was brought to the ER. ER doctor reports that he was found on the floor in the stairwell. Patient himself cannot contribute to this history and does not recall what was going on at the facility, he denies confusion though he has evident issues with his memory during the conversation. He does have a chronic lasw since his last hospital discharge in 12/2017-- prior to that he would straight cath. Friend notes that he gets abruptly confused like this whenever he has a urine infection. She also notes that his dose of metoprolol was recently doubled (last week) and that ever since then he has been having increased falls and she states his BP has been as low as the 110 's systolic. She believe he only took the 1/2 prescribed dose this morning at her insistence. History Information - Allergies/Home Medication List Allergies/Adverse Reactions: levofloxacin [From Levaquin] Allergy (Severe, Verified 02/02/18 21:39) DELIRIUM CHICKEN FEATHERS Allergy (Mild, Uncoded 11/25/17 20:46) TESTED POSITIVE DUST Allergy (Mild, Uncoded 11/25/17 20:46) TESTED POSITIVE Home Medications: Furosemide [Lasix 20 MG (*)] 10 mg PO DAILY 12/09/13 [Last Taken 12/17/17] metFORMIN HCL [Metformin HCl] 500 mg PO DAILY 02/27/17 [Last Taken 12/17/17] Metoprolol Tartrate 50 mg PO BID 06/28/17 [Last Taken 12/17/17 09:00] Warfarin Sodium 3 mg PO HS 11/25/17 [Last Taken 12/16/17] Polyethylene Glycol 3350 [Miralax 17 gm (*)] 17 gm PO DAILY 12/17/17 [Last Taken 12/17/17] Gabapentin 03/29/18 [Last Taken Unknown] I have personally reviewed and updated: family history, medical history, social history, surgical history - Past Medical History atrial fibrillation, coronary artery disease, dementia, 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 gait instability and frequent falls - Surgical History Reports: hernia repair, pacemaker/AICD - Family History Positive for: non-pertinent - Social History Smoking Status: Never smoked Alcohol Use: None Drug Use: None Additional social history: resides at [facility], has a terminal block assembler friend/girlfriend very involved in his care present at bedside Review of Systems Review of Systems: ROS: 10pt was reviewed & negative except for what was stated in HPI & below Physical Exam Physical Exam: Temp Pulse Resp BP Pulse Ox 36.9 C 75 18 118/69 93 03/29/18 17:04 03/29/18 17:04 03/29/18 17:04 03/29/18 17:04 03/29/18 17:04 Constitutional: appears nourished, chronically ill appearing, unkempt Eyes: PERRL, anicteric sclera Ears, Nose, Mouth, Throat: hearing normal, no oral mucosal ulcers, dry mucous membranes Cardiovascular: regular rate and rhythym, no murmur, rub, or gallop, edema (2+ ble edema) Respiratory: no respiratory distress, no rales or rhonchi, reduced air movement Gastrointestinal: normoactive bowel sounds, soft, non-tender abdomen Genitourinary: laws in urethra Skin: warm, normal color Musculoskeletal: no muscle tenderness, No asymmetric calves Neurologic: CN II-XII Intact, No AAOx3 Psychiatric: not anxious, encephalopathic, poor memory Lab Data & Imaging Review 03/29/18 13:08 03/29/18 13:08 WBC 9.02 10^3/uL (3.80-9.50) 03/29/18 13:08 RBC 4.59 10^6/uL (4.40-6.38) 03/29/18 13:08 Hgb 14.4 g/dL (13.7-17.5) 03/29/18 13:08 Hct 41.6 % (40.0-51.0) 03/29/18 13:08 MCV 90.6 fL (81.5-99.8) 03/29/18 13:08 MCH 31.4 pg (27.9-34.1) 03/29/18 13:08 MCHC 34.6 g/dL (32.4-36.7) 03/29/18 13:08 RDW 13.6 % (11.5-15.2) 03/29/18 13:08 Plt Count 197 10^3/uL (150-400) 03/29/18 13:08 MPV 10.5 fL (8.7-11.7) 03/29/18 13:08 Neut % (Auto) 90.2 % (39.3-74.2) H 03/29/18 13:08 Lymph % (Auto) 4.2 % (15.0-45.0) L 03/29/18 13:08 [place] % (Auto) 5.3 % (4.5-13.0) 03/29/18 13:08 Eos % (Auto) 0.0 % (0.6-7.6) L 03/29/18 13:08 Baso % (Auto) 0.1 % (0.3-1.7) L 03/29/18 13:08 Nucleat RBC Rel Count 0.0 % (0.0-0.2) 03/29/18 13:08 Absolute Neuts (auto) 8.13 10^3/uL (1.70-6.50) H 03/29/18 13:08 Absolute Lymphs (auto) 0.38 10^3/uL (1.00-3.00) L 03/29/18 13:08 Absolute Monos (auto) 0.48 10^3/uL (0.30-0.80) 03/29/18 13:08 Absolute Eos (auto) 0.00 10^3/uL (0.03-0.40) L 03/29/18 13:08 Absolute Basos (auto) 0.01 10^3/uL (0.02-0.10) L 03/29/18 13:08 Absolute Nucleated RBC 0.00 10^3/uL (0-0.01) 03/29/18 13:08 Immature Gran % 0.2 % (0.0-1.1) 03/29/18 13:08 Seg Neutrophils % 93.0 % 03/29/18 13:08 Band Neutrophils % 0.0 % 03/29/18 13:08 Lymphocytes % 3.0 % 03/29/18 13:08 Monocytes % 4.0 % 03/29/18 13:08 Eosinophils % 0.0 % 03/29/18 13:08 Basophils % 0.0 % 03/29/18 13:08 Metamyelocytes % 0.0 % 03/29/18 13:08 Myelocytes % 0.0 % 03/29/18 13:08 Promyelocytes % 0.0 % 03/29/18 13:08 Blast Cells % 0.0 % 03/29/18 13:08 Immature Gran # 0.02 10^3/uL (0.00-0.10) 03/29/18 13:08 Absolute Seg Neuts 8.39 10^3/uL (1.70-6.50) H 03/29/18 13:08 Absolute Band Neuts 0.00 10^3/uL (0.00-0.70) 03/29/18 13:08 Absolute Lymphocytes 0.27 10^3/uL (1.00-3.00) L 03/29/18 13:08 Absolute Monocytes 0.36 10^3/uL (0.30-0.80) 03/29/18 13:08 Absolute Eosinophils 0.00 10^3/uL (0.03-0.40) L 03/29/18 13:08 Absolute Basophils 0.00 10^3/uL (0.02-0.10) L 03/29/18 13:08 Absolute Metamyelocyte 0.00 10^3/mL (0.00-0.00) 03/29/18 13:08 Absolute Myelocytes 0.00 10^3/mL (0.00-0.00) 03/29/18 13:08 Absolute Promyelocytes 0.00 10^3/uL (0.00-0.00) 03/29/18 13:08 Absolute Plasma Cells 0.00 10^3/uL (0.00-0.00) 03/29/18 13:08 Nucleated RBCs 0 /100 WBC (0-0) 03/29/18 13:08 Absolute Blast Cells 0.00 10^3/uL (0.00-0.00) 03/29/18 13:08 Plasma Cells % 0.0 % 03/29/18 13:08 Platelet Estimate ADEQUATE (ADEQ) 03/29/18 13:08 Sodium 136 mEq/L (135-145) 03/29/18 13:08 Potassium 4.5 mEq/L (3.5-5.2) 03/29/18 13:08 Chloride 105 mEq/L (97-110) 03/29/18 13:08 Carbon Dioxide 25 mEq/l (22-31) 03/29/18 13:08 Anion Gap 6 mEq/L (6-14) 03/29/18 13:08 BUN 28 mg/dL (7-23) H 03/29/18 13:08 Creatinine 0.7 mg/dL (0.7-1.3) 03/29/18 13:08 Estimated GFR > 60 03/29/18 13:08 Glucose 137 mg/dL (70-100) H 03/29/18 13:08 Calcium 9.2 mg/dL (8.5-10.4) 03/29/18 13:08 Creatine Kinase 41 IU/L (0-224) 03/29/18 13:08 Urine Color YELLOW 03/29/18 15:00 Urine Appearance HAZY 03/29/18 15:00 Urine pH 6.0 (5.0-7.5) 03/29/18 15:00 Ur Specific [place] 1.021 (1.002-1.030) 03/29/18 15:00 Urine Protein 2+ (NEGATIVE) H 03/29/18 15:00 Urine Ketones NEGATIVE (NEGATIVE) 03/29/18 15:00 Urine Blood 2+ (NEGATIVE) H 03/29/18 15:00 Urine Nitrate NEGATIVE (NEGATIVE) 03/29/18 15:00 Urine Bilirubin NEGATIVE (NEGATIVE) 03/29/18 15:00 Urine Urobilinogen NEGATIVE EU (0.2-1.0) 03/29/18 15:00 Ur Leukocyte Esterase TRACE (NEGATIVE) H 03/29/18 15:00 Urine RBC 50-182 /hpf (0-3) H 03/29/18 15:00 Urine WBC 15-25 /hpf (0-3) H 03/29/18 15:00 Ur Epithelial Cells NONE SEEN /lpf (NONE-1+) 03/29/18 15:00 Urine Bacteria 4+ /hpf (NONE SEEN) H 03/29/18 15:00 Urine Mucus TRACE /lpf (NONE-1+) 03/29/18 15:00 Urine Glucose NEGATIVE (NEGATIVE) 03/29/18 15:00 Visualized and Interpreted imaging results: Yes Interpretation: head CT: atrophy, nothing acute Assessment & Plan Assessment: UTI (urinary tract infection) (Acute) Dementia (Acute) Dehydration (Acute) 82 yo M with PMH of DM2, AF, CAD, dementia, frequent UTIs and chronic indwelling laws presenting with acute encephalopathy and possible fall # metabolic encephalopathy: patients history is a bit uncertain but sounds as though he was either found wandering the halls or found down, at any rate, noted to be confused, does not recall the events of the day and per his friend who knows him well unable to talk in the way in which he usually does all of which is an acute change from last night. ? infection versus other metabolic derangement--no focal neurologic findings, head ct not acute. Will get ecg/ trops and continue to monitor cultures. IVF given e/o dehydration, monitoring on tele, holding BP meds. # pyuria: with indwelling laws and hx of recurrent infection, UA not overtly infected but given his presentation this remains a concern, given ctx, urine cultures pending, will continue for now pending final culture data # HTN: per patients friend metoprolol dose recently doubled leading to increased falls and increased low BPs, will monitor off of antihypertensives for now given low BP for age (largely in the 110s systolic) could be contributing to presentation # hypovolemia: patient appears dry on exam, BP on the low end, BUN elevated ( though it has been in the past as well)--IVF overnight, holding BP meds # DM2: will start SSI, holding oral hypoglycemics # AF: with PPM/AICD and recent doubling of BB as above, will get ecg/monitor on tele # dementia: at baseline patient is independent although friend notes that he has been declining over the last several months, monitoring as above # IP status, will need > 48 hours stay for eval/mgmt of above Patient new to my care. Old records reviewed and summarized as above. Care plan reviewed with ER doctor as above.
[2018-03-29] MEDS ORDERED: D50W 25 GM/50 ML SYR IVP PRN (19:16)
[2018-03-29 19:49] LABS: INR 2.2 (0.83-1.16); PROTIME(PATIENT) 24.5 SEC (12.0-15.0)
[2018-03-29] MEDS ORDERED: traMADol 50 MG TAB PO PRN (23:41)
[2018-03-29] MEDS: GABAPENTIN 300 MG CAP PO SCH (23:53)
[2018-03-30 02:40] LABS: PLATELET COUNT 160 10^3/uL (150-400)
[2018-03-30 02:51] LABS: INR 2.11 (0.83-1.16); PROTIME(PATIENT) 23.7 SEC (12.0-15.0)
[2018-03-30] MEDS: NS 1,000 ML IV SCH ×2 (05:40→16:12)
[2018-03-30] MEDS ORDERED: ENOXAPARIN 40 MG/0.4 ML SYR SC SCH (09:00)
[2018-03-30] MEDS: INSULIN LISPRO 100 UNIT/ML SC SCH ×3 (09:02→18:27)
[2018-03-30] MEDS: GABAPENTIN 300 MG CAP PO SCH ×2 (10:49→20:13)
--- NOTE | 2018-03-30 11:37 | HOSPPROG ---
Hospitalist Progress Note Assessment/Plan: 82 yo M with PMH of DM2, AF, CAD, dementia, frequent UTIs and chronic indwelling lwas presenting with acute encephalopathy and possible fall. First encounter, chart reviewed. # metabolic encephalopathy: -in setting of infection -resolved -patients history is a bit uncertain but sounds as though he was either found wandering the halls or found down -noted to be confused -does not recall the events of the day # pyuria: - with indwelling laws and hx of recurrent infection -will need catheter changed prior to DC -UA not overtly infected -given ctx, -urine cultures pending, then transition to PO abx -will continue for now pending final culture data # HTN: -per patients friend metoprolol dose recently doubled leading to increased falls and increased low BPs, -will monitor off of antihypertensives for now given low BP for age -restart as needed # hypovolemia: -patient appears dry on exam -BP on the low end -BUN elevated (though it has been in the past as well) -IVF holding BP meds # DM2: -will start SSI -restart metformin # AF: -with PPM/AICD -recent doubling of BB as above -monitor on tele -will likely benefit from having BB restarted at lower dose # dementia: -mild -at baseline patient is independent # IP status, will need > 48 hours stay for eval/mgmt of above #Dispo -hope for return to independent living with [facility] -PT/OT eval -change catheter prior to dc Subjective: Up in chair. Worrie dabout where his wallet is. Feeling better. No issues. Objective: Vital Signs Temp Pulse Resp BP Pulse Ox 36.5 C 79 17 114/67 94 03/30/18 11:12 03/30/18 11:12 03/30/18 11:12 03/30/18 11:12 03/30/18 11:12 Laboratory Results 03/30/18 02:24 03/30/18 02:24 03/29/18 03/30/18 03/31/18 05:59 05:59 05:59 Intake Total 1673 Output Total 700 Balance 973 PT 23.7 SEC (12.0-15.0) H 03/30/18 02:24 INR 2.11 (0.83-1.16) H 03/30/18 02:24 - Physical Exam Constitutional: no apparent distress, appears nourished, not in pain Eyes: PERRL, anicteric sclera, EOMI Ears, Nose, Mouth, Throat: moist mucous membranes, hearing normal, ears appear normal Cardiovascular: irregularly irregular, No JVD, No edema Respiratory: no respiratory distress, no rales or rhonchi, reduced air movement Gastrointestinal: normoactive bowel sounds, No tenderness, No ascites Skin: warm, normal color, No mottled Musculoskeletal: normal joint ROM, no joint effusions, generalized weakness Neurologic: AAOx3 Psychiatric: interacting appropriately, not anxious, not encephalopathic, poor memory ICD10 Worksheet Patient Problems: Problems Problem Status Onset Chest pain Acute Altered mental status Acute TIA (transient ischemic attack) Acute UTI (urinary tract infection) Acute Dementia Acute Dehydration Acute
--- NOTE | 2018-03-30 11:50 | ASMTCMCOM ---
CM Note CM Note Notes: CM spoke to Anika Greene NP regarding d/c POC. Pt is 82 y/o man admitted for dehydration, UTI and dementia. Pt lives at [facility]. CM spoke w/ [place] at [facility] and provided updates. Pt will most likely dc tomorrow w/ HC services. Pt is current w/ [facility]. CM spoke to intake at [facility]. Pt is current w/ PT, OT, RN, [employer]. Therapies have been ordered and awaiting recommendations. CM spoke to Komal, friend/life partner. Komal reports that pt could stay w/ her after he discharges from the hospital. CM to follow. Plan: [facility]; PT, OT, RN, [employer] most likely Date Signed: 03/30/2018 11:50 AM Electronically Signed By:KATJA Hernandez
--- NOTE | 2018-03-30 12:06 | PDMN ---
Medical Necessity Medical necessity: [facility] M300 UTI, A-2 days: 82 yo presents w/ acute UTI w/ metabolic encephalopathy (infection vs other metabolic derangement). Pt does have hx dementia but this is noted as increased confusion per ILF and friend at bedside. Pt is hypovolemic. IVF and IV antibx started, cx pending, PT/OT evals , meets [facility] IP criteria for UTI w/ AMS. Anticipate>2MN for tx of the above. Hx afib, CAD, dementia, DMII (with associated peripheral neuorpathy), HTN, TIA, recurrent UTI, urinary retention w/ laws in place, gait instability, freq falls
--- NOTE | 2018-03-30 15:52 | CPEKG ---
Test Reason : OPEN Blood Pressure : / mmHG Vent. Rate : 070 BPM Atrial Rate : 000 BPM P-R Int : 076 ms QRS Dur : 158 ms QT Int : 456 ms P-R-T Axes : 000 -85 109 degrees QTc Int : 493 ms Afib/flut and V-paced complexes Confirmed by Clint Carbajal ([id number]) on 03/30/2018 3:52:38 PM Referred By: Pooja Pozo Confirmed By:Clint Carbajal
[2018-03-30] MEDS ORDERED: WARFARIN SODIUM 3 MG TAB PO SCH (16:00)
[2018-03-30] MEDS ORDERED: WARFARIN SODIUM 3 MG TAB PO ONE (16:00)
[2018-03-30] MEDS ORDERED: METOPROLOL TARTRATE 50 MG TAB PO SCH (21:00)
[2018-03-30] MEDS: SENNOSIDES/DOCUSATE SODIUM TAB PO SCH (21:40)
[2018-03-31 06:44] LABS: INR 1.68 (0.83-1.16); PROTIME(PATIENT) 19.9 SEC (12.0-15.0)
[2018-03-31] MEDS: SENNOSIDES/DOCUSATE SODIUM TAB PO SCH ×2 (07:50→20:09)
[2018-03-31] MEDS: metFORMIN HCL 500 MG TAB PO SCH (07:50)
[2018-03-31] MEDS: FUROSEMIDE 20 MG TAB PO SCH (07:50)
[2018-03-31] MEDS: GABAPENTIN 300 MG CAP PO SCH ×2 (07:51→20:09)
[2018-03-31] MEDS: INSULIN LISPRO 100 UNIT/ML SC SCH ×3 (09:41→18:11)
[2018-03-31] MEDS: NS 1,000 ML IV SCH (10:22)
--- NOTE | 2018-03-31 13:59 | HOSPPROG ---
Hospitalist Progress Note Assessment/Plan: 82 yo M with PMH of DM2, AF, CAD, dementia, frequent UTIs and chronic indwelling laws presenting with acute encephalopathy and possible fall. First encounter, chart reviewed. 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 Can likely dc tomorrow morning if his bp remains stable. Subjective: Jamey is feeling well. Objective: Vital Signs Temp Pulse Resp BP Pulse Ox 36.5 C 77 16 127/78 H 92 03/31/18 11:46 03/31/18 11:46 03/31/18 11:46 03/31/18 11:46 03/31/18 11:46 Laboratory Results 03/30/18 02:24 03/30/18 02:24 03/30/18 03/31/18 04/01/18 05:59 05:59 05:59 Intake Total 1673 2857 Output Total 700 2400 1700 Balance 973 457 -1700 PT 19.9 SEC (12.0-15.0) H 03/31/18 06:15 INR 1.68 (0.83-1.16) H 03/31/18 06:15 - Physical Exam Constitutional: appears nourished, not in pain Eyes: PERRL Ears, Nose, Mouth, Throat: hard of hearing Cardiovascular: regular rate and rhythym Respiratory: no respiratory distress Genitourinary: laws in urethra Skin: warm Musculoskeletal: generalized weakness Psychiatric: interacting appropriately, poor insight, poor memory ICD10 Worksheet Patient Problems: Problems Problem Status Onset Dehydration Acute Dementia Acute UTI (urinary tract infection) Acute Altered mental status Acute Chest pain Acute TIA (transient ischemic attack) Acute
--- NOTE | 2018-03-31 14:38 | ASMTCMCOM ---
CM Note CM Note Notes: CM spoke to Mayra Tang NP regarding d/c POC. CM met w/ pt for dispo planning. PT is recommending HC vs SNf. OT is recommending SNF. Pt is refusing SNF. Pt reports that he will dc home w/ Komal initially then go back to [facility]. CM to follow. 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
[2018-03-31] MEDS ORDERED: WARFARIN SODIUM 5 MG TAB PO ONE (16:00)
[2018-03-31] MEDS ORDERED: WARFARIN SODIUM 2 MG TAB PO SCH (16:00)
[2018-03-31] MEDS: METOPROLOL TARTRATE 25 MG TAB PO SCH (20:09)
[2018-04-01 05:40] LABS: INR 1.8 (0.83-1.16)
[2018-04-01] MEDS: METOPROLOL TARTRATE 25 MG TAB PO SCH (08:22)
[2018-04-01] MEDS: GABAPENTIN 300 MG CAP PO SCH (08:23)
[2018-04-01] MEDS: FUROSEMIDE 20 MG TAB PO SCH (08:23)
[2018-04-01] MEDS: metFORMIN HCL 500 MG TAB PO SCH (08:23)
[2018-04-01] MEDS: SENNOSIDES/DOCUSATE SODIUM TAB PO SCH (08:25)
[2018-04-01] MEDS: INSULIN LISPRO 100 UNIT/ML SC SCH ×2 (08:29→13:18)
--- NOTE | 2018-04-01 09:38 | HOSPPROG ---
Hospitalist Progress Note Assessment/Plan: 82 yo M with PMH of DM2, AF, CAD, dementia, frequent UTIs and chronic indwelling laws presenting with acute encephalopathy and possible fall. 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 Objective: Vital Signs Temp Pulse Resp BP Pulse Ox 36.6 C 75 13 147/98 H 94 04/01/18 04:00 04/01/18 04:00 04/01/18 04:00 04/01/18 04:00 04/01/18 04:00 Laboratory Results 03/30/18 02:24 03/30/18 02:24 03/31/18 04/01/18 04/02/18 05:59 05:59 05:59 Intake Total 2857 1450 Output Total 2400 4950 Balance 457 -3500 PT 21.0 SEC (12.0-15.0) H 04/01/18 05:15 INR 1.80 (0.83-1.16) H 04/01/18 05:15 - Physical Exam Constitutional: no apparent distress, appears nourished Eyes: PERRL Ears, Nose, Mouth, Throat: hearing normal Respiratory: no respiratory distress Skin: warm Musculoskeletal: generalized weakness Neurologic: AAOx3 Psychiatric: interacting appropriately, poor judgement, poor memory ICD10 Worksheet Patient Problems: Problems Problem Status Onset Dehydration Acute Dementia Acute UTI (urinary tract infection) Acute Altered mental status Acute Chest pain Acute TIA (transient ischemic attack) Acute
[2018-04-01 11:38] VITALS: BP 128/77
--- NOTE | 2018-04-01 12:00 | PDIAF ---
- Diagnosis Diagnosis: metabolic encephalopathy, uti, weakness, chronic laws placemetn Code Status: Full Code - Medication Management Discharge Medications: electronically signed and located in the Home Medication List. - Orders Services needed: Home Care, Registered Nurse, Physical Therapy, Occupational Therapy, Speech Language Pathologist Home Care Face to Face: I certify that this patient was under my care and that I had the required [id number] encounter meeting the encounter requirements on the discharge day. My findings support the fact that the patient is homebound as defined in Home Care Face to Face Continued: CMS Chapter 7 Medicare Benefits Manual 30.1.1 , The condition of the patient is such that there exists a normal inability to leave home and consequently, leaving home would require a considerable and taxing effort. Diet Recommendation: no restrictions on diet Diet Texture: Regular Texture Diet Additional Instructions: STOP METOPROLOL 50 MG BID, THIS HAS BEEN DECREASED TO 12.5 MG BID this dose was decreased because you are falling take the antibiotic starting tomorrow morning; you will be on this for the next 4 days follow up with your primary care doctor in 1-2 weeks if you develop fever, chills, frequent bout of diarrhea; call your primary care doctor immediately your prescriptions were sent to the [facility] on [address] - Follow Up Care Current Providers and Referrals: NONE *PRIMARY CARE P,. [Unknown] - As per Instructions
--- NOTE | 2018-04-01 13:48 | ASMTLACE ---
LACE Length of stay for Answers: 3 days current admission Acuity / Level of Answers: Yes Care: Did the patient have an inpatient admission? Comorbidities - select Answers: Cerebrovascular disease all that apply (CVA, TIA, aneurysms, vasc ular dementia) Coronary Artery Disease Dementia Diabetes (uncontrolled or controlled) Previous myocardial infarction Other Notes: HTN # of Emergency department Answers: 3-4 visits in the last 6 months Score: 18 Date Signed: 04/01/2018 01:48 PM Electronically Signed By:Maxine Park RN
--- NOTE | 2018-04-01 15:06 | ASMTDCNOTE ---
Case Management Discharge Discharge Order Complete? Answers: Yes Patient to Obtain Answers: Independently Medications Transportation Arranged Answers: Family/Friends Faxed Final Orders Answers: Yes Agency/Facility Transfer Answers: Yes Report Printed & Faxed to Receiving Agency Discharge Comments Notes: D/w MEDICAL DOCTOR MD, pt refuses to go to SNF. Pt is current with [facility], they have been notified that pt will be staying with Adeline, his friend, until Friday and that the HC RN should schedule with her for 1st visit. Address and phone number given. Date Signed: 04/01/2018 02:56 PM Electronically Signed By:Maxine Park RN
--- NOTE | 2018-04-01 16:46 | ASDISCHSUM ---
Discharge Information Plan Status:Home with Home Health Medically Cleared to Leave: Discharge Date:04/01/2018 03:10 PM CM D/C Disposition:Home Health Service ADT D/C Disposition:Home Health Service Projected Discharge Date:03/30/2018 11:00 AM Transportation at D/C:Friend Discharge Delay Reason: Follow-Up Date:03/30/2018 11:00 AM Discharge Slot: Final Diagnosis: Placement Information Referral Type:*Home Health Care Services Referral ID:[id number] Provider Name:[facility] Address 1:[address] Address 2: City:[place] Selection Factors: State:[place] Patient Contact Information Contact Name:YANIRA Relationship:Friend Address: Work Phone: [address] [facility] Alternate Phone: State/Zip Code:[place] [address] Email: Financial Information Financial Class:Medicare Primary Plan Desc:MEDICARE INPATIENT Primary Plan Number:[id number] Secondary Plan Desc:[facility] Secondary Plan Number:[id number] Assessment Information [facility] CM Progress Note CM Note CM Note Notes: CM spoke to Anika Greene NP regarding d/c POC. Pt is 82 y/o man admitted for dehydration, UTI and dementia. Pt lives at [facility]. CM spoke w/ Gilbert at [facility] and provided updates. Pt will most likely dc tomorrow w/ HC services. Pt is current w/ [facility]. CM spoke to intake at [facility]. Pt is current w/ PT, OT, RN, PORCELAIN BUILDUP ASSISTANT. Therapies have been ordered and awaiting recommendations. CM spoke to Komal, friend/life partner. Komal reports that pt could stay w/ her after he discharges from the hospital. CM to follow. Plan: [facility]; PT, OT, RN, PORCELAIN BUILDUP ASSISTANT most likely Date Signed: 03/30/2018 11:50 AM Electronically Signed By:KATJA Hernandez LACE LACE Length of stay for Answers: 3 days current admission Acuity / Level of Answers: Yes Care: Did the patient have an inpatient admission? Comorbidities - select Answers: Cerebrovascular disease all that apply (CVA, TIA, aneurysms, vasc ular dementia) Coronary Artery Disease Dementia Diabetes (uncontrolled or controlled) Previous myocardial infarction Other Notes: HTN # of Emergency department Answers: 3-4 visits in the last 6 months Score: 18 Date Signed: 04/01/2018 01:48 PM Electronically Signed By:Maxine Park RN [facility] Progress Note CM Note CM Note Notes: CM spoke to Mayra Tang NP regarding d/c POC. CM met w/ pt for dispo planning. PT is recommending HC vs SNf. OT is recommending SNF. Pt is refusing SNF. Pt reports that he will dc home w/ Komal initially then go back to [facility]. CM to follow. Plan: [facility]; PT, OT, RN, PORCELAIN BUILDUP ASSISTANT Date Signed: 03/31/2018 02:37 PM Electronically Signed By:KATJA Hernandez Case Management Discharge Plan Note Case Management Discharge Discharge Order Complete? Answers: Yes Patient to Obtain Answers: Independently Medications Transportation Arranged Answers: Family/Friends Faxed Final Orders Answers: Yes Agency/Facility Transfer Answers: Yes Report Printed & Faxed to Receiving Agency Discharge Comments Notes: D/w THERAPIST ASST, pt refuses to go to SNF. Pt is current with [facility], they have been notified that pt will be staying with Adeline, his friend, until Friday and that the HC RN should schedule with her for 1st visit. Address and phone number given. Date Signed: 04/01/2018 02:56 PM Electronically Signed By:Maxine Park RN Intervention Information
--- NOTE | 2018-04-01 18:10 | GDS ---
[f rep st] DISCHARGE SUMMARY DISCHARGE DIAGNOSES: 1. Acute on chronic metabolic encephalopathy. 2. Urinary tract infection due to indwelling catheter. 3. Hypertension. 4. Hypovolemia. 5. Diabetes type 2. 6. Atrial fibrillation. 7. Dementia. HISTORY OF PRESENT ILLNESS: Briefly, the patient is an 82-year-old gentleman with a past medical his tory of diabetes type 2, atrial fibrillation, coronary artery disease, dementia, and frequent UTIs an d chronic indwelling Goodwin, who presented to the emergency room with acute encephalopathy and possibl e fall. Recently, his metoprolol dose had been increased up to 50 mg b.i.d. for AFib, but his blood pressure dropped significantly and was likely causing him to fall. This dose was decreased. He has tolerated the lower dose. He will be discharged today with home care and he will be staying with his significant other. HOSPITAL COURSE: 1. Acute on chronic metabolic encephalopathy. He has underlying cognitive issues, but he is back to his baseline. This is likely due to a urinary tract infection. 2. Urinary tract infection, likely due to indwelling catheter. His urine culture showed klebsiella. He was treated with ceftriaxone. He will be discharged home on Keflex. 3. Hypertension. He usually takes metoprolol 50 mg b.i.d. for AFib, but this dose was decreased to 12.5 b.i.d. This was done because of hypotension. He has tolerated the lower dose, and his heart ra te has been well controlled. 4. Hypovolemic, resolved. 5. Diabetes type 2, on metformin. 6. Atrial fibrillation. I reviewed the equipment monitor phototypesetting. He is in a ventricular paced rhythm. He has a permanent pacemaker as well as an AICD. He is also on oral anticoagulation. His INR is subth erapeutic. 7. Dementia. This is ongoing. His significant other will be staying with him. DISCHARGE CONDITION: Stable. Blood pressure is 128/77, heart rate of 81, respiratory rate of 20, O2 sats on room air 95%, temperature is 36.6 Celsius. MEDICATIONS AT DISCHARGE: Please see the EMR. DISCHARGE INSTRUCTIONS: 1. To note, his metoprolol dose has been changed to 12.5 mg b.i.d. 2. To get his INR checked as he has done prior to this admission. 3. If he develops fever, chills, chest pain, shortness of breath, return to the ER. Greater than 30 minutes discharging and coordinating the patient's care. /[id number]/MODL
== END 2018-04-01 15:10 | disposition home health service (06) | DRG 698 ==
LOC: EDUNIT# → F3E 16:58
PROVIDERS: ADMIT Internal Medicine; ATTEND Internal Medicine
DX: T83.518A Infection and inflammatory reaction due to other urinary catheter, initial encounter (principal); G93.41 Metabolic encephalopathy; B96.1 Klebsiella pneumoniae [K. pneumoniae] as the cause of diseases classified elsewhere; E86.0 Dehydration; E86.1 Hypovolemia; F03.90 Unspecified dementia, unspecified severity, without behavioral disturbance, psychotic disturbance, mood disturbance, and anxiety; I10 Essential (primary) hypertension; E11.9 Type 2 diabetes mellitus without complications; I48.91 Unspecified atrial fibrillation; I25.10 Atherosclerotic heart disease of native coronary artery without angina pectoris; Z79.84 Long term (current) use of oral hypoglycemic drugs; Z95.810 Presence of automatic (implantable) cardiac defibrillator
CPT/HCPCS: 96365; 97161-GP; 97166-GO; 97530-GP; 97535-GO; J0696

== ENCOUNTER 2018-04-28 15:41 | Inpatient (IN) | payer OTHER ==
--- NOTE | 2018-04-28 15:58 | EDPHY ---
H & P Time Seen by Provider: 04/28/18 15:53 HPI/ROS: CHIEF COMPLAINT: Altered mental status HISTORY OF PRESENT ILLNESS: The patient is an 82-year-old man with a history of dementia as well as chronic indwelling Goodwin catheter atrial fibrillation on Coumadin and type 2 diabetes. [facility] concerned that he seemed more confused than usual. He was admitted in March for acute on chronic encephalopathy thought to be due to urinary tract infection. At that time his urine was positive for Klebsiella and he was treated successfully with Rocephin and Keflex. There was some concern at the clinic today that he may have had a fever and his friend had told them that he may have been taking too many of his atenolol. For us the patient is able to answer questions appropriately. He is able to move all extremities. He does seem slightly weak in general. Patient has no complaints. Does have a small abrasion to his upper lip and chin. He denies falls or injury. He denies pain. He denies recent illness. Severity: Moderate Modifying factors: None REVIEW OF SYSTEMS: Constitutional: denies: chills, fever, recent illness, recent injury EENTM: denies: blurred vision, double vision, nose congestion Respiratory: denies: cough, shortness of breath Cardiac: denies: chest pain, irregular heart rate, lightheadedness, palpitations Gastrointestinal/Abdominal: denies: abdominal pain, diarrhea, nausea, vomiting, blood streaked stools Genitourinary: denies: dysuria, frequency, hematuria, pain Musculoskeletal: denies: joint pain, muscle pain Skin: denies: lesions, rash, jaundice, bruising Neurological: denies: headache, numbness, paresthesia, tingling, dizziness, weakness Hematologic/Lymphatic: denies: blood clots, easy bleeding, easy bruising Immunologic/allergic: denies: HIV/AIDS, transplant 10 systems reviewed and negative except as noted EXAM: GENERAL: No acute distress, no complaints. HEAD: Atraumatic, normocephalic. EYES: Pupils equal round and reactive to light, extraocular movements intact, sclera anicteric, conjunctiva are normal. ENT: Small amount of blood on the patient's tooth which appears to be from a crack in his lips from dryness. Very small abrasion to his left chin. TMs normal, nares patent, oropharynx clear without exudates. Moist mucous membranes. NECK: Normal range of motion, supple without lymphadenopathy or JVD. LUNGS: Breath sounds clear to auscultation bilaterally and equal. No wheezes rales or rhonchi. HEART: Regular rate and rhythm without murmurs, rubs or gallops. ABDOMEN: Soft, nontender, normoactive bowel sounds. No guarding, no rebound. No masses appreciated. Goodwin catheter in place with leg bag BACK: No CVA tenderness, no spinal tenderness, step-offs or deformities EXTREMITIES: Normal range of motion, no pitting or edema. No clubbing or cyanosis. NEUROLOGICAL: Cranial nerves II through XII grossly intact. Normal speech, normal gait. 5/5 strength, normal movement in all extremities, normal sensation , normal reflexes PSYCH: Normal mood, normal affect. SKIN: Warm, dry, normal turgor, no visible rashes or lesions. Source: Patient, EMS Exam Limitations: Clinical condition - Personal History Tetanus Vaccine Date: WITHIN 10 YRS - Medical/Surgical History Hx Asthma: Yes Hx Chronic Respiratory Disease: No Hx Diabetes: No Hx Cardiac Disease: Yes Hx Renal Disease: No Hx Cirrhosis: No Hx Alcoholism: No Hx HIV/AIDS: No Hx Splenectomy or Spleen Trauma: No Other PMH: HTN, MIx1, angiogram,Pacer, cardiac cath, hernia repair, bladder complications w/ qid cath, fx uti's, atrial fibrillation, neuropathy, 'mild' diabetes, dementia - Family History Significant Family History: No pertinent family hx - Social History Smoking Status: Never smoked Alcohol Use: None Constitutional: Initial Vital Signs Temperature (C) 36.8 C 04/28/18 15:52 Heart Rate 81 04/28/18 15:52 Respiratory Rate 16 04/28/18 15:52 Blood Pressure 132/82 H 04/28/18 15:52 O2 Sat (%) 92 04/28/18 15:52 O2 Delivery Mode Room Air Allergies/Adverse Reactions: levofloxacin [From Levaquin] Allergy (Severe, Verified 04/28/18 15:49) DELIRIUM CHICKEN FEATHERS Allergy (Mild, Uncoded 04/28/18 15:49) TESTED POSITIVE DUST Allergy (Mild, Uncoded 04/28/18 15:49) TESTED POSITIVE Home Medications: Medication Instructions Recorded Furosemide [Lasix 20 MG (*)] 20 mg PO DAILY 12/09/13 metFORMIN HCL [Metformin HCl] 500 mg PO DAILY 02/27/17 Warfarin Sodium 3 mg PO MOTUTHSA@11/25/17 Gabapentin [Neurontin 300 MG (*)] 300 mg PO BID 03/29/18 Warfarin Sodium [Coumadin 2MG (*)] 2 mg PO SUWEFR@03/29/18 Acetaminophen [Tylenol 325mg (*)] 650 mg PO Q4HRS PRN tab 04/01/18 Sennosides/Docusate Sodium 1 tab PO DAILY 04/28/18 [Senokot-S] Medical Decision Making - Diagnostics EKG Interpretation: An EKG obtained and was read and documented in trace view. Please see trace view for full reading and report. Ventricular paced rhythm rate 75 Imaging Results: Imaging Impressions Chest X-Ray 04/28/18 15:52 Impression: 1. Mild elevation left hemidiaphragm with adjacent compressive atelectatic change. 2. No active cardiac pulmonary disease appreciated. Head CT 04/28/18 16:27 Impression: 1. No acute intracranial findings. 2. Diffuse cerebral atrophy with periventricular and subcortical low attenuation consistent with chronic microvascular ischemic gliosis. Findings discussed with AGUSTIN SUGGS 04/28/2018 at 17:10. Imaging: Discussed imaging studies w/ yardage caller Radiologist ED Course/Re-evaluation: Patient is afebrile here. He has stable heart rate and blood pressure. He is without complaint. He does seem slightly confused but is able to answer questions appropriately. We are awaiting friends arrival. Will initiate septic workup. Head CT ordered in this adult patient for trauma for the following indication: Anticoagulated, greater than 65 years old with mild facial trauma Patient's urinalysis is positive. Will send for cultures. Will start on antibiotics as recommended by ID for catheter associated urinary tract infections. I discussed the case with hospitalist who will admit. Differential Diagnosis: Partial list of the Differential diagnosis considered include but were not limited to; urinary tract infection, sepsis, and although unlikely based on the history and physical exam, I also considered pneumonia, head injury, medication overdose. Critical Care Time: Critical care time spent by me, Dr. Suggs exclusive with this patient was 35 minutes, exclusive of the PA time exclusive of procedures. The organ system that was at risk was hematologic and I gave IV fluids, antibiotics, consultation and admission to prevent worsening of the patient's condition - Data Points Laboratory Results: Laboratory Results 04/28/18 15:45 04/28/18 15:45 04/28/18 04/28/18 04/28/18 17:00 16:35 15:45 WBC RBC Hgb Hct MCV MCH MCHC RDW Plt Count MPV Neut % (Auto) Lymph % (Auto) [place] % (Auto) Eos % (Auto) Baso % (Auto) Nucleat RBC Rel Count Absolute Neuts (auto) Absolute Lymphs (auto) Absolute Monos (auto) Absolute Eos (auto) Absolute Basos (auto) Absolute Nucleated RBC Immature Gran % Immature Gran # PT 21.6 SEC H SEC (12.0-15.0) INR 1.87 H (0.83-1.16) APTT 40.8 SEC H SEC (23.0-38.0) VBG Lactic Acid 1.5 mmol/L mmol/L (0.7-2.1) Sodium Potassium Chloride Carbon Dioxide Anion Gap BUN Creatinine Estimated GFR Glucose Calcium Total Bilirubin Urine Color YELLOW Urine Appearance MODERATELY TURBID Urine pH 5.0 (5.0-7.5) Ur Specific [place] 1.015 (1.002-1.030) Urine Protein 1+ H (NEGATIVE) Urine Ketones NEGATIVE (NEGATIVE) Urine Blood 3+ H (NEGATIVE) Urine Nitrate POSITIVE H (NEGATIVE) Urine Bilirubin NEGATIVE (NEGATIVE) Urine Urobilinogen NEGATIVE EU EU (0.2-1.0) Ur Leukocyte Esterase 3+ H (NEGATIVE) Urine RBC 50-182 /hpf H /hpf (0-3) Urine WBC 50-182 /hpf H /hpf (0-3) Ur Epithelial Cells TRACE /lpf /lpf (NONE-1+) Urine Bacteria 3+ /hpf H /hpf (NONE SEEN) Hyaline Casts 15-25 /lpf H /lpf (0-1) Urine Mucus 2+ /lpf H /lpf (NONE-1+) Urine Glucose NEGATIVE (NEGATIVE) 04/28/18 04/28/18 15:45 15:45 WBC 10.88 10^3/uL H 10^3/uL (3.80-9.50) RBC 4.81 10^6/uL 10^6/uL (4.40-6.38) Hgb 14.8 g/dL g/dL (13.7-17.5) Hct 43.1 % % (40.0-51.0) MCV 89.6 fL fL (81.5-99.8) MCH 30.8 pg pg (27.9-34.1) MCHC 34.3 g/dL g/dL (32.4-36.7) RDW 13.5 % % (11.5-15.2) Plt Count 227 10^3/uL 10^3/uL (150-400) MPV 10.9 fL fL (8.7-11.7) Neut % (Auto) 83.8 % H % (39.3-74.2) Lymph % (Auto) 7.9 % L % (15.0-45.0) Louis[place] % (Auto) 7.3 % % (4.5-13.0) Eos % (Auto) 0.5 % L % (0.6-7.6) Baso % (Auto) 0.2 % L % (0.3-1.7) Nucleat RBC Rel Count 0.0 % % (0.0-0.2) Absolute Neuts (auto) 9.13 10^3/uL H 10^3/uL (1.70-6.50) Absolute Lymphs (auto) 0.86 10^3/uL L 10^3/uL (1.00-3.00) Absolute Monos (auto) 0.79 10^3/uL 10^3/uL (0.30-0.80) Absolute Eos (auto) 0.05 10^3/uL 10^3/uL (0.03-0.40) Absolute Basos (auto) 0.02 10^3/uL 10^3/uL (0.02-0.10) Absolute Nucleated RBC 0.00 10^3/uL 10^3/uL (0-0.01) Immature Gran % 0.3 % % (0.0-1.1) Immature Gran # 0.03 10^3/uL 10^3/uL (0.00-0.10) PT INR APTT VBG Lactic Acid Sodium 136 mEq/L mEq/L (135-145) Potassium 4.6 mEq/L mEq/L (3.5-5.2) Chloride 101 mEq/L mEq/L (97-110) Carbon Dioxide 27 mEq/l mEq/l (22-31) Anion Gap 8 mEq/L mEq/L (6-14) BUN 24 mg/dL H mg/dL (7-23) Creatinine 0.9 mg/dL mg/dL (0.7-1.3) Estimated GFR > 60 Glucose 106 mg/dL H mg/dL (70-100) Calcium 9.5 mg/dL mg/dL (8.5-10.4) Total Bilirubin 1.0 mg/dL mg/dL (0.1-1.4) Urine Color Urine Appearance Urine pH Ur Specific [place] Urine Protein Urine Ketones Urine Blood Urine Nitrate Urine Bilirubin Urine Urobilinogen Ur Leukocyte Esterase Urine RBC Urine WBC Ur Epithelial Cells Urine Bacteria Hyaline Casts Urine Mucus Urine Glucose Medications Given: Sodium Chloride (Ns) 2,700 mls @ 450 mls/hr 30 ml/kg infuse over 6 hr (2700 ml ) IV EDNOW ONE PRN Reason: Protocol Stop: 04/28/18 23:47 Last Admin: 04/28/18 17:58 Dose: 2,700 mls Discontinued Medications Piperacillin/Tazobactam/Dextrose (Zosyn (Premix)) 100 mls @ 200 mls/hr IV EDNOW ONE PRN Reason: Protocol Stop: 04/28/18 18:29 Last Admin: 04/28/18 18:36 Dose: 100 mls Vancomycin HCl 1.25 gm/ Sodium (Chloride) 250 mls @ 166.667 mls/hr IV EDNOW ONE Stop: 04/28/18 19:29 Last Admin: 04/28/18 18:36 Dose: 250 mls Departure - Departure Disposition: [facility] Inpatient Acute Clinical Impression: UTI (urinary tract infection) Qualifiers: Urinary tract infection type: catheter-associated UTI Indwelling urinary catheter type: indwelling urethral catheter Encounter type: initial encounter Qualified Code(s): T83.511A - Infection and inflammatory reaction due to indwelling urethral catheter, initial encounter; N39.0 - Urinary tract infection , site not specified; N39.0 - Urinary tract infection, site not specified Dementia Qualifiers: Dementia type: unspecified type Dementia behavioral disturbance: without behavioral disturbance Qualified Code(s): F03.90 - Unspecified dementia without behavioral disturbance Condition: Fair
[2018-04-28 16:46] LABS: PLATELET COUNT 227 10^3/uL (150-400)
[2018-04-28 16:59] LABS: INR 1.87 (0.83-1.16); PROTIME(PATIENT) 21.6 SEC (12.0-15.0)
[2018-04-28] MEDS ORDERED: NS 2,700 ML IV ONE (17:48)
--- NOTE | 2018-04-28 17:50 | CPEKG ---
Test Reason : OPEN Blood Pressure : / mmHG Vent. Rate : 075 BPM Atrial Rate : 144 BPM P-R Int : 075 ms QRS Dur : 158 ms QT Int : 438 ms P-R-T Axes : 000 261 097 degrees QTc Int : 490 ms Ventricular-paced complexes Confirmed by Agustin Suggs ([id number]) on 04/28/2018 5:49:49 PM Referred By: AGUSTIN SUGGS Confirmed By:Agustin Suggs
[2018-04-28] MEDS ORDERED: PIPERACILLIN/TAZO 4.5 GM/DEX 100 ML IV ONE (18:00)
[2018-04-28] MEDS ORDERED: VANCOMYCIN 1.25 GM in NS 250 ML IV ONE (18:00)
[2018-04-28] MEDS ORDERED: PIPERACILLIN/TAZO 4.5 GM/DEX 100 ML IV SCH (18:00)
[2018-04-28] MEDS ORDERED: ONDANSETRON DISINTEGRATING 4 MG TAB PO PRN (20:32)
[2018-04-28] MEDS ORDERED: ONDANSETRON 4 MG/2 ML VIAL IVP PRN (20:32)
[2018-04-28] MEDS ORDERED: D50W 25 GM/50 ML SYR IVP PRN (20:44)
[2018-04-28] MEDS ORDERED: NS 1,000 ML IV SCH (20:45)
--- NOTE | 2018-04-28 20:50 | PDGENHP ---
History and Physical - Chief Complaint Confusion - History of Present Illness The patient is an 82-year-old man with past medical history of type 2 diabetes, atrial fibrillation, coronary artery disease, dementia and frequent UTIs with a chronic indwelling Laws who was brought to the emergency room from his assisted living facility after he was noted to be more confused. He was just here in late March for essentially the same thing. Currently he has no complaints. He is oriented to year, name, place but does not know the day of the week. He denies any dysuria or abdominal pain. He denies any cough, fevers , chest pain, headaches or really any other complaints. History Information - Allergies/Home Medication List Allergies/Adverse Reactions: levofloxacin [From Levaquin] Allergy (Severe, Verified 04/28/18 15:49) DELIRIUM CHICKEN FEATHERS Allergy (Mild, Uncoded 04/28/18 15:49) TESTED POSITIVE DUST Allergy (Mild, Uncoded 04/28/18 15:49) TESTED POSITIVE Home Medications: Furosemide [Lasix 20 MG (*)] 20 mg PO DAILY 12/09/13 [Last Taken 04/28/18] metFORMIN HCL [Metformin HCl] 500 mg PO DAILY 02/27/17 [Last Taken 04/28/18] Warfarin Sodium 3 mg PO SUTUWEFR@11/25/17 [Last Taken 04/26/18] Gabapentin [Neurontin 300 MG (*)] 300 mg PO BID 03/29/18 [Last Taken 04/28/18 09 :00] Warfarin Sodium [Coumadin 2MG (*)] 2 mg PO MOTHSA@21 03/29/18 [Last Taken ] Sennosides/Docusate Sodium [Senokot-S] 1 tab PO DAILY 04/28/18 [Last Taken Unknown] I have personally reviewed and updated: family history, medical history, social history, surgical history - Past Medical History atrial fibrillation, coronary artery disease, dementia, 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 gait instability and frequent falls - Surgical History Reports: hernia repair, pacemaker/AICD - Family History Positive for: non-pertinent Additional family history: Asked, unable to provide - Social History Smoking Status: Never smoked Additional social history: resides at [facility], has a group home friend/girlfriend very involved in his care present at bedside Review of Systems Review of Systems: ROS: 10pt was reviewed & negative except for what was stated in HPI & below Physical Exam Physical Exam: Temp Pulse Resp BP Pulse Ox 37.1 C 75 16 118/78 94 04/28/18 20:28 04/28/18 20:28 04/28/18 20:28 04/28/18 20:28 04/28/18 20:28 Constitutional: no apparent distress, appears nourished, not in pain Eyes: PERRL, anicteric sclera, EOMI Ears, Nose, Mouth, Throat: moist mucous membranes, hearing normal, ears appear normal, no oral mucosal ulcers Cardiovascular: regular rate and rhythym, no murmur, rub, or gallop, No edema Respiratory: no respiratory distress, no rales or rhonchi, clear to auscultation Gastrointestinal: normoactive bowel sounds, soft, non-tender abdomen, no palpable masses Genitourinary: no bladder fullness, no bladder tenderness, laws in urethra Skin: warm, normal color, no rashes or abrasions, no fluctuance, no induration, No mottled Musculoskeletal: full muscle strength, no muscle tenderness, normal joint ROM, no joint effusions Psychiatric: interacting appropriately, not anxious, not encephalopathic, thought process linear Lymph, Heme, Immunologic: no cervical LAD, no supraclavicular LAD Lab Data & Imaging Review 04/28/18 15:45 04/28/18 15:45 WBC 10.88 10^3/uL (3.80-9.50) H 04/28/18 15:45 RBC 4.81 10^6/uL (4.40-6.38) 04/28/18 15:45 Hgb 14.8 g/dL (13.7-17.5) 04/28/18 15:45 Hct 43.1 % (40.0-51.0) 04/28/18 15:45 MCV 89.6 fL (81.5-99.8) 04/28/18 15:45 MCH 30.8 pg (27.9-34.1) 04/28/18 15:45 MCHC 34.3 g/dL (32.4-36.7) 04/28/18 15:45 RDW 13.5 % (11.5-15.2) 04/28/18 15:45 Plt Count 227 10^3/uL (150-400) 04/28/18 15:45 MPV 10.9 fL (8.7-11.7) 04/28/18 15:45 Neut % (Auto) 83.8 % (39.3-74.2) H 04/28/18 15:45 Lymph % (Auto) 7.9 % (15.0-45.0) L 04/28/18 15:45 [place] % (Auto) 7.3 % (4.5-13.0) 04/28/18 15:45 Eos % (Auto) 0.5 % (0.6-7.6) L 04/28/18 15:45 Baso % (Auto) 0.2 % (0.3-1.7) L 04/28/18 15:45 Nucleat RBC Rel Count 0.0 % (0.0-0.2) 04/28/18 15:45 Absolute Neuts (auto) 9.13 10^3/uL (1.70-6.50) H 04/28/18 15:45 Absolute Lymphs (auto) 0.86 10^3/uL (1.00-3.00) L 04/28/18 15:45 Absolute Monos (auto) 0.79 10^3/uL (0.30-0.80) 04/28/18 15:45 Absolute Eos (auto) 0.05 10^3/uL (0.03-0.40) 04/28/18 15:45 Absolute Basos (auto) 0.02 10^3/uL (0.02-0.10) 04/28/18 15:45 Absolute Nucleated RBC 0.00 10^3/uL (0-0.01) 04/28/18 15:45 Immature Gran % 0.3 % (0.0-1.1) 04/28/18 15:45 Immature Gran # 0.03 10^3/uL (0.00-0.10) 04/28/18 15:45 PT 21.6 SEC (12.0-15.0) H 04/28/18 15:45 INR 1.87 (0.83-1.16) H 04/28/18 15:45 APTT 40.8 SEC (23.0-38.0) H 04/28/18 15:45 VBG Lactic Acid 1.5 mmol/L (0.7-2.1) 04/28/18 16:35 Sodium 136 mEq/L (135-145) 04/28/18 15:45 Potassium 4.6 mEq/L (3.5-5.2) 04/28/18 15:45 Chloride 101 mEq/L (97-110) 04/28/18 15:45 Carbon Dioxide 27 mEq/l (22-31) 04/28/18 15:45 Anion Gap 8 mEq/L (6-14) 04/28/18 15:45 BUN 24 mg/dL (7-23) H 04/28/18 15:45 Creatinine 0.9 mg/dL (0.7-1.3) 04/28/18 15:45 Estimated GFR > 60 04/28/18 15:45 Glucose 106 mg/dL (70-100) H 04/28/18 15:45 Calcium 9.5 mg/dL (8.5-10.4) 04/28/18 15:45 Total Bilirubin 1.0 mg/dL (0.1-1.4) 04/28/18 15:45 Urine Color YELLOW 04/28/18 17:00 Urine Appearance MODERATELY TURBID 04/28/18 17:00 Urine pH 5.0 (5.0-7.5) 04/28/18 17:00 Ur Specific [place] 1.015 (1.002-1.030) 04/28/18 17:00 Urine Protein 1+ (NEGATIVE) H 04/28/18 17:00 Urine Ketones NEGATIVE (NEGATIVE) 04/28/18 17:00 Urine Blood 3+ (NEGATIVE) H 04/28/18 17:00 Urine Nitrate POSITIVE (NEGATIVE) H 04/28/18 17:00 Urine Bilirubin NEGATIVE (NEGATIVE) 04/28/18 17:00 Urine Urobilinogen NEGATIVE EU (0.2-1.0) 04/28/18 17:00 Ur Leukocyte Esterase 3+ (NEGATIVE) H 04/28/18 17:00 Urine RBC 50-182 /hpf (0-3) H 04/28/18 17:00 Urine WBC 50-182 /hpf (0-3) H 04/28/18 17:00 Ur Epithelial Cells TRACE /lpf (NONE-1+) 04/28/18 17:00 Urine Bacteria 3+ /hpf (NONE SEEN) H 04/28/18 17:00 Hyaline Casts 15-25 /lpf (0-1) H 04/28/18 17:00 Urine Mucus 2+ /lpf (NONE-1+) H 04/28/18 17:00 Urine Glucose NEGATIVE (NEGATIVE) 04/28/18 17:00 Assessment & Plan Assessment: Acute on chronic encephalopathy- patient was just here for the exact same thing was thought to be due to urinary tract infection. His urine is consistent with infection currently although he does have a chronic indwelling Laws so it makes interpretation difficult. He has a mild white count and given his confusion it is reasonable to treat him for an underlying cystitis. I reviewed his chart and previous admission grew out Klebsiella which was sensitive to ceftriaxone. I discussed the case with the emergency room physician and he was given vancomycin and Zosyn in the emergency room. I reviewed the CT of his head and find no acute abnormality. -treat underlying UTI -minimize sedating medications UTI (urinary tract infection) (Acute)- urinalysis consistent with infection. Patient has a chronic indwelling Laws. Recently here for the same thing and treated for a Klebsiella pneumoniae infection with Rocephin. Culture showed Klebsiella that was sensitive to ceftriaxone. He was given vancomycin and Rocephin by the emergency room physician. -urine culture -Rocephin 1 g daily -consider changing catheter AFib- appears on his previous admission his metoprolol was decreased to episodes hypotension. His medications have been reconciled in the looks like Lopressor may have been stopped altogether. He is still on Coumadin however and his INR is just slightly subtherapeutic at 1.9. -continue Coumadin -monitor on tele Diabetes type 2- takes metformin. -sliding scale insulin -hold metformin Prophylaxis- SCDs and Coumadin Fluids- IV saline Electrolytes- within normal limits Nutrition- regular diet Cor- full Dispo- observation encephalopathy and possible cystitis
[2018-04-28] MEDS ORDERED: WARFARIN SODIUM 3 MG TAB PO SCH (22:15)
[2018-04-28] MEDS: WARFARIN SODIUM 3 MG TAB PO SCH (22:17)
[2018-04-29] MEDS: ACETAMINOPHEN 325 MG TAB PO PRN (01:25)
[2018-04-29 05:14] LABS: INR 2.29 (0.83-1.16); PROTIME(PATIENT) 25.2 SEC (12.0-15.0)
[2018-04-29 05:19] LABS: PLATELET COUNT 169 10^3/uL (150-400)
[2018-04-29] MEDS: INSULIN LISPRO 100 UNIT/ML SC SCH ×3 (08:39→18:23)
--- NOTE | 2018-04-29 09:58 | HOSPPROG ---
Hospitalist Progress Note Assessment/Plan: 82 yo male with chronic indwelling laws and dementia who lives at assisted living admitted with acute encephalopathy due to UTI and dehydration. #Acute Metabolic Encephalopathy -resolving #Dehydration: resolved #UTI in setting of chronic indwelling catheter #pAfib #chronic AC #Generalized Weakness #Dementia #DMII Plan: The patient is improving Keep overnight tonight (make inpatient) with anticipated d/c tomorrow pending urine culture identification and sensitivities Cont Rocephin Day 2 Change Laws if not already done during this hospitalization PT/OT eval today Trial off IVF today Pharmacy is dosing Warfarin. INR is therapeutic cont ISS, hold Metformin Subjective: feels better. Cognition much improved. Still on IV fluids. Does not recall events yesterday. no cp or sob. Objective: Vital Signs Temp Pulse Resp BP Pulse Ox 36.4 C 79 16 137/90 H 95 04/29/18 08:00 04/29/18 08:00 04/29/18 08:00 04/29/18 08:00 04/29/18 08:00 Laboratory Results 04/29/18 04:29 04/29/18 04:29 04/28/18 04/29/18 04/30/18 05:59 05:59 05:59 Intake Total 2845 Output Total 600 350 Balance 2245 -350 PT 25.2 SEC (12.0-15.0) H 04/29/18 04:29 INR 2.29 (0.83-1.16) H 04/29/18 04:29 - Physical Exam Constitutional: no apparent distress Eyes: PERRL, EOMI Ears, Nose, Mouth, Throat: moist mucous membranes Cardiovascular: regular rate and rhythym, No edema Respiratory: no respiratory distress, no rales or rhonchi, clear to auscultation Gastrointestinal: normoactive bowel sounds, soft, non-tender abdomen Skin: warm Musculoskeletal: generalized weakness Psychiatric: interacting appropriately, not anxious, encephalopathic Lymph, Heme, Immunologic: No petechiae ICD10 Worksheet Patient Problems: Problems Problem Status Onset Dementia Acute UTI (urinary tract infection) Acute Altered mental status Acute Chest pain Acute Dehydration Acute TIA (transient ischemic attack) Acute
--- NOTE | 2018-04-29 15:36 | ASMTCMCOM ---
CM Note CM Note Notes: Met with pt to discuss dc poc. PT/OT recommend SNF, pt does not want to go. States, he's been home for 2 months without falling. At times pt seems confused but will not agree to SNF. When asked if he could go to SO home, he says he doesn't not want to put that on her. Pt agrees to home care, he is current with [facility] Plan: Home care/ [facility] Date Signed: 04/29/2018 03:35 PM Electronically Signed By:Maxine Park RN
[2018-04-29] MEDS: WARFARIN SODIUM 2 MG TAB PO SCH (20:02)
[2018-04-30 05:21] LABS: INR 2.23 (0.83-1.16); PROTIME(PATIENT) 23.6 SEC (12.0-15.0)
--- NOTE | 2018-04-30 07:48 | PDMN ---
Medical Necessity Medical necessity: Change to IP, as of 04/29/18, per & MCG M-300; los >2 mn for ongoing management of UTI w/acute metabolic encephalopathy & weakness; urine culture pending; requiring further monitoring, IV abx, & therapies; comorbid advanced age, chronic laws, dementia
[2018-04-30] MEDS: ACETAMINOPHEN 325 MG TAB PO PRN ×2 (07:55→23:27)
[2018-04-30] MEDS: INSULIN LISPRO 100 UNIT/ML SC SCH ×3 (08:02→18:40)
--- NOTE | 2018-04-30 14:11 | HOSPPROG ---
Hospitalist Progress Note Assessment/Plan: 82 yo male with chronic indwelling laws and dementia who lives at assisted living admitted with acute encephalopathy due to UTI and dehydration and weakness. #Acute Metabolic Encephalopathy -resolving but unclear if back to baseline. #Dehydration: resolved #UTI in setting of chronic indwelling catheter -culture shows GNR, Identification pending #pAfib #chronic AC #Generalized Weakness, persistent -initially refusing SNF, now reconsidering #Dementia #DMII Plan: Cont Rocephin (Day 3), will need 7 days abx total. Can change to PO on discharge. Awaiting cultures for identification Cognitive eval today Awaiting decision on SNF, hopefully reconsiders as he is very weak. Will d/w CM Laws was changed PT/OT Pharmacy is dosing Warfarin. INR is therapeutic cont ISS, hold Metformin Subjective: no cp or sob. feels weak. some confusion Objective: Vital Signs Temp Pulse Resp BP Pulse Ox 36.9 C 80 18 125/65 H 92 04/30/18 12:00 04/30/18 12:00 04/30/18 12:00 04/30/18 12:00 04/30/18 12:00 04/29/18 04/30/18 05/01/18 05:59 05:59 05:59 Intake Total 1355 Output Total 2550 Balance -1195 PT 23.6 SEC (12.0-15.0) H 04/30/18 04:38 INR 2.23 (0.83-1.16) H 04/30/18 04:38 - Physical Exam Constitutional: no apparent distress Eyes: PERRL, EOMI Ears, Nose, Mouth, Throat: moist mucous membranes, hearing normal Cardiovascular: regular rate and rhythym, No edema Respiratory: no respiratory distress, no rales or rhonchi, clear to auscultation Gastrointestinal: normoactive bowel sounds Skin: warm Musculoskeletal: generalized weakness Neurologic: No AAOx3 Psychiatric: encephalopathic Lymph, Heme, Immunologic: No petechiae ICD10 Worksheet Patient Problems: Problems Problem Status Onset Dementia Acute UTI (urinary tract infection) Acute Altered mental status Acute Chest pain Acute Dehydration Acute TIA (transient ischemic attack) Acute
--- NOTE | 2018-04-30 15:29 | ASMTCMCOM ---
CM Note CM Note Notes: Met with pt and SO Komal, pt clearly more confused and unable to get up by himself. Pt needs snf, per Komal, pt has been to [facility] before but would like other option. CM to send referral to [facility]. DC Plan: SNF Date Signed: 04/30/2018 03:28 PM Electronically Signed By:Maxine Park RN
[2018-04-30] MEDS: WARFARIN SODIUM 3 MG TAB PO SCH (20:22)
[2018-04-30] MEDS ORDERED: INSULIN LISPRO 100 UNIT/ML SC ONE (22:43)
[2018-05-01 06:01] LABS: INR 1.82 (0.83-1.16); PROTIME(PATIENT) 21.2 SEC (12.0-15.0)
[2018-05-01] MEDS: INSULIN LISPRO 100 UNIT/ML SC SCH ×3 (09:04→17:22)
[2018-05-01] MEDS ORDERED: levOFLOXACIN 500 MG/DEXTROSE 100 ML IV SCH (09:15)
[2018-05-01] MEDS: NS 1,000 ML IV SCH (10:54)
[2018-05-01] MEDS: POLYETHYLENE GLYCOL 3350 17 GM PKT PO SCH (11:32)
[2018-05-01] MEDS: ERTAPENEM 1 GM in NS 100 ML IV SCH (11:32)
--- NOTE | 2018-05-01 12:03 | HOSPPROG ---
Hospitalist Progress Note Assessment/Plan: 82 yo male with chronic indwelling laws and dementia who lives at assisted living admitted with acute encephalopathy due to UTI and dehydration and weakness. Studies: Urine Culture: Citrobacter Youngae with poly resistance. Resistant to Rocephin. Abx Allergy to Levaquin Assessment: #Acute Metabolic Encephalopathy -resolving but unclear if back to baseline. #Dehydration: ongoing. Will restart IVF #Complicated poly-resistant UTI in setting of chronic indwelling catheter -culture per above -Was receiving Rocephin since admission, culture per above. Abx options are limited given allergy and resistance. Given fever last night and current dehydration, will do Ertapenem today with likely transition to Bactrim soon #Fever: mgmt per above #pAfib #chronic AC #Generalized Weakness, persistent -initially refusing SNF, now reconsidering although still has not agreed #Dementia #DMII #constipated: start Miralax Plan: Abx per above (Day 03/09) Awaiting decision on SNF, hopefully reconsiders as he is very weak. Will d/w CM Laws was changed PT/OT Pharmacy is dosing Warfarin. INR is therapeutic cont ISS, hold Metformin Subjective: feels constipated. Had a fever last night. confussion is intermittent. no cp or sob. bp ok Objective: Vital Signs Temp Pulse Resp BP Pulse Ox 36.3 C 70 16 142/94 H 94 05/01/18 08:00 05/01/18 08:00 05/01/18 08:00 05/01/18 08:00 05/01/18 08:00 04/30/18 05/01/18 05/02/18 05:59 05:59 05:59 Intake Total 1355 1300 Output Total 2550 1950 Balance -1195 -650 PT 21.2 SEC (12.0-15.0) H 05/01/18 04:39 INR 1.82 (0.83-1.16) H 05/01/18 04:39 - Physical Exam Constitutional: no apparent distress Eyes: PERRL, EOMI Ears, Nose, Mouth, Throat: moist mucous membranes, hearing normal Cardiovascular: regular rate and rhythym, No edema Respiratory: no respiratory distress, no rales or rhonchi, clear to auscultation Gastrointestinal: normoactive bowel sounds, soft, non-tender abdomen Skin: warm Neurologic: AAOx3 Psychiatric: interacting appropriately, not anxious, not encephalopathic (not currently encephalopathic) Lymph, Heme, Immunologic: No petechiae ICD10 Worksheet Patient Problems: Problems Problem Status Onset Dementia Acute UTI (urinary tract infection) Acute Altered mental status Acute Chest pain Acute Dehydration Acute TIA (transient ischemic attack) Acute
[2018-05-01] MEDS: ACETAMINOPHEN 325 MG TAB PO PRN (12:36)
[2018-05-01] MEDS ORDERED: WARFARIN SODIUM 3 MG TAB PO ONE (21:00)
[2018-05-02] MEDS: NS 1,000 ML IV SCH (04:51)
[2018-05-02 05:20] LABS: PLATELET COUNT 169 10^3/uL (150-400)
[2018-05-02 05:34] LABS: INR 1.65 (0.83-1.16); PROTIME(PATIENT) 18.8 SEC (12.0-15.0)
[2018-05-02] MEDS: INSULIN LISPRO 100 UNIT/ML SC SCH ×3 (08:15→18:33)
[2018-05-02] MEDS: ERTAPENEM 1 GM in NS 100 ML IV SCH (08:16)
[2018-05-02] MEDS: POLYETHYLENE GLYCOL 3350 17 GM PKT PO SCH (08:42)
--- NOTE | 2018-05-02 11:09 | HOSPPROG ---
Hospitalist Progress Note Assessment/Plan: 82 yo male with chronic indwelling laws and dementia who lives at assisted living admitted with acute encephalopathy due to UTI and dehydration and weakness. Studies: Urine Culture: Citrobacter Youngae with poly resistance. Resistant to Rocephin. Abx Allergy to Levaquin Assessment: #Acute Metabolic Encephalopathy -resolved -cog eval shows the pt is decisional #Dehydration: resolved. Looks Euvolemic #Complicated poly-resistant UTI in setting of chronic indwelling catheter -culture per above -rocephin changed to Ertapenem on 05/01. Received 2 doses of Ertapenem. Will change to Bactrim starting tomorrow for additional 5 days of abx #Fever: on 04/30. None since changing abx #pAfib #chronic AC: INR is low, Pharm is dosing #Generalized Weakness, persistent -initially refusing SNF, now reconsidering although still has not agreed #Dementia #DMII #constipated: stop Miralax (he doesnt want it), start Docusate Plan: Abx per above (Day 04/09) He refuses SNF. Will d/c back to [facility] was changed PT/OT all recommend SNF, he is refusing Pharmacy is dosing Warfarin. INR is low, will need close monitoring. cont ISS, hold Metformin Dispo: anticipate d/c tomorrow Subjective: no cp or sob. wants stool softner changed. no fever. Objective: Vital Signs Temp Pulse Resp BP Pulse Ox 36.8 C 73 16 139/85 H 93 05/02/18 08:27 05/02/18 08:27 05/02/18 08:27 05/02/18 08:27 05/02/18 08:27 Laboratory Results 05/02/18 04:30 05/02/18 04:30 05/01/18 05/02/18 05/03/18 05:59 05:59 05:59 Intake Total 1300 500 Output Total 1950 1250 Balance -650 -750 PT 18.8 SEC (12.0-15.0) H 05/02/18 04:30 INR 1.65 (0.83-1.16) H 05/02/18 04:30 - Physical Exam Constitutional: no apparent distress Eyes: PERRL Ears, Nose, Mouth, Throat: moist mucous membranes, hearing normal Cardiovascular: regular rate and rhythym, No edema Respiratory: no respiratory distress, no rales or rhonchi, clear to auscultation Gastrointestinal: normoactive bowel sounds, soft, non-tender abdomen Skin: warm Musculoskeletal: generalized weakness Neurologic: AAOx3 Psychiatric: interacting appropriately, not anxious, not encephalopathic Lymph, Heme, Immunologic: No petechiae ICD10 Worksheet Patient Problems: Problems Problem Status Onset Dementia Acute UTI (urinary tract infection) Acute Altered mental status Acute Chest pain Acute Dehydration Acute TIA (transient ischemic attack) Acute
--- NOTE | 2018-05-02 15:15 | ASMTCMCOM ---
CM Note CM Note Notes: Per hospitalist, pt is refusing SNF d/c and wants to d//c back to [facility]. He may be ready for d/c tomorrow. He has been accepted by [facility] if he is agreeable. D/C plan: [facility], with possible home care Date Signed: 05/02/2018 03:15 PM Electronically Signed By:FATOU Griffith
[2018-05-02] MEDS: ACETAMINOPHEN 325 MG TAB PO PRN (16:30)
[2018-05-02] MEDS: WARFARIN SODIUM 3 MG TAB PO SCH (20:05)
[2018-05-02] MEDS: DOCUSATE SODIUM 100 MG CAP PO SCH (20:30)
[2018-05-03 05:38] LABS: INR 1.52 (0.83-1.16); PROTIME(PATIENT) 17.6 SEC (12.0-15.0)
[2018-05-03] MEDS: INSULIN LISPRO 100 UNIT/ML SC SCH ×3 (09:31→17:05)
[2018-05-03] MEDS: SULFAMETHOX/TMP 800/160 MG 1 TAB PO SCH ×2 (09:49→20:13)
[2018-05-03] MEDS: DOCUSATE SODIUM 100 MG CAP PO SCH ×2 (09:49→20:13)
--- NOTE | 2018-05-03 11:07 | HOSPPROG ---
Hospitalist Progress Note Assessment/Plan: 82 yo male with chronic indwelling laws and dementia who lives at assisted living admitted with acute encephalopathy due to UTI and dehydration and weakness. Studies: Urine Culture: Citrobacter Youngae with poly resistance. Resistant to Rocephin. Abx Allergy to Levaquin Assessment: #Acute Metabolic Encephalopathy -resolved -cog eval shows the pt is decisional #Dehydration: resolved. Looks Euvolemic #Complicated poly-resistant UTI in setting of chronic indwelling catheter -culture per above -rocephin changed to Ertapenem on 05/01. Received 2 doses of Ertapenem. Bactrim started 05/03. Needs 4 more days of abx. #Fever: on 04/30. None since changing abx #pAfib #chronic AC: INR is low, Pharm is dosing. Monitor closely given starting Bactrim #Generalized Weakness, persistent, The nurse and I evaluated him today. He is not safe for home discharge. He has agreed to SNF. CM is aware and will look for options. #Dementia: passed cog eval #DMII #constipated: stop Miralax (he doesnt want it), started Docusate 05/02 Plan: Abx per above (Day 05/07) He refuses SNF. Will d/c back to [facility] Laws was changed, This is chronic PT/OT all recommend SNF, he now agrees Pharmacy is dosing Warfarin. INR is low, will need close monitoring. cont ISS, hold Metformin Dispo: awaiting placement as the pt changed his mind re SNF today. Would not be safe for home d/c Subjective: no cp or sob. no n/v. still very weak. Difficult time transitioning from bed to chair Objective: Vital Signs Temp Pulse Resp BP Pulse Ox 36.7 C 80 16 148/86 H 90 L 05/03/18 08:53 05/03/18 08:53 05/03/18 08:53 05/03/18 08:53 05/03/18 08:53 Laboratory Results 05/02/18 04:30 05/02/18 04:30 05/02/18 05/03/18 05/04/18 05:59 05:59 05:59 Intake Total 500 250 Output Total 1250 2100 Balance -750 -1850 PT 17.6 SEC (12.0-15.0) H 05/03/18 04:15 INR 1.52 (0.83-1.16) H 05/03/18 04:15 - Physical Exam Constitutional: no apparent distress Eyes: PERRL, EOMI Ears, Nose, Mouth, Throat: moist mucous membranes, hearing normal Cardiovascular: regular rate and rhythym, No edema Respiratory: no respiratory distress, no rales or rhonchi, clear to auscultation Gastrointestinal: normoactive bowel sounds Skin: warm Musculoskeletal: generalized weakness Neurologic: AAOx3 Psychiatric: interacting appropriately, not anxious, not encephalopathic Lymph, Heme, Immunologic: No petechiae ICD10 Worksheet Patient Problems: Problems Problem Status Onset Dementia Acute UTI (urinary tract infection) Acute Altered mental status Acute Chest pain Acute Dehydration Acute TIA (transient ischemic attack) Acute
[2018-05-03] MEDS ORDERED: WARFARIN SODIUM 2 MG TAB PO ONE (16:00)
[2018-05-03] MEDS: WARFARIN SODIUM 2 MG TAB PO SCH (20:14)
[2018-05-04 05:30] LABS: INR 1.68 (0.83-1.16)
[2018-05-04] MEDS: INSULIN LISPRO 100 UNIT/ML SC SCH ×3 (08:18→17:46)
--- NOTE | 2018-05-04 08:35 | HOSPPROG ---
Hospitalist Progress Note Assessment/Plan: #Metabolic encephalopathy: resolved -decisional per cog evaluation #Complicated Citrobacter UTI with indwelling laws; will change it out today -Bactrim through 05/07 #Paroxysmal a fib: INR low, cont Coumadin #Generalized #Acute Metabolic Encephalopathy -resolved -cog eval shows the pt is decisional #Dehydration: resolved. Looks Euvolemic #Dementia: passed cog eval #DMII #constipation: stop Miralax (he doesnt want it), started Docusate 05/02 #Disp: will DC to [facility] tomorrow if clinically stable Subjective: no acute events Objective: Vital Signs Temp Pulse Resp BP Pulse Ox 36.8 C 75 18 147/87 H 91 L 05/04/18 07:54 05/04/18 07:54 05/04/18 07:54 05/04/18 07:54 05/04/18 07:54 Laboratory Results 05/02/18 04:30 05/02/18 04:30 05/03/18 05/04/18 05/05/18 05:59 05:59 05:59 Intake Total 250 Output Total 2099 2049 Balance -1849 -2049 PT 19.0 SEC (12.0-15.0) H 05/04/18 04:56 INR 1.68 (0.83-1.16) H 05/04/18 04:56 - Time Spent With Patient Time Spent with Patient: greater than 35 minutes Time Spent with Patient: Greater than 35 minutes spent on this patients care, greater than 50% of time spent counseling, educating, and coordinating care regarding the above mentioned plan. - Physical Exam Constitutional: no apparent distress Eyes: PERRL Ears, Nose, Mouth, Throat: moist mucous membranes Cardiovascular: regular rate and rhythym Respiratory: no respiratory distress Genitourinary: laws in urethra Skin: warm Psychiatric: encephalopathic ICD10 Worksheet Patient Problems: Problems Problem Status Onset Dementia Acute UTI (urinary tract infection) Acute Altered mental status Acute Chest pain Acute Dehydration Acute TIA (transient ischemic attack) Acute
[2018-05-04] MEDS: DOCUSATE SODIUM 100 MG CAP PO SCH ×2 (09:20→20:25)
[2018-05-04] MEDS: SULFAMETHOX/TMP 800/160 MG 1 TAB PO SCH (09:20)
[2018-05-04] MEDS: ACETAMINOPHEN 325 MG TAB PO PRN (15:51)
[2018-05-04] MEDS: ERTAPENEM 1 GM in NS 100 ML IV SCH (17:38)
[2018-05-04] MEDS ORDERED: NS 1,000 ML IV SCH (19:45)
[2018-05-04] MEDS: WARFARIN SODIUM 3 MG TAB PO SCH (20:26)
[2018-05-05 05:15] LABS: INR 1.91 (0.83-1.16)
[2018-05-05] MEDS: ERTAPENEM 1 GM in NS 100 ML IV SCH (08:19)
[2018-05-05] MEDS: DOCUSATE SODIUM 100 MG CAP PO SCH ×2 (08:23→21:02)
[2018-05-05] MEDS: INSULIN LISPRO 100 UNIT/ML SC SCH ×3 (08:31→18:26)
--- NOTE | 2018-05-05 09:35 | HOSPPROG ---
Hospitalist Progress Note Assessment/Plan: #Metabolic encephalopathy: resolved -decisional per cog evaluation #Complicated Citrobacter UTI with indwelling laws; changed out 05/04 -improved sxs with Ertapenem; no leukocytosis. -tx for 1-2 more days with Ertapenem, then transition back to Bactrim for 10 days total abx (06/10) #Paroxysmal a fib: INR low, cont Coumadin #Acute Metabolic Encephalopathy -resolved -cog eval shows the pt is decisional #Dehydration: resolved. Looks Euvolemic #Dementia: passed cog eval #DMII: diet-controlled, SSI #constipation: stop Miralax (he doesnt want it), started Docusate 05/02 #Disp: will DC to [facility] in 1-2 days Subjective: more alert and talkative today Objective: Vital Signs Temp Pulse Resp BP Pulse Ox 37.1 C 74 18 128/74 H 91 L 05/05/18 07:48 05/05/18 07:48 05/05/18 07:48 05/05/18 07:48 05/05/18 07:48 Laboratory Results 05/04/18 18:42 05/05/18 04:34 05/04/18 05/05/18 05/06/18 05:59 05:59 05:59 Intake Total 390 Output Total 2049 1999 Balance -2049 PT 21.0 SEC (12.0-15.0) H 05/05/18 04:34 INR 1.91 (0.83-1.16) H 05/05/18 04:34 - Time Spent With Patient Time Spent with Patient: greater than 35 minutes Time Spent with Patient: Greater than 35 minutes spent on this patients care, greater than 50% of time spent counseling, educating, and coordinating care regarding the above mentioned plan. - Physical Exam Constitutional: other (brighter today, more oriented) Eyes: PERRL Ears, Nose, Mouth, Throat: moist mucous membranes Cardiovascular: regular rate and rhythym Respiratory: no respiratory distress Gastrointestinal: normoactive bowel sounds Genitourinary: no bladder fullness, laws in urethra (clear yellow urine) Skin: warm Neurologic: other (alert to hospital, city. Could name his friend Komal (much improved from yesterday)) ICD10 Worksheet Patient Problems: Problems Problem Status Onset Dementia Acute UTI (urinary tract infection) Acute Altered mental status Acute Chest pain Acute Dehydration Acute TIA (transient ischemic attack) Acute
[2018-05-05] MEDS ORDERED: NS 1,000 ML IV SCH (13:45)
[2018-05-05] MEDS: ACETAMINOPHEN 325 MG TAB PO PRN (16:21)
[2018-05-05] MEDS: WARFARIN SODIUM 3 MG TAB PO SCH (21:02)
[2018-05-06 05:39] LABS: INR 2.03 (0.83-1.16)
[2018-05-06] MEDS ORDERED: MINERAL OIL 60 ML OIL PO ONE (08:18)
[2018-05-06] MEDS: DOCUSATE SODIUM 100 MG CAP PO SCH ×2 (08:35→19:57)
[2018-05-06] MEDS: ERTAPENEM 1 GM in NS 100 ML IV SCH (08:35)
[2018-05-06] MEDS ORDERED: MAGNESIUM HYDROXIDE 30 ML UDCUP PO PRN (08:39)
[2018-05-06] MEDS ORDERED: LACTULOSE 20 GM/30 ML UDCUP PO PRN (08:39)
[2018-05-06] MEDS ORDERED: POLYETHYLENE GLYCOL 3350 17 GM PKT PO PRN (08:39)
[2018-05-06] MEDS: INSULIN LISPRO 100 UNIT/ML SC SCH ×3 (09:11→18:24)
[2018-05-06] MEDS: SENNOSIDES/DOCUSATE SODIUM TAB PO SCH ×2 (09:56→19:56)
[2018-05-06] MEDS ORDERED: NS 1,000 ML IV SCH (10:00)
[2018-05-06] MEDS: ACETAMINOPHEN 325 MG TAB PO PRN (11:28)
--- NOTE | 2018-05-06 13:13 | HOSPPROG ---
Hospitalist Progress Note Assessment/Plan: #Metabolic encephalopathy -waxing and waning -constipation may be contributing #Fever: yesterday. CT reassuring with no abscess. Resp PCR, CXR negative -blood cultures pending. Cont IV Ertapenem #Complicated Citrobacter UTI with indwelling laws; changed out 05/04 -improved sxs with Ertapenem; no leukocytosis. -tx for 1-2 more days with Ertapenem, then transition back to Bactrim for 10 days total abx (07/10) #Paroxysmal a fib: INR at goal. Coumadin #Hyponatremia: gentle IVFs #Constipation: early impaction. Had large BM today #Dehydration: resolved. Looks Euvolemic #Dementia: passed cog eval #DMII: diet-controlled, SSI #Disp: DC to SNF when clinically stable Subjective: constipated. Denies abd pain Objective: Vital Signs Temp Pulse Resp BP Pulse Ox 36.9 C 79 14 141/90 H 93 05/06/18 07:46 05/06/18 07:46 05/06/18 07:46 05/06/18 07:46 05/06/18 07:46 Microbiology 05/05/18 16:58 Respiratory Panel (PCR) - Final Nasal, Sinus - Anaerobic Tube/Swab No Organism Detected By Pcr Laboratory Results 05/06/18 04:41 05/06/18 04:51 05/05/18 05/06/18 05/07/18 05:59 05:59 05:59 Intake Total 390 1400 Output Total 1999 2625 Balance -1610 -1225 PT 22.0 SEC (12.0-15.0) H 05/06/18 04:51 INR 2.03 (0.83-1.16) H 05/06/18 04:51 - Time Spent With Patient Time Spent with Patient: greater than 35 minutes Time Spent with Patient: Greater than 35 minutes spent on this patients care, greater than 50% of time spent counseling, educating, and coordinating care regarding the above mentioned plan. - Physical Exam Constitutional: no apparent distress, other (sitting in chair. Appears brighter than yesterday) Eyes: PERRL Ears, Nose, Mouth, Throat: moist mucous membranes Cardiovascular: regular rate and rhythym Respiratory: no respiratory distress Gastrointestinal: normoactive bowel sounds, soft, non-tender abdomen, No tenderness Genitourinary: no bladder fullness Skin: warm Musculoskeletal: full muscle strength Psychiatric: encephalopathic (improved. Can tell me place, why in hospital, not date) ICD10 Worksheet Patient Problems: Problems Problem Status Onset Dementia Acute UTI (urinary tract infection) Acute Altered mental status Acute Chest pain Acute Dehydration Acute TIA (transient ischemic attack) Acute
[2018-05-06] MEDS: BISACODYL 10 MG SUPP PR PRN (14:29)
--- NOTE | 2018-05-06 15:08 | ASMTCMCOM ---
ISAAC Note CM Note Notes: CM spoke with . Pt was accepted at [facility] in [place] and able to go once medically stable. Plan: [facility] Date Signed: 05/06/2018 03:08 PM Electronically Signed By:KATJA Beck
[2018-05-06] MEDS: WARFARIN SODIUM 2 MG TAB PO SCH (19:57)
[2018-05-07 05:38] LABS: PROTIME(PATIENT) 21.7 SEC (12.0-15.0)
[2018-05-07 07:18] VITALS: BP 144/90
[2018-05-07] MEDS: INSULIN LISPRO 100 UNIT/ML SC SCH ×3 (08:09→17:42)
[2018-05-07] MEDS: ERTAPENEM 1 GM in NS 100 ML IV SCH (08:25)
[2018-05-07] MEDS: DOCUSATE SODIUM 100 MG CAP PO SCH (08:26)
[2018-05-07] MEDS: SENNOSIDES/DOCUSATE SODIUM TAB PO SCH (08:26)
[2018-05-07] MEDS: BISACODYL 10 MG SUPP PR PRN (11:29)
--- NOTE | 2018-05-07 12:31 | PDIAF ---
- Diagnosis Diagnosis: Compilcated UTI Code Status: Full Code - Medication Management Discharge Medications: electronically signed and located in the Home Medication List. - Orders Diet Recommendation: no restrictions on diet Diet Texture: Regular Texture Diet - Labs/Radiology PT/INR Date: 05/08/18 (daily. Monitor with Bactrim) - Follow Up Care Current Providers and Referrals: Evelio Dacosta DO [Primary Care Provider] - As per Instructions
--- NOTE | 2018-05-07 12:44 | ASDISCHSUM ---
Discharge Information Plan Status:SNF Medically Cleared to Leave: Discharge Date: D/C Disposition:[facility] Facility [facility] D/C Disposition:[facility] Facility Projected Discharge Date:05/07/2018 11:00 AM Transportation at D/C:Wheelchair Van Discharge Delay Reason: Follow-Up Date:05/07/2018 11:00 AM Discharge Slot: Final Diagnosis: Placement Information Referral Type:*Home Health Care Services Referral ID:[id number] Provider Name: Address 1: Phone Number: Address 2: Fax Number: City: Selection Factors: State: Referral Type:*Fpc/SNF Referral ID:[id number] Provider Name:Misha tucker [place] Address 1:[address] Address 2: City:[place] Selection Factors: State:[place] Patient Contact Information Contact Name:YANIRA Relationship:Friend Address: Work Phone: [facility]:[place] Alternate Phone: State/Zip Code:[place] [address] Email: Financial Information Financial Class:Medicare Primary Plan Desc:MEDICARE INPATIENT Primary Plan Number:[id number] Secondary Plan Desc:[place] Secondary Plan Number:[id number] Assessment Information LACE LACE Length of stay for Answers: 7-13 days current admission Acuity / Level of Answers: Yes Care: Did the patient have an inpatient admission? Comorbidities - select Answers: Coronary Artery Disease all that apply Dementia Diabetes (uncontrolled or controlled) Previous myocardial infarction Other Notes: AFib; Frequent UTIs # of Emergency department Answers: 5-8 visits in the last 6 months Score: 20 Date Signed: 05/07/2018 12:40 PM Electronically Signed By:KATJA Beck [facility] ISAAC Progress Note CM Note CM Note Notes: Met with pt to discuss dc poc. PT/OT recommend SNF, pt does not want to go. States, he's been home for 2 months without falling. At times pt seems confused but will not agree to SNF. When asked if he could go to SO home, he says he doesn't not want to put that on her. Pt agrees to home care, he is current with [facility] Plan: Home care/ [facility] Date Signed: 04/29/2018 03:35 PM Electronically Signed By:Maxine Park RN [facility] CM Progress Note CM Note CM Note Notes: Met with pt and SO Komal, pt clearly more confused and unable to get up by himself. Pt needs snf, per Komal, pt has been to [facility] before but would like other option. CM to send referral to [facility]. DC Plan: SNF Date Signed: 04/30/2018 03:28 PM Electronically Signed By:Maxine Park RN [facility] CM Progress Note CM Note CM Note Notes: Per hospitalist, pt is refusing SNF d/c and wants to d//c back to [facility]. He may be ready for d/c tomorrow. He has been accepted by [facility] if he is agreeable. D/C plan: [facility], with possible home care Date Signed: 05/02/2018 03:15 PM Electronically Signed By:FATOU Griffith [facility] CM Progress Note CM Note CM Note Notes: CM spoke with . Pt was accepted at [facility] in [place] and able to go once medically stable. Plan: [facility] Date Signed: 05/06/2018 03:08 PM Electronically Signed By:KATJA Beck Case Management Discharge Plan Note Case Management Discharge Discharge Order Complete? Answers: Yes Patient to Obtain Answers: Other Notes: Transport scheduled by [facility] for 530pm Transportation Arranged Answers: Other Notes: [facility] to transport Case Management Transport Answers: Yes Form Complete Faxed Final Orders Answers: Yes Agency/Facility Transfer Answers: Yes Report Printed & Faxed to Receiving Agency Family Notified Answers: Yes Notes: Komal [phone] Discharge Comments Notes: Pt is getting discharged to [facility] in [place]. Transport scheduled for 5:30pm. CM discussed plan with pt, he is agreeable. CM notified pt's friend Komal per pt's request. No other CM needs identified at this time. Date Signed: 05/07/2018 12:39 PM Electronically Signed By:KATJA Beck Intervention Information Intervention Type:*GROVES-Signed Date of Service:04/29/2018 10:46 AM Patient Type:Observation Staff Member:Trice Chan Hours: Discipline: Severity: Comment:
--- NOTE | 2018-05-07 12:57 | GDS ---
[f rep st] DISCHARGE SUMMARY DISCHARGE DIAGNOSES: 1. Complicated citrobacter catheter-associated urinary tract infection (present at admission). 2. Paroxysmal atrial fibrillation. 3. Acute metabolic encephalopathy. 4. Dehydration. 5. Dementia. 6. Type-2 diabetes. 7. Constipation. 8. Coronary artery disease. HISTORY OF PRESENT ILLNESS: This is an 82-year-old male with type-2 diabetes, atrial fibrillation, C AD, and frequent UTIs with a chronic indwelling Goodwin who was brought to the ER from his assisted funmi ing facility after being more confused. He was at [facility] in late March for a similar infection. Duri ng the interview, he had no complaints. He denied abdominal pain or dysuria. HOSPITAL COURSE BY PROBLEM: 1. Complicated citrobacter UTI secondary to chronic indwelling Goodwin, which was present on admission : He had initially been started on ceftriaxone, but was found to be resistant. He was then transiti oned to IV ertapenem and then to Bactrim, which were both susceptible. However, he did develop a fev er on 05/05/2018. Abdominal CT was performed and did not show abscess or perinephric stranding. He has been afebrile for greater than 48 hours. Blood cultures remain negative. Other infectious evalu ation that was negative included a respiratory panel and a chest x-ray. We will complete a total of 10 days of antibiotics. He will be transitioned to Bactrim twice a day starting tomorrow for 4 more days. We will monitor his INR while on this medication. His Goodwin was changed on 05/04/2018. 2. Paroxysmal atrial fibrillation: INR was subtherapeutic, but is now at goal at 2. Again, we will monitor with Bactrim with daily INR. 3. Acute metabolic encephalopathy secondary to UTI: This has resolved. He does have waxing and wan ing with his underlying dementia. 4. Dementia: This is stable. Again, he has waxing and waning. We will avoid central-acting medica tions. 5. Severe constipation; abdominal CT showed early impaction. He has had 2 large BMs with suppositor ies. We will continue laxatives at discharge. 6. CAD: He had no chest pain. DISPOSITION: The patient is stable for discharge to [facility] for rehabilitation. NEW MEDICATION: Bactrim double strength 1 tab twice daily (start 05/08/2018 for 4 days). FOLLOWUP: 1. Daily INR. 2. Primary care physician. PHYSICAL EXAMINATION: VITAL SIGNS: Temperature 36.5, blood pressure 144/90, heart rate 70s, respira tion 18, and 92% on room air. GENERAL: Sitting up in bed. No acute distress. HEENT: PERRLA. Roland st mucous membranes. CV: Regular rhythm. LUNGS: Clear. ABDOMEN: Soft and nontender. Positive b owel sounds. : Goodwin in place with clear yellow urine. NEURO: 2-12 intact. PSYCH: Alert to ho spital and that he has a urinary infection, not to date. TIME SPENT ON DISCHARGE: Greater than 30 minutes at bedside with patient and coordinating with Case Management. /[id number]/MODL
[2018-05-07] MEDS ORDERED: WARFARIN SODIUM 4 MG TAB PO ONE (13:30)
== END 2018-05-07 17:49 | DRG 698 ==
LOC: EDUNIT# → F3E 20:40 → OBSVTOIN 04-29 09:53
PROVIDERS: ADMIT Internal Medicine; ATTEND Internal Medicine
DX: T83.518A Infection and inflammatory reaction due to other urinary catheter, initial encounter (principal); G93.41 Metabolic encephalopathy; N39.0 Urinary tract infection, site not specified; I48.0 Paroxysmal atrial fibrillation; E86.0 Dehydration; F03.90 Unspecified dementia, unspecified severity, without behavioral disturbance, psychotic disturbance, mood disturbance, and anxiety; E11.9 Type 2 diabetes mellitus without complications; K59.00 Constipation, unspecified; I25.10 Atherosclerotic heart disease of native coronary artery without angina pectoris; I25.2 Old myocardial infarction; Z79.01 Long term (current) use of anticoagulants; Z79.84 Long term (current) use of oral hypoglycemic drugs
CPT/HCPCS: 92507-GN; 92523-GN; 96365; 97116-GP; 97161-GP; 97166-GO; 97530-GO; 97530-GP; 97535-GO; G0378; J0696; J1335; J1815; J2543; J3370

== ENCOUNTER 2018-06-15 22:42 | Emergency (ER) | payer OTHER ==
--- NOTE | 2018-06-15 22:55 | EDPHY ---
H & P Time Seen by Provider: 06/15/18 22:51 HPI/ROS: Chief Complaint: Altered mental status HPI: 82-year-old male with a history of is dementia, coronary artery disease, atrial fibrillation, frequent urinary tract infections is being brought in from [facility] for decreased level of responsiveness. Per EMS the patient has been unresponsive and not answering questions. Per long term staff the patient is normally ambulatory and conversant. This evening he was noted to have decreased responsiveness. Blood sugar was 123. Vital signs have been normal. Patient has been maintaining his airway and has been cleansed. He has a paced rhythm on his ECG. He was given Narcan by EMS with no change. Patient is awake and answering questions for me. He patient states he has no complaints. He knows that he is in the hospital. Is not know a date is. Denies any pain. No shortness of breath. No abdominal pain. No headache. He does have a [facility] MOST form which was signed on the of this month indicating full resuscitation. ROS: 10 systems were reviewed and were negative except those elements noted in the HPI. PMH: Dementia, coronary artery disease, atrial fibrillation, frequent urinary tract infections Social History: No smoking, no alcohol, no recreational drug use Family History: non-contributory Physical Exam: Gen: Awake, Alert, No Distress HEENT: Nose: no rhinorrhea Eyes: PERRLA, EOMI Mouth: Moist mucosa Neck: Supple, no JVD Chest: nontender, lungs clear to auscultation Heart: S1, S2 normal, no murmur Abd: Soft, non-tender, no guarding Back: no CVA tenderness, no midline tenderness Ext: no edema, non-tender Skin: no rash Neuro: CN II-XII intact, Sensation grossly intact, Strength 5/5 in bilateral upper and lower extremities - Personal History Tetanus Vaccine Date: WITHIN 10 YRS - Medical/Surgical History Hx Asthma: Yes Hx Chronic Respiratory Disease: No Hx Diabetes: No Hx Cardiac Disease: Yes Hx Renal Disease: No Hx Cirrhosis: No Hx Alcoholism: No Hx HIV/AIDS: No Hx Splenectomy or Spleen Trauma: No Other PMH: HTN, MIx1, angiogram,Pacer, cardiac cath, hernia repair, bladder complications w/ qid cath, fx uti's, atrial fibrillation, neuropathy, 'mild' diabetes, dementia - Social History Smoking Status: Never smoked Constitutional: Initial Vital Signs Temperature (C) 36.3 C 06/15/18 22:49 Heart Rate 78 06/15/18 22:49 Respiratory Rate 18 06/15/18 22:49 Blood Pressure 142/91 H 06/15/18 22:49 O2 Sat (%) 98 06/15/18 22:49 O2 Delivery Mode Nasal Cannula O2 (L/minute) 2 Allergies/Adverse Reactions: levofloxacin [From Levaquin] Allergy (Severe, Verified 06/15/18 23:02) DELIRIUM [employer]ATHERS Allergy (Mild, Uncoded 04/28/18 15:49) TESTED POSITIVE DUST Allergy (Mild, Uncoded 04/28/18 15:49) TESTED POSITIVE Home Medications: Medication Instructions Recorded Furosemide [Lasix 20 MG (*)] 20 mg PO DAILY 12/09/13 metFORMIN HCL [Metformin HCl] 500 mg PO DAILY 02/27/17 Warfarin Sodium 3 mg PO MOTUTHSA@11/25/17 Gabapentin [Neurontin 300 MG (*)] 300 mg PO BID 03/29/18 Warfarin Sodium [Coumadin 2MG (*)] 2 mg PO SUWEFR@03/29/18 Acetaminophen [Tylenol 325mg (*)] 650 mg PO Q4HRS PRN tab 04/01/18 Sennosides/Docusate Sodium 1 tab PO DAILY 04/28/18 [Senokot-S] Polyethylene Glycol 3350 [Miralax 17 gm PO DAILY PRN pkt 05/07/18 17 gm (*)] Sennosides/Docusate Sodium 1 - 2 tab PO BID tab 05/07/18 [Senokot-S] Lactobacillus Tablet 06/15/18 Lidocaine Pain Relief 06/15/18 Medical Decision Making ED Course/Re-evaluation: 82-year-old male with a history of dementia, urinary tract infections being brought in from [facility] for altered mental status. Patient is awake, alert. Answering questions. Denies being in any discomfort. Laboratory evaluations are unremarkable. Urinalysis is likely consistent with colonization. Urine cultures been sent. Given his indwelling catheter I do not want to start him and antibiotics at this time. He is afebrile. His vital signs are otherwise unremarkable. He is awake alert. Plan will be to discharge him back to his nursing care facility and follow up with primary care physician. I do feel there is a behavioral component to his change in mentation. When the patient arrived he was noncompliant with paramedics or staff. When I began speaking with him he immediately opened his eyes and was conversant with me. - Data Points Laboratory Results: Laboratory Results 06/15/18 22:45 06/15/18 22:45 06/15/18 06/15/18 06/15/18 22:55 22:45 22:45 WBC 7.95 10^3/uL 10^3/uL (3.80-9.50) RBC 4.55 10^6/uL 10^6/uL (4.40-6.38) Hgb 13.3 g/dL L g/dL (13.7-17.5) Hct 39.8 % L % (40.0-51.0) MCV 87.5 fL fL (81.5-99.8) MCH 29.2 pg pg (27.9-34.1) MCHC 33.4 g/dL g/dL (32.4-36.7) RDW 14.8 % % (11.5-15.2) Plt Count 244 10^3/uL 10^3/uL (150-400) MPV 10.5 fL fL (8.7-11.7) Neut % (Auto) 61.1 % % (39.3-74.2) Lymph % (Auto) 26.2 % % (15.0-45.0) [place] % (Auto) 9.7 % % (4.5-13.0) Eos % (Auto) 2.1 % % (0.6-7.6) Baso % (Auto) 0.4 % % (0.3-1.7) Nucleat RBC Rel Count 0.0 % % (0.0-0.2) Absolute Neuts (auto) 4.86 10^3/uL 10^3/uL (1.70-6.50) Absolute Lymphs (auto) 2.08 10^3/uL 10^3/uL (1.00-3.00) Absolute Monos (auto) 0.77 10^3/uL 10^3/uL (0.30-0.80) Absolute Eos (auto) 0.17 10^3/uL 10^3/uL (0.03-0.40) Absolute Basos (auto) 0.03 10^3/uL 10^3/uL (0.02-0.10) Absolute Nucleated RBC 0.00 10^3/uL 10^3/uL (0-0.01) Immature Gran % 0.5 % % (0.0-1.1) Immature Gran # 0.04 10^3/uL 10^3/uL (0.00-0.10) Sodium 133 mEq/L L mEq/L (135-145) Potassium 4.3 mEq/L mEq/L (3.5-5.2) Chloride 96 mEq/L L mEq/L (97-110) Carbon Dioxide 29 mEq/l mEq/l (22-31) Anion Gap 8 mEq/L mEq/L (6-14) BUN 19 mg/dL mg/dL (7-23) Creatinine 0.9 mg/dL mg/dL (0.7-1.3) Estimated GFR > 60 Glucose 100 mg/dL mg/dL (70-100) Calcium 9.2 mg/dL mg/dL (8.5-10.4) Urine Color YELLOW Urine Appearance CLEAR Urine pH 6.0 (5.0-7.5) Ur Specific [place] 1.005 (1.002-1.030) Urine Protein NEGATIVE (NEGATIVE) Urine Ketones NEGATIVE (NEGATIVE) Urine Blood 2+ H (NEGATIVE) Urine Nitrate NEGATIVE (NEGATIVE) Urine Bilirubin NEGATIVE (NEGATIVE) Urine Urobilinogen NEGATIVE EU EU (0.2-1.0) Ur Leukocyte Esterase TRACE H (NEGATIVE) Urine RBC 5-10 /hpf H /hpf (0-3) Urine WBC 5-10 /hpf H /hpf (0-3) Ur Epithelial Cells TRACE /lpf /lpf (NONE-1+) Calcium Oxalate Crystal PRESENT /hpf /hpf (NONE-1+) Urine Bacteria TRACE /hpf H /hpf (NONE SEEN) Hyaline Casts 15-25 /lpf H /lpf (0-1) Urine Mucus TRACE /lpf /lpf (NONE-1+) Urine Glucose NEGATIVE (NEGATIVE) Departure - Departure Disposition: Home, Routine, Self-Care Clinical Impression: Altered mental status Condition: Good Instructions: Altered Mental Status (ED) Additional Instructions: Follow up with primary care physician in 2-3 days for further evaluation and for follow-up on your urine culture results. Referrals: Evelio Dacosta, [Primary Care Provider] - As per Instructions
[2018-06-15 23:03] LABS: PLATELET COUNT 244 10^3/uL (150-400)
[2018-06-16 01:37] VITALS: BP 113/74
== END 2018-06-16 01:37 | disposition home or self-care (01) ==
LOC: EDUNIT#
DX: R41.82 Altered mental status, unspecified (principal); I48.0 Paroxysmal atrial fibrillation; F03.90 Unspecified dementia, unspecified severity, without behavioral disturbance, psychotic disturbance, mood disturbance, and anxiety; E11.9 Type 2 diabetes mellitus without complications; I25.10 Atherosclerotic heart disease of native coronary artery without angina pectoris; I25.2 Old myocardial infarction; Z79.01 Long term (current) use of anticoagulants; Z79.4 Long term (current) use of insulin

== ENCOUNTER 2018-08-11 19:24 | Emergency (ER) | payer OTHER | END 2018-08-11 20:24 | disposition home or self-care (01) ==